=== PATIENT | male | born 1930 | race Caucasian/White ===

== ENCOUNTER 2019-02-27 12:41 | Inpatient (IN) | payer MEDICARE, OTHER ==
[~2019-02-27] VITALS: Ht 185.4 cm; Wt 85.0 kg
[2019-02-27 13:42] LABS: BASOPHILS % (AUTO) 0.6 % (0-1); EOSINOPHILS # (AUTO) 0.2 X10'3 (0-0.9); EOSINOPHILS % (AUTO) 2.6 % (0-6); HEMATOCRIT 43.7 % (42.0-52.0); HEMOGLOBIN 14.5 g/dl (14.0-17.9); LYMPHOCYTES # (AUTO) 1.5 X10'3 (1.1-4.8); LYMPHOCYTES % (AUTO) 16.4 % (21-51); MEAN CORPUSCULAR HEMOGLOBIN 30.6 PG (27.0-31.0); MEAN CORPUSCULAR HGB CONC 33.2 g/dL (33.0-36.5); MEAN CORPUSCULAR VOLUME 92.2 FL (78-98); MEAN PLATELET VOLUME 8.1 FL (7.4-10.4); MONOCYTES # (AUTO) 0.6 X10'3 (0-0.9); NEUTROPHILS # (AUTO) 6.5 X10'3 (1.8-7.7); NEUTROPHILS % (AUTO) 73.4 % (42-75); PLATELET COUNT 223 X10'3 (140-440); RED BLOOD COUNT 4.74 X10'6 (4.70-6.10); RED CELL DISTRIBUTION WIDTH 15.2 % (11.5-14.5); WHITE BLOOD COUNT 8.9 X10'3 (4.5-11.0)
[2019-02-27 13:54] LABS: ALANINE AMINOTRANSFERASE 29 U/L (12-78); ALBUMIN 4.1 G/DL (3.4-5.0); ALBUMIN/GLOBULIN RATIO 1.1 (1.1-1.5); ALKALINE PHOSPHATASE 73 IU/L (46-116); ANION GAP 4 (8-16); ASPARTATE AMINO TRANSFERASE 23 U/L (10-37); BILIRUBIN,TOTAL 0.6 MG/DL (0.1-1.0); BLOOD UREA NITROGEN 31 MG/DL (7-18); BUN/CREATININE RATIO 18.6 (5.4-32.0); CALCIUM 9.9 MG/DL (8.5-10.1); CHLORIDE 102 MMOL/L (99-107); CREATININE 1.67 MG/DL (0.60-1.10); GLUCOSE 113 MG/DL (70-104); POTASSIUM 4.6 MMOL/L (3.5-5.1); SODIUM 139 MMOL/L (135-145); TOTAL CARBON DIOXIDE 32.9 MMOL/L (24-32); TOTAL PROTEIN 7.9 G/DL (6.4-8.2); eGFR 39 ML/MIN
[2019-02-27 13:56] LABS: LIPASE 204 U/L (73-393); TROPONIN I 0.06 NG/ML (0.0-0.05)
[2019-02-27] MEDS ORDERED: morphine 4 MG/ML inj SYRINge IV PRN (14:35)
[2019-02-27] MEDS ORDERED: ondansetron/PF 4mg/2ml inj IV ONE (14:35)
[2019-02-27] MEDS ORDERED: APIX2.5T PO (15:37)
[2019-02-27] MEDS ORDERED: ACET-75 PO (15:37)
[2019-02-27] MEDS ORDERED: ALBU8.5H8 INH (15:37)
[2019-02-27] MEDS ORDERED: FURO-150 PO (15:37)
[2019-02-27] MEDS ORDERED: AMLO5TAB PO (15:37)
[2019-02-27 15:57] LABS: CLARITY,URINE CLEAR (Clear); COLOR,URINE STRAW (Yellow); GLUCOSE, URINE NEGATIVE (Neg); KETONES,URINE TRACE mg/dl (Neg); LEUKOCYTE ESTERASE ,URINE NEGATIVE (Neg); NITRITES, URINE NEGATIVE (Neg); OCCULT BLOOD,URINE SMALL (Neg); PH,URINE 5.5 (4.8-8.0); PROTEIN,URINE TRACE mg/dl (Neg); UROBILINOGEN,URINE 0.2 E.U/dL (0.2-1.0)
[2019-02-27] MEDS ORDERED: morphine 2 MG/ML inj. syringe IV PRN ×2 (16:00)
[2019-02-27] MEDS ORDERED: mag hydrox/Alum hydrox/simeth 30ml oral suspension PO PRN (16:00)
[2019-02-27] MEDS ORDERED: ondansetron/PF 4mg/2ml inj IV PRN (16:00)
[2019-02-27] MEDS ORDERED: magnesium hydroxide 30ml (MOM) UD suspension PO PRN (16:00)
[2019-02-27] MEDS ORDERED: acetaminophen 325mg tablet PO PRN (16:00)
[2019-02-27 16:02] LABS: UA COLLECTION TYPE CLN CATCH MIDSTREAM
[2019-02-27 16:03] LABS: BACTERIA,URINE NONE SEEN /HPF (Neg); MUCUS STRANDS NONE SEEN /LPF (Neg); RBC,URINE 0-2 /HPF (0-2); SQUAMOUS EPITHELIAL CELL,UR NONE SEEN /LPF (FEW); WBC,URINE NONE SEEN /HPF (0-4)
[2019-02-27] MEDS: normal saline 1000ml 1,000 ML IV SCH (16:19)
[2019-02-27] MEDS ORDERED: hydrALAZINE 20mg/ml inj. IV PRN (17:00)
[2019-02-27] MEDS ORDERED: LISI10TA4 PO (17:07)
--- NOTE | 2019-02-27 17:17 | NUR ---
echo at bedside
[2019-02-27] MEDS ORDERED: albuterol 2.5 MG/3 ML nebule NEB PRN (17:35)
--- NOTE | 2019-02-27 19:55 | NUR ---
CALLED TO GIVE REPORT. SETH SAID SHE NEEDS TO CALL BACK TO GET REPORT.
[2019-02-27] MEDS ORDERED: heparin, porcine 5000 units/ml vial SQ SCH (20:00)
--- NOTE | 2019-02-27 20:20 | NUR ---
Patient in room PCU 3028. I have received report from Brigette WILSON (ER) and had the opportunity to ask questions and assume patient care. Patient arrived to PCU by vj and ambulated to his bed. dining room attendant placed, vital signs taken. Patient oriented to room and call light. All belongings placed in a bag and put in patient's closet.
[2019-02-27 20:25] VITALS: BP 180/74
[2019-02-27] MEDS: acetaminophen 325mg tablet PO SCH (21:00)
[2019-02-27] MEDS: apixaban 2.5mg tablet PO SCH (21:09)
[2019-02-27] MEDS: carVEDilol 3.125mg tablet PO SCH (21:10)
[2019-02-27 23:00] VITALS: BP 176/74
--- NOTE | 2019-02-28 00:01 | NUR ---
Orders did not get placed for serial troponins when patient was in ER. The 3 hour and 6 hour trops were missed. Orders placed for 12 hour troponin.
[2019-02-28 01:54] LABS: ALBUMIN 3.9 G/DL (3.4-5.0); ANION GAP 3 (8-16); BLOOD UREA NITROGEN 30 MG/DL (7-18); BUN/CREATININE RATIO 19.5 (5.4-32.0); CALCIUM 10.1 MG/DL (8.5-10.1); CHLORIDE 99 MMOL/L (99-107); CREATININE 1.54 MG/DL (0.60-1.10); GLUCOSE 114 MG/DL (70-104); POTASSIUM 4.6 MMOL/L (3.5-5.1); SODIUM 136 MMOL/L (135-145); TOTAL CARBON DIOXIDE 34.3 MMOL/L (24-32); TROPONIN I 0.19 NG/ML (0.0-0.05); eGFR 43 ML/MIN
[2019-02-28 02:00] LABS: BASOPHILS % (AUTO) 0.4 % (0-1); EOSINOPHILS % (AUTO) 0.2 % (0-6); HEMATOCRIT 42.2 % (42.0-52.0); HEMOGLOBIN 14.2 g/dl (14.0-17.9); LYMPHOCYTES % (AUTO) 8.9 % (21-51); MEAN CORPUSCULAR HEMOGLOBIN 30.8 PG (27.0-31.0); MEAN CORPUSCULAR HGB CONC 33.6 g/dL (33.0-36.5); MEAN CORPUSCULAR VOLUME 91.4 FL (78-98); MEAN PLATELET VOLUME 8.1 FL (7.4-10.4); MONOCYTES # (AUTO) 0.7 X10'3 (0-0.9); MONOCYTES % (AUTO) 6.3 % (2-12); NEUTROPHILS # (AUTO) 9.8 X10'3 (1.8-7.7); NEUTROPHILS % (AUTO) 84.2 % (42-75); PLATELET COUNT 217 X10'3 (140-440); RED BLOOD COUNT 4.62 X10'6 (4.70-6.10); RED CELL DISTRIBUTION WIDTH 15.1 % (11.5-14.5); WHITE BLOOD COUNT 11.7 X10'3 (4.5-11.0)
[2019-02-28] MEDS: normal saline 1000ml 1,000 ML IV SCH ×3 (02:00→21:53)
[2019-02-28 03:00] VITALS: BP 163/73
[2019-02-28 06:00] VITALS: BP 169/78
--- NOTE | 2019-02-28 06:22 | NUR ---
Problems reprioritized. Patient report given, questions answered & plan of care reviewed with Marilou WILSNO.
--- NOTE | 2019-02-28 07:22 | NUR ---
Patient in room PCU 3028B. I have received report from Lisa WILSON and had the opportunity to ask questions and assume patient care. Patient awake, alert, sitting up in bed. 2RN skin check performed with Lisa WILSON.
[2019-02-28] MEDS: carVEDilol 3.125mg tablet PO SCH ×2 (08:35→20:29)
[2019-02-28] MEDS: aspirin 81mg tablet.DR PO SCH (08:36)
[2019-02-28] MEDS: apixaban 2.5mg tablet PO SCH ×2 (08:37→20:29)
[2019-02-28] MEDS: atorvastatin 20mg tablet PO SCH (08:37)
[2019-02-28] MEDS: amLODIPine 5mg tablet PO SCH (08:37)
[2019-02-28] MEDS: lisinopril 10 MG tablet PO SCH (08:37)
[2019-02-28 11:00] VITALS: BP 146/63
--- NOTE | 2019-02-28 12:56 | NUR ---
Paged hospitalist, Dr. May, regarding patient's troponin result. PAGER ID: [phone] MESSAGE: Marilou hamilton [phone]. RE Sofiya Herrera8Marie. FYI troponin result is in 0.20, prior was 0.19. Still planning for stress test? Thanks.
[2019-02-28] MEDS ORDERED: aminophylline 250mg/10ml inj. IV PRN (13:00)
[2019-02-28] MEDS ORDERED: regadenoson 0.4mg/5ml syringe IV ONE (13:00)
[2019-02-28] MEDS ORDERED: metoprolol tartrate 1mg/ml inj IV PRN (13:00)
[2019-02-28] MEDS ORDERED: nitroGLYCERIN 0.4mg SUBLingual tab SL PRN (13:00)
[2019-02-28 15:00] VITALS: BP 153/75
[2019-02-28 18:00] VITALS: BP 161/66
--- NOTE | 2019-02-28 18:21 | NUR ---
Problems reprioritized. Patient report given, questions answered & plan of care reviewed with Antonette WILSON. Patient sitting up in bed, sleepy but awakes to voice.
--- NOTE | 2019-02-28 18:22 | NUR ---
Patient in room PCU 3028B. I have received report from Marilou Arriaza RN and had the opportunity to ask questions and assume patient care. Pt denies CP, dizziness, n/v, and rated pain 0/10.
[2019-02-28] MEDS: acetaminophen 325mg tablet PO SCH (20:31)
[2019-02-28 22:00] VITALS: BP 125/54
[2019-03-01] VITALS (14 sets, daily range): BP systolic 94–139; BP diastolic 41–60
[2019-03-01 05:35] LABS: BASOPHILS % (AUTO) 0.1 % (0-1); EOSINOPHILS % (AUTO) 0.1 % (0-6); HEMOGLOBIN 13.1 g/dl (14.0-17.9); LYMPHOCYTES # (AUTO) 1.1 X10'3 (1.1-4.8); LYMPHOCYTES % (AUTO) 8.6 % (21-51); MEAN CORPUSCULAR HEMOGLOBIN 30.6 PG (27.0-31.0); MEAN CORPUSCULAR HGB CONC 33.5 g/dL (33.0-36.5); MEAN CORPUSCULAR VOLUME 91.4 FL (78-98); MEAN PLATELET VOLUME 8.3 FL (7.4-10.4); MONOCYTES # (AUTO) 1.1 X10'3 (0-0.9); MONOCYTES % (AUTO) 8.7 % (2-12); NEUTROPHILS # (AUTO) 10.1 X10'3 (1.8-7.7); NEUTROPHILS % (AUTO) 82.5 % (42-75); PLATELET COUNT 184 X10'3 (140-440); RED BLOOD COUNT 4.27 X10'6 (4.70-6.10); RED CELL DISTRIBUTION WIDTH 15.2 % (11.5-14.5); WHITE BLOOD COUNT 12.3 X10'3 (4.5-11.0)
[2019-03-01 05:47] LABS: ALBUMIN 3.1 G/DL (3.4-5.0); ANION GAP 6 (8-16); BLOOD UREA NITROGEN 27 MG/DL (7-18); BUN/CREATININE RATIO 19.1 (5.4-32.0); CALCIUM 8.6 MG/DL (8.5-10.1); CHLORIDE 102 MMOL/L (99-107); CREATININE 1.41 MG/DL (0.60-1.10); GLUCOSE 104 MG/DL (70-104); POTASSIUM 4.6 MMOL/L (3.5-5.1); SODIUM 135 MMOL/L (135-145); TOTAL CARBON DIOXIDE 26.8 MMOL/L (24-32); eGFR 48 ML/MIN
--- NOTE | 2019-03-01 06:20 | NUR ---
Problems reprioritized. Patient report given, questions answered & plan of care reviewed with STEVE Alas. Pt stable at shift change
--- NOTE | 2019-03-01 06:27 | NUR ---
Patient in room PCU 3027. I have received report from Bob WILSON and had the opportunity to ask questions and assume patient care.
[2019-03-01] MEDS: carVEDilol 3.125mg tablet PO SCH ×2 (06:45→20:51)
[2019-03-01] MEDS: amLODIPine 5mg tablet PO SCH (06:46)
[2019-03-01] MEDS: lisinopril 10 MG tablet PO SCH (06:47)
[2019-03-01] MEDS ORDERED: regadenoson 0.4mg/5ml syringe IV ONE (07:00)
[2019-03-01] MEDS: normal saline 1000ml 1,000 ML IV SCH ×2 (08:20→21:00)
[2019-03-01] MEDS: atorvastatin 20mg tablet PO SCH (09:40)
[2019-03-01] MEDS: aspirin 81mg tablet.DR PO SCH (09:40)
[2019-03-01] MEDS: apixaban 2.5mg tablet PO SCH (09:40)
[2019-03-01] MEDS ORDERED: acetylcysteine 200 MG/ml 4ml vial PO ONE (14:55)
--- NOTE | 2019-03-01 18:18 | NUR ---
Problems reprioritized. Patient report given, questions answered & plan of care reviewed with Armando WILSON.
--- NOTE | 2019-03-01 18:31 | NUR ---
Patient in room PCU 3028. I have received report from Evette WILSON and had the opportunity to ask questions and assume patient care.
--- NOTE | 2019-03-01 18:50 | NUR ---
Pt sitting on edge of bed with visitor at bedside, in no apparent distress. Pt alert and oriented, on room air, lungs clear, bowel sounds present, 20g IV SL in right AC. Plan of care reviewed and questions answered, will monitor pt and provide intervention according to physician orders and protocol.
[2019-03-01] MEDS: acetaminophen 325mg tablet PO SCH (20:52)
[2019-03-01] MEDS: acetylcysteine 200 MG/ml 4ml vial PO SCH (20:54)
[2019-03-02] MEDS: normal saline 1000ml 1,000 ML IV SCH (05:13)
[2019-03-02 05:30] LABS: BASOPHILS % (AUTO) 0.4 % (0-1); EOSINOPHILS # (AUTO) 0.1 X10'3 (0-0.9); EOSINOPHILS % (AUTO) 0.8 % (0-6); HEMOGLOBIN 12.4 g/dl (14.0-17.9); LYMPHOCYTES # (AUTO) 1.1 X10'3 (1.1-4.8); MEAN CORPUSCULAR HEMOGLOBIN 31.2 PG (27.0-31.0); MEAN CORPUSCULAR HGB CONC 33.6 g/dL (33.0-36.5); MEAN CORPUSCULAR VOLUME 92.8 FL (78-98); MEAN PLATELET VOLUME 8.5 FL (7.4-10.4); MONOCYTES # (AUTO) 0.8 X10'3 (0-0.9); MONOCYTES % (AUTO) 8.1 % (2-12); NEUTROPHILS # (AUTO) 8.3 X10'3 (1.8-7.7); NEUTROPHILS % (AUTO) 79.7 % (42-75); PLATELET COUNT 171 X10'3 (140-440); RED BLOOD COUNT 3.98 X10'6 (4.70-6.10); RED CELL DISTRIBUTION WIDTH 15.4 % (11.5-14.5); WHITE BLOOD COUNT 10.4 X10'3 (4.5-11.0)
[2019-03-02 05:50] LABS: ALBUMIN 2.9 G/DL (3.4-5.0); ANION GAP 7 (8-16); BLOOD UREA NITROGEN 34 MG/DL (7-18); BUN/CREATININE RATIO 21.8 (5.4-32.0); CALCIUM 8.5 MG/DL (8.5-10.1); CHLORIDE 102 MMOL/L (99-107); CREATININE 1.56 MG/DL (0.60-1.10); GLUCOSE 97 MG/DL (70-104); POTASSIUM 4.2 MMOL/L (3.5-5.1); SODIUM 135 MMOL/L (135-145); TOTAL CARBON DIOXIDE 26.4 MMOL/L (24-32); eGFR 42 ML/MIN
--- NOTE | 2019-03-02 06:25 | NUR ---
Problems reprioritized. Patient report given, questions answered & plan of care reviewed with Ileana WILSON.
[2019-03-02 07:00] VITALS: BP 116/59
[2019-03-02] MEDS: amLODIPine 5mg tablet PO SCH (08:25)
[2019-03-02] MEDS: atorvastatin 20mg tablet PO SCH (08:25)
[2019-03-02] MEDS: carVEDilol 3.125mg tablet PO SCH (08:26)
[2019-03-02] MEDS: aspirin 81mg tablet.DR PO SCH (08:26)
[2019-03-02] MEDS: lisinopril 10 MG tablet PO SCH (08:26)
[2019-03-02] MEDS: acetylcysteine 200 MG/ml 4ml vial PO SCH (09:21)
[2019-03-02 11:00] VITALS: BP 146/65
[2019-03-02] MEDS ORDERED: APIX5TAB3 PO (12:04)
[2019-03-02] MEDS ORDERED: COR3.125T PO (12:04)
[2019-03-02] MEDS ORDERED: ASPI-1071 PO (12:04)
[2019-03-02] MEDS ORDERED: ATOR20TA66 PO (12:04)
--- NOTE | 2019-03-02 13:00 | NUR ---
Patient was cleared to discharge home. All discharge instructions reviewed and medications reviewed with patient and spouse. All questions answered. F/U appointment made at the [facility] and they will notify the patient if one opens up sooner. Patients stated they will call for the F/U with Dr. Frey. ANKUR DC'd and tele removed. Patient left in stable condition with no concerns at this time. Patient left in stable condition.
== END 2019-03-02 13:02 | disposition home or self-care (01) | DRG 281 ==
LOC: ER 12:42 → ED HOLD 16:02 → PCU 3S 20:14
PROVIDERS: ADMIT Family Medicine; ATTEND Family Medicine
DX: I16.0 Hypertensive urgency (principal); I21.A1 Myocardial infarction type 2; N17.9 Acute kidney failure, unspecified; I48.20 Chronic atrial fibrillation, unspecified; I74.09 Other arterial embolism and thrombosis of abdominal aorta; I12.9 Hypertensive chronic kidney disease with stage 1 through stage 4 chronic kidney disease, or unspecified chronic kidney disease; I35.0 Nonrheumatic aortic (valve) stenosis; K76.89 Other specified diseases of liver; E86.0 Dehydration; N18.9 Chronic kidney disease, unspecified; Z90.79 Acquired absence of other genital organ(s); Z87.891 Personal history of nicotine dependence; Z79.01 Long term (current) use of anticoagulants; Z79.899 Other long term (current) drug therapy
CPT/HCPCS: 36415; 70450; 71045; 74176; 74177; 78452; 80048; 80053; 81001; 83690; 84484; 85025; 87081; 93005; 93017; 93306; 96374; 96375; 99285; A9500; G0378; J0280; J2270; J2405; J2785; J7030

== ENCOUNTER 2020-06-02 09:14 | Emergency (ER) | payer OTHER, MEDICARE ==
[~2020-06-02] VITALS: Ht 182.9 cm; Wt 78.0 kg
[~2020-06-02 09:14] MED LIST: ALBU8.5H8 INH; AMLO5TAB PO; APIX2.5T PO; ATOR20TA66 PO; BUDE10.2 INH; CARV3.12 PO; FLUT16SP2 BOTHNARES; FURO-150 PO; LACT1CAP26 PO; POTA20TA19 PO; TIOT4MIS5 IH
[2020-06-02 10:27] LABS: BASOPHILS # (AUTO) 0.1 X10'3 (0-0.2); BASOPHILS % (AUTO) 0.6 % (0-1); EOSINOPHILS # (AUTO) 0.2 X10'3 (0-0.9); EOSINOPHILS % (AUTO) 1.9 % (0-6); HEMATOCRIT 41.4 % (42.0-52.0); HEMOGLOBIN 13.5 g/dl (14.0-17.9); LYMPHOCYTES # (AUTO) 1.1 X10'3 (1.1-4.8); LYMPHOCYTES % (AUTO) 12.3 % (21-51); MEAN CORPUSCULAR HEMOGLOBIN 29.5 PG (27.0-31.0); MEAN CORPUSCULAR HGB CONC 32.7 g/dL (33.0-36.5); MEAN CORPUSCULAR VOLUME 90.1 FL (78-98); MEAN PLATELET VOLUME 6.9 FL (7.4-10.4); MONOCYTES # (AUTO) 0.7 X10'3 (0-0.9); MONOCYTES % (AUTO) 7.9 % (2-12); NEUTROPHILS # (AUTO) 7.2 X10'3 (1.8-7.7); NEUTROPHILS % (AUTO) 77.3 % (42-75); PLATELET COUNT 321 X10'3 (140-440); RED BLOOD COUNT 4.59 X10'6 (4.70-6.10); RED CELL DISTRIBUTION WIDTH 15.1 % (11.5-14.5); WHITE BLOOD COUNT 9.3 X10'3 (4.5-11.0)
[2020-06-02 10:42] LABS: ALANINE AMINOTRANSFERASE 25 U/L (12-78); ALBUMIN 2.8 G/DL (3.4-5.0); ALBUMIN/GLOBULIN RATIO 0.7 (1.1-1.5); ALKALINE PHOSPHATASE 102 IU/L (46-116); ANION GAP 7 (8-16); ASPARTATE AMINO TRANSFERASE 21 U/L (10-37); BILIRUBIN,TOTAL 0.5 MG/DL (0.1-1.0); BLOOD UREA NITROGEN 17 MG/DL (7-18); BUN/CREATININE RATIO 13.1 (5.4-32.0); CALCIUM 9.2 MG/DL (8.5-10.1); CHLORIDE 103 MMOL/L (99-107); GLUCOSE 112 MG/DL (70-104); POTASSIUM 3.5 MMOL/L (3.5-5.1); SODIUM 143 MMOL/L (135-145); TOTAL CARBON DIOXIDE 32.7 MMOL/L (24-32); eGFR 52 ML/MIN
[2020-06-02] MEDS ORDERED: aspirin 81mg tab.chew PO ONE (12:10)
[2020-06-02] MEDS ORDERED: magnesium hydroxide 30ml (MOM) UD suspension PO PRN (12:55)
[2020-06-02] MEDS ORDERED: ondansetron/PF 4mg/2ml inj IV PRN (12:55)
[2020-06-02] MEDS ORDERED: morphine 2 MG/ML inj. syringe IV PRN ×2 (12:55)
[2020-06-02] MEDS ORDERED: mag hydrox/Alum hydrox/simeth 30ml oral suspension PO PRN (12:55)
[2020-06-02] MEDS ORDERED: acetaminophen 325mg tablet PO PRN (12:55)
[2020-06-02 13:00] VITALS: BP 136/64
[2020-06-02 13:20] VITALS: BP 138/67
[2020-06-02 14:58] VITALS: BP 122/68
[2020-06-02] MEDS ORDERED: heparin, porcine 5000 units/ml vial SQ SCH (20:00)
== END 2020-06-02 15:04 | disposition home or self-care (01) ==
LOC: ER 09:14 → UNDOADMIN 12:52 → ED HOLD 12:52 → UNDODISIN 14:58
DX: R06.02 Shortness of breath (principal); I48.91 Unspecified atrial fibrillation; I10 Essential (primary) hypertension; Z98.890 Other specified postprocedural states; Z79.899 Other long term (current) drug therapy
CPT/HCPCS: 32555; 36415; 71045; 71046; 80053; 83880; 84484; 85025; 93005; 99285; G0378

== ENCOUNTER 2020-06-09 07:25 | Day surgery (SDC) | payer MEDICARE, OTHER ==
[~2020-06-09] VITALS: Ht 185.4 cm; Wt 86.5 kg
[2020-06-09 09:00] VITALS: BP_SYST 130; BP_SYST 132; BP_DIAS 64; BP_DIAS 71
[2020-06-09 09:10] VITALS: BP 125/70
[2020-06-09 09:25] VITALS: BP 127/69
[2020-06-09 09:45] VITALS: BP 127/65
== END 2020-06-09 09:57 | disposition home or self-care (01) ==
LOC: SSTAY O 07:25
PROVIDERS: ATTEND Radiology Vascular & Interventional Radiology
DX: J90 Pleural effusion, not elsewhere classified (principal); I48.91 Unspecified atrial fibrillation; I11.0 Hypertensive heart disease with heart failure; I50.9 Heart failure, unspecified; E78.5 Hyperlipidemia, unspecified; Z98.890 Other specified postprocedural states; Z87.891 Personal history of nicotine dependence; Z79.899 Other long term (current) drug therapy
CPT/HCPCS: 32555; 71045

== ENCOUNTER 2020-06-16 07:05 | Day surgery (SDC) | payer OTHER, MEDICARE ==
[~2020-06-16] VITALS: Ht 185.4 cm; Wt 86.8 kg
[2020-06-16] MEDS ORDERED: albumin 25% 100mL bottle x 1 IV PRN (07:30)
[2020-06-16 07:45] VITALS: BP 119/60
[2020-06-16 09:25] VITALS: BP 127/68
[2020-06-16 09:30] VITALS: BP 130/52
[2020-06-16 09:34] VITALS: BP 109/73
[2020-06-16 09:45] VITALS: BP 129/71
[2020-06-16 10:04] VITALS: BP 120/55
== END 2020-06-16 10:15 | disposition home or self-care (01) ==
LOC: SSTAY O 07:05
PROVIDERS: ATTEND Radiology Vascular & Interventional Radiology
DX: J90 Pleural effusion, not elsewhere classified (principal); I48.91 Unspecified atrial fibrillation; I11.0 Hypertensive heart disease with heart failure; I50.9 Heart failure, unspecified; E78.5 Hyperlipidemia, unspecified; I35.0 Nonrheumatic aortic (valve) stenosis; Z90.79 Acquired absence of other genital organ(s); Z79.01 Long term (current) use of anticoagulants; Z79.899 Other long term (current) drug therapy; Z87.891 Personal history of nicotine dependence
CPT/HCPCS: 32555; 71045

== ENCOUNTER 2020-06-23 07:54 | Day surgery (SDC) | payer OTHER ==
[~2020-06-23] VITALS: Ht 182.9 cm; Wt 86.2 kg
[2020-06-23] MEDS ORDERED: DOCU-148 PO (08:33)
[2020-06-23 08:35] VITALS: BP 134/62
[2020-06-23 09:40] VITALS: BP 132/67
[2020-06-23 09:45] VITALS: BP 128/58
[2020-06-23 10:00] VITALS: BP 135/59
[2020-06-23 10:15] VITALS: BP 138/52
[2020-06-23 10:30] VITALS: BP 145/69
== END 2020-06-23 10:40 | disposition home or self-care (01) ==
LOC: SSTAY O 07:54
PROVIDERS: ATTEND Radiology Vascular & Interventional Radiology
DX: J90 Pleural effusion, not elsewhere classified (principal); I11.0 Hypertensive heart disease with heart failure; I50.9 Heart failure, unspecified; I48.91 Unspecified atrial fibrillation; E78.5 Hyperlipidemia, unspecified; I35.0 Nonrheumatic aortic (valve) stenosis; Z90.79 Acquired absence of other genital organ(s); Z79.899 Other long term (current) drug therapy; Z79.01 Long term (current) use of anticoagulants; Z87.891 Personal history of nicotine dependence
CPT/HCPCS: 32555; 71045

== ENCOUNTER 2020-06-30 07:20 | Day surgery (SDC) | payer OTHER ==
[~2020-06-30] VITALS: Ht 182.9 cm; Wt 85.8 kg
[~2020-06-30 07:20] MED LIST changes: +DOCU-148 PO; -POTA20TA19 PO
[2020-06-30 08:15] VITALS: BP 119/59
[2020-06-30] MEDS ORDERED: albumin 25% 100mL bottle x 1 IV PRN (08:15)
[2020-06-30 08:45] VITALS: BP 111/51
[2020-06-30 08:57] VITALS: BP 134/63
[2020-06-30 09:00] VITALS: BP 136/56
[2020-06-30 09:15] VITALS: BP 108/54
[2020-06-30 09:30] VITALS: BP 115/51
== END 2020-06-30 09:37 | disposition home or self-care (01) ==
LOC: SSTAY O 07:20
PROVIDERS: ATTEND Radiology Vascular & Interventional Radiology
DX: J90 Pleural effusion, not elsewhere classified (principal); I48.91 Unspecified atrial fibrillation; I11.0 Hypertensive heart disease with heart failure; I50.9 Heart failure, unspecified; E78.5 Hyperlipidemia, unspecified; I35.0 Nonrheumatic aortic (valve) stenosis; Z90.79 Acquired absence of other genital organ(s); Z87.891 Personal history of nicotine dependence; Z79.01 Long term (current) use of anticoagulants; Z79.899 Other long term (current) drug therapy
CPT/HCPCS: 32555

== ENCOUNTER 2020-07-14 07:05 | Day surgery (SDC) | payer OTHER ==
[~2020-07-14] VITALS: Ht 182.9 cm; Wt 87.1 kg
[2020-07-14] MEDS ORDERED: albumin 25% 100mL bottle x 1 IV PRN (07:35)
[2020-07-14 07:42] VITALS: BP 143/60
[2020-07-14 08:20] VITALS: BP 121/52
[2020-07-14 08:35] VITALS: BP 126/57
[2020-07-14 08:50] VITALS: BP 113/50
[2020-07-14 09:05] VITALS: BP 115/51
== END 2020-07-14 09:36 ==
LOC: SSTAY O 07:05
PROVIDERS: ATTEND Radiology Diagnostic Radiology
DX: J90 Pleural effusion, not elsewhere classified (principal); I48.91 Unspecified atrial fibrillation; I11.0 Hypertensive heart disease with heart failure; I50.9 Heart failure, unspecified; E78.5 Hyperlipidemia, unspecified; I35.0 Nonrheumatic aortic (valve) stenosis; Z90.79 Acquired absence of other genital organ(s); Z79.899 Other long term (current) drug therapy; Z79.01 Long term (current) use of anticoagulants
CPT/HCPCS: 32555

== ENCOUNTER 2020-07-21 07:13 | Day surgery (SDC) | payer OTHER ==
[~2020-07-21] VITALS: Ht 185.4 cm; Wt 87.2 kg
[2020-07-21] MEDS ORDERED: albumin 25% 100mL bottle x 1 IV PRN (07:40)
[2020-07-21] MEDS ORDERED: normal saline 1000ml 1,000 ML IV PRN (07:40)
[2020-07-21 07:50] VITALS: BP 125/52
[2020-07-21 08:00] VITALS: BP 125/52
[2020-07-21 08:45] VITALS: BP 128/55
[2020-07-21 08:55] VITALS: BP 135/48
[2020-07-21 09:00] VITALS: BP 119/58
[2020-07-21 09:15] VITALS: BP 120/64
== END 2020-07-21 09:30 | disposition home or self-care (01) ==
LOC: SSTAY O 07:13
PROVIDERS: ATTEND Radiology Diagnostic Radiology
DX: J90 Pleural effusion, not elsewhere classified (principal); I48.91 Unspecified atrial fibrillation; I11.0 Hypertensive heart disease with heart failure; I50.9 Heart failure, unspecified; E78.5 Hyperlipidemia, unspecified; I35.0 Nonrheumatic aortic (valve) stenosis; Z90.79 Acquired absence of other genital organ(s); Z79.899 Other long term (current) drug therapy; Z87.891 Personal history of nicotine dependence; Z79.01 Long term (current) use of anticoagulants
CPT/HCPCS: 32555

== ENCOUNTER 2020-07-28 07:11 | Day surgery (SDC) | payer OTHER ==
[~2020-07-28] VITALS: Ht 185.4 cm; Wt 85.4 kg
[2020-07-28] MEDS ORDERED: albumin 25% 100mL bottle x 1 IV PRN (07:40)
[2020-07-28 07:51] VITALS: BP 109/62
[2020-07-28 08:33] VITALS: BP 121/67
[2020-07-28 08:45] VITALS: BP 125/56
[2020-07-28 08:55] VITALS: BP 109/52
[2020-07-28 09:10] VITALS: BP 111/53
== END 2020-07-28 09:20 | disposition home or self-care (01) ==
LOC: SSTAY O 07:11
PROVIDERS: ATTEND Radiology Diagnostic Radiology
DX: J90 Pleural effusion, not elsewhere classified (principal); I48.91 Unspecified atrial fibrillation; I11.0 Hypertensive heart disease with heart failure; I50.9 Heart failure, unspecified; E78.5 Hyperlipidemia, unspecified; I35.0 Nonrheumatic aortic (valve) stenosis; Z90.79 Acquired absence of other genital organ(s); Z87.891 Personal history of nicotine dependence; Z79.899 Other long term (current) drug therapy
CPT/HCPCS: 32555

== ENCOUNTER 2020-08-04 06:58 | Day surgery (SDC) | payer OTHER ==
[~2020-08-04] VITALS: Ht 185.4 cm; Wt 86.5 kg
[2020-08-04 07:47] VITALS: BP 108/65
[2020-08-04 09:15] VITALS: BP 97/49
[2020-08-04 09:17] VITALS: BP 118/44
[2020-08-04 09:33] VITALS: BP 112/52
[2020-08-04 09:47] VITALS: BP 106/49
[2020-08-04 10:00] VITALS: BP 127/53
== END 2020-08-04 10:08 | disposition home or self-care (01) ==
LOC: SSTAY O 06:58
PROVIDERS: ATTEND Radiology Diagnostic Radiology
DX: J90 Pleural effusion, not elsewhere classified (principal); I11.0 Hypertensive heart disease with heart failure; I50.9 Heart failure, unspecified; E78.5 Hyperlipidemia, unspecified; I35.0 Nonrheumatic aortic (valve) stenosis; I48.91 Unspecified atrial fibrillation; Z90.79 Acquired absence of other genital organ(s); Z87.891 Personal history of nicotine dependence; Z79.899 Other long term (current) drug therapy
CPT/HCPCS: 32555

== ENCOUNTER 2020-08-11 06:41 | Day surgery (SDC) | payer OTHER ==
[~2020-08-11] VITALS: Ht 213.4 cm; Wt 85.0 kg
[2020-08-11 07:00] VITALS: BP 128/67
[2020-08-11] MEDS ORDERED: albumin 25% 100mL bottle x 1 IV PRN (07:10)
[2020-08-11] MEDS ORDERED: normal saline 1000ml 1,000 ML IV PRN (07:10)
[2020-08-11 08:33] VITALS: BP 121/59
[2020-08-11 08:45] VITALS: BP 124/60
[2020-08-11 09:00] VITALS: BP 121/63
== END 2020-08-11 09:15 ==
LOC: SSTAY O 06:41
PROVIDERS: ATTEND Radiology Vascular & Interventional Radiology
DX: J90 Pleural effusion, not elsewhere classified (principal); I48.91 Unspecified atrial fibrillation; I11.0 Hypertensive heart disease with heart failure; I50.9 Heart failure, unspecified; E78.5 Hyperlipidemia, unspecified; I35.0 Nonrheumatic aortic (valve) stenosis; Z90.79 Acquired absence of other genital organ(s); Z87.891 Personal history of nicotine dependence; Z79.899 Other long term (current) drug therapy; Z79.01 Long term (current) use of anticoagulants
CPT/HCPCS: 32555

== ENCOUNTER 2020-08-18 06:48 | Day surgery (SDC) | payer OTHER ==
[~2020-08-18] VITALS: Ht 180.3 cm; Wt 85.9 kg
[2020-08-18] MEDS ORDERED: albumin 25% 100mL bottle x 1 IV PRN (07:25)
[2020-08-18 07:27] VITALS: BP 127/61
[2020-08-18 08:35] VITALS: BP 126/61
[2020-08-18 08:48] VITALS: BP 135/78
[2020-08-18 09:00] VITALS: BP 103/50
[2020-08-18 09:15] VITALS: BP 111/54
== END 2020-08-18 09:18 | disposition home or self-care (01) ==
LOC: SSTAY O 06:48
PROVIDERS: ATTEND Radiology Diagnostic Radiology
DX: J90 Pleural effusion, not elsewhere classified (principal); I48.91 Unspecified atrial fibrillation; I11.0 Hypertensive heart disease with heart failure; I50.9 Heart failure, unspecified; E78.5 Hyperlipidemia, unspecified; I35.0 Nonrheumatic aortic (valve) stenosis; Z87.891 Personal history of nicotine dependence; Z90.79 Acquired absence of other genital organ(s)
CPT/HCPCS: 32555

== ENCOUNTER 2020-08-23 07:00 | Day surgery (SDC) | payer OTHER ==
[~2020-08-23] VITALS: Ht 180.3 cm; Wt 85.1 kg
[2020-08-23] VITALS (7 sets, daily range): BP systolic 105–123; BP diastolic 48–55
[2020-08-23] MEDS ORDERED: albumin 25% 100mL bottle x 1 IV PRN (07:35)
== END 2020-08-23 09:10 | disposition home or self-care (01) ==
LOC: SSTAY O 07:00
PROVIDERS: ATTEND Radiology Vascular & Interventional Radiology
DX: J90 Pleural effusion, not elsewhere classified (principal); I48.91 Unspecified atrial fibrillation; I11.0 Hypertensive heart disease with heart failure; I50.9 Heart failure, unspecified; I35.0 Nonrheumatic aortic (valve) stenosis; Z90.79 Acquired absence of other genital organ(s); Z87.891 Personal history of nicotine dependence; Z79.899 Other long term (current) drug therapy
CPT/HCPCS: 32555

== ENCOUNTER 2020-08-30 07:28 | Day surgery (SDC) | payer OTHER ==
[~2020-08-30] VITALS: Ht 180.3 cm; Wt 85.8 kg
[2020-08-30 07:45] VITALS: BP 158/74
[2020-08-30 09:00] VITALS: BP 158/74
[2020-08-30 09:15] VITALS: BP 125/64
[2020-08-30 09:29] VITALS: BP 119/54
== END 2020-08-30 09:50 | disposition short-term general hospital (02) ==
LOC: SSTAY O 07:28
PROVIDERS: ATTEND Radiology Vascular & Interventional Radiology
DX: J90 Pleural effusion, not elsewhere classified (principal); I11.0 Hypertensive heart disease with heart failure; I50.9 Heart failure, unspecified; I48.91 Unspecified atrial fibrillation; E78.5 Hyperlipidemia, unspecified; I35.0 Nonrheumatic aortic (valve) stenosis; Z90.79 Acquired absence of other genital organ(s); Z87.891 Personal history of nicotine dependence; Z79.899 Other long term (current) drug therapy
CPT/HCPCS: 32555; 71045

== ENCOUNTER 2020-09-06 06:54 | Day surgery (SDC) | payer OTHER ==
[~2020-09-06] VITALS: Ht 180.3 cm; Wt 86.1 kg
[2020-09-06] MEDS ORDERED: albumin 25% 100mL bottle x 1 IV PRN (07:20)
== END 2020-09-06 09:35 | disposition home or self-care (01) ==
LOC: SSTAY O 06:54
PROVIDERS: ATTEND Radiology Vascular & Interventional Radiology
DX: J90 Pleural effusion, not elsewhere classified (principal); I11.0 Hypertensive heart disease with heart failure; I50.9 Heart failure, unspecified; E78.5 Hyperlipidemia, unspecified; I35.0 Nonrheumatic aortic (valve) stenosis; Z90.79 Acquired absence of other genital organ(s); Z87.891 Personal history of nicotine dependence; Z79.899 Other long term (current) drug therapy
CPT/HCPCS: 32555

== ENCOUNTER 2020-09-13 06:33 | Day surgery (SDC) | payer OTHER ==
[2020-09-06] VITALS (8 sets, daily range): BP systolic 107–159; BP diastolic 55–96
[~2020-09-13] VITALS: Ht 180.3 cm; Wt 86.1 kg
[2020-09-13 07:00] VITALS: BP 120/59
[2020-09-13] MEDS ORDERED: albumin 25% 100mL bottle x 1 IV PRN (07:05)
[2020-09-13 08:11] VITALS: BP 121/58
[2020-09-13 08:15] VITALS: BP 147/65
[2020-09-13 08:26] VITALS: BP 128/81
[2020-09-13 08:30] VITALS: BP 103/65
[2020-09-13 08:54] VITALS: BP 59/65
== END 2020-09-13 09:05 | disposition home or self-care (01) ==
LOC: SSTAY O 06:33
PROVIDERS: ATTEND Radiology Vascular & Interventional Radiology
DX: J90 Pleural effusion, not elsewhere classified (principal); I48.91 Unspecified atrial fibrillation; I11.0 Hypertensive heart disease with heart failure; I50.9 Heart failure, unspecified; E78.5 Hyperlipidemia, unspecified; I35.0 Nonrheumatic aortic (valve) stenosis; Z90.79 Acquired absence of other genital organ(s); Z87.891 Personal history of nicotine dependence
CPT/HCPCS: 32555

== ENCOUNTER 2020-09-20 06:31 | Day surgery (SDC) | payer OTHER ==
[~2020-09-20] VITALS: Ht 185.4 cm; Wt 85.7 kg
[2020-09-20] MEDS ORDERED: albumin 25% 100mL bottle x 1 IV PRN (06:50)
[2020-09-20 07:11] VITALS: BP 125/53
[2020-09-20 09:00] VITALS: BP 129/55
[2020-09-20 09:15] VITALS: BP 122/85
[2020-09-20 09:30] VITALS: BP 125/58
== END 2020-09-20 09:35 | disposition home or self-care (01) ==
LOC: SSTAY O 06:31
PROVIDERS: ATTEND Radiology Vascular & Interventional Radiology
DX: J90 Pleural effusion, not elsewhere classified (principal); I48.91 Unspecified atrial fibrillation; I11.0 Hypertensive heart disease with heart failure; I50.9 Heart failure, unspecified; E78.5 Hyperlipidemia, unspecified; I35.0 Nonrheumatic aortic (valve) stenosis; Z90.79 Acquired absence of other genital organ(s); Z87.891 Personal history of nicotine dependence; Z79.899 Other long term (current) drug therapy; Z79.01 Long term (current) use of anticoagulants
CPT/HCPCS: 32555

== ENCOUNTER 2020-09-27 06:35 | Day surgery (SDC) | payer OTHER ==
[~2020-09-27] VITALS: Ht 180.3 cm; Wt 84.2 kg
[2020-09-27 07:11] VITALS: BP 118/67
[2020-09-27 08:30] VITALS: BP 128/78
[2020-09-27 08:38] VITALS: BP 166/94
[2020-09-27 08:45] VITALS: BP 124/70
[2020-09-27 09:15] VITALS: BP 109/55
== END 2020-09-27 09:25 | disposition home or self-care (01) ==
LOC: SSTAY O 06:35
PROVIDERS: ATTEND Radiology Diagnostic Radiology
DX: J90 Pleural effusion, not elsewhere classified (principal); I48.91 Unspecified atrial fibrillation; I11.0 Hypertensive heart disease with heart failure; I50.9 Heart failure, unspecified; E78.5 Hyperlipidemia, unspecified; I35.0 Nonrheumatic aortic (valve) stenosis; Z87.891 Personal history of nicotine dependence; Z90.79 Acquired absence of other genital organ(s); Z79.899 Other long term (current) drug therapy
CPT/HCPCS: 32555

== ENCOUNTER 2020-10-04 06:45 | Day surgery (SDC) | payer OTHER ==
[~2020-10-04] VITALS: Ht 180.3 cm; Wt 83.8 kg
[~2020-10-04 06:45] MED LIST changes: +ALBU8.5H17 INH; -ALBU8.5H8 INH; -CARV3.12 PO
[2020-10-04] MEDS ORDERED: albumin 25% 100mL bottle x 1 IV PRN (08:05)
[2020-10-04 08:14] VITALS: BP 117/51
[2020-10-04 08:49] VITALS: BP 120/58
[2020-10-04 09:00] VITALS: BP 126/61
[2020-10-04 09:15] VITALS: BP 134/66
== END 2020-10-04 09:25 | disposition home or self-care (01) ==
LOC: SSTAY O 06:45
PROVIDERS: ATTEND Radiology Vascular & Interventional Radiology
DX: J90 Pleural effusion, not elsewhere classified (principal); I11.0 Hypertensive heart disease with heart failure; I50.9 Heart failure, unspecified; I48.91 Unspecified atrial fibrillation; E78.5 Hyperlipidemia, unspecified; I35.0 Nonrheumatic aortic (valve) stenosis; Z90.79 Acquired absence of other genital organ(s); Z87.891 Personal history of nicotine dependence; Z79.899 Other long term (current) drug therapy
CPT/HCPCS: 32555

== ENCOUNTER 2020-10-11 06:53 | Day surgery (SDC) | payer OTHER ==
[~2020-10-11] VITALS: Ht 180.3 cm; Wt 85.1 kg
[2020-10-11] MEDS ORDERED: albumin 25% 100mL bottle x 1 IV PRN (07:25)
[2020-10-11 08:15] VITALS: BP 117/61
[2020-10-11 08:50] VITALS: BP 111/56
[2020-10-11 09:00] VITALS: BP 115/56
[2020-10-11 09:15] VITALS: BP 117/66
[2020-10-11 09:30] VITALS: BP 128/64
== END 2020-10-11 09:35 | disposition home or self-care (01) ==
LOC: SSTAY O 06:53
PROVIDERS: ATTEND Radiology Vascular & Interventional Radiology
DX: J90 Pleural effusion, not elsewhere classified (principal); I48.91 Unspecified atrial fibrillation; I11.0 Hypertensive heart disease with heart failure; I50.9 Heart failure, unspecified; E78.5 Hyperlipidemia, unspecified; I35.0 Nonrheumatic aortic (valve) stenosis; Z90.79 Acquired absence of other genital organ(s); Z87.891 Personal history of nicotine dependence; Z79.899 Other long term (current) drug therapy
CPT/HCPCS: 32555

== ENCOUNTER 2020-10-18 06:40 | Day surgery (SDC) | payer OTHER ==
[~2020-10-18] VITALS: Ht 180.3 cm; Wt 85.2 kg
[2020-10-18] MEDS ORDERED: albumin 25% 100mL bottle x 1 IV PRN (07:10)
[2020-10-18 08:02] VITALS: BP 121/51
[2020-10-18 08:30] VITALS: BP 125/51
[2020-10-18 08:45] VITALS: BP 135/50
[2020-10-18 09:00] VITALS: BP 135/57
[2020-10-18 09:15] VITALS: BP 135/56
== END 2020-10-18 09:15 | disposition home or self-care (01) ==
LOC: SSTAY O 06:40
PROVIDERS: ATTEND Radiology Diagnostic Radiology
DX: J90 Pleural effusion, not elsewhere classified (principal); I11.0 Hypertensive heart disease with heart failure; I50.9 Heart failure, unspecified; I48.91 Unspecified atrial fibrillation; E78.5 Hyperlipidemia, unspecified; I35.0 Nonrheumatic aortic (valve) stenosis; Z87.891 Personal history of nicotine dependence; Z90.79 Acquired absence of other genital organ(s)
CPT/HCPCS: 32555

== ENCOUNTER 2020-10-25 06:29 | Day surgery (SDC) | payer OTHER ==
[~2020-10-25] VITALS: Ht 185.4 cm; Wt 84.6 kg
[2020-10-25 06:55] VITALS: BP 138/56
[2020-10-25] MEDS ORDERED: albumin 25% 100mL bottle x 1 IV PRN (07:05)
[2020-10-25 08:07] VITALS: BP 127/59
[2020-10-25 08:15] VITALS: BP 120/58
[2020-10-25 08:19] VITALS: BP 125/44
[2020-10-25 08:30] VITALS: BP 115/53
[2020-10-25 08:45] VITALS: BP 118/56
== END 2020-10-25 08:50 ==
LOC: SSTAY O 06:29
PROVIDERS: ATTEND Radiology Diagnostic Radiology
DX: J90 Pleural effusion, not elsewhere classified (principal); I48.91 Unspecified atrial fibrillation; I11.0 Hypertensive heart disease with heart failure; I50.9 Heart failure, unspecified; E78.5 Hyperlipidemia, unspecified; Z90.79 Acquired absence of other genital organ(s); Z87.891 Personal history of nicotine dependence; Z79.01 Long term (current) use of anticoagulants; Z79.899 Other long term (current) drug therapy
CPT/HCPCS: 32555

== ENCOUNTER 2020-11-01 07:00 | Day surgery (SDC) | payer OTHER ==
[~2020-11-01] VITALS: Ht 180.3 cm; Wt 84.1 kg
[2020-11-01 07:35] VITALS: BP 120/51
[2020-11-01] MEDS ORDERED: albumin 25% 100mL bottle x 1 IV PRN (07:45)
[2020-11-01 09:18] VITALS: BP 136/64
[2020-11-01 09:41] VITALS: BP 121/61
[2020-11-01 10:00] VITALS: BP 135/62
== END 2020-11-01 10:10 | disposition home or self-care (01) ==
LOC: SSTAY O 07:00
PROVIDERS: ATTEND Radiology Vascular & Interventional Radiology
DX: J90 Pleural effusion, not elsewhere classified (principal); I10 Essential (primary) hypertension; I50.9 Heart failure, unspecified; E78.5 Hyperlipidemia, unspecified; I35.0 Nonrheumatic aortic (valve) stenosis; I48.91 Unspecified atrial fibrillation; Z87.891 Personal history of nicotine dependence; Z90.79 Acquired absence of other genital organ(s); Z79.899 Other long term (current) drug therapy
CPT/HCPCS: 32555

== ENCOUNTER 2020-11-08 06:45 | Day surgery (SDC) | payer OTHER ==
[~2020-11-08] VITALS: Ht 180.3 cm; Wt 81.9 kg
[2020-11-08] MEDS ORDERED: normal saline 1000ml 1,000 ML IV PRN (07:00)
[2020-11-08] MEDS ORDERED: albumin 25% 100mL bottle x 1 IV PRN (07:00)
[2020-11-08 07:06] VITALS: BP 126/88
[2020-11-08 09:45] VITALS: BP 122/78
== END 2020-11-08 09:25 | disposition home or self-care (01) ==
LOC: SSTAY O 06:45
PROVIDERS: ATTEND Radiology Vascular & Interventional Radiology
DX: J90 Pleural effusion, not elsewhere classified (principal); I48.91 Unspecified atrial fibrillation; I11.0 Hypertensive heart disease with heart failure; I50.9 Heart failure, unspecified; E78.5 Hyperlipidemia, unspecified; I35.0 Nonrheumatic aortic (valve) stenosis; Z90.79 Acquired absence of other genital organ(s); Z79.899 Other long term (current) drug therapy
CPT/HCPCS: 32555

== ENCOUNTER 2020-11-15 07:36 | Day surgery (SDC) | payer OTHER ==
[2020-11-15] VITALS (8 sets, daily range): BP systolic 113–130; BP diastolic 50–64
[~2020-11-15] VITALS: Ht 180.3 cm; Wt 80.7 kg
[2020-11-15] MEDS ORDERED: albumin 25% 100mL bottle x 1 IV PRN (08:10)
== END 2020-11-15 10:35 | disposition home or self-care (01) ==
LOC: SSTAY O 07:36
PROVIDERS: ATTEND Radiology Vascular & Interventional Radiology
DX: J90 Pleural effusion, not elsewhere classified (principal); I11.0 Hypertensive heart disease with heart failure; I50.9 Heart failure, unspecified; E78.5 Hyperlipidemia, unspecified; I35.0 Nonrheumatic aortic (valve) stenosis; I48.91 Unspecified atrial fibrillation; Z90.79 Acquired absence of other genital organ(s); Z87.891 Personal history of nicotine dependence; Z79.899 Other long term (current) drug therapy
CPT/HCPCS: 32555

== ENCOUNTER 2020-11-22 06:45 | Day surgery (SDC) | payer OTHER ==
[~2020-11-22] VITALS: Ht 180.3 cm; Wt 80.8 kg
[2020-11-22 07:10] VITALS: BP 126/49
[2020-11-22] MEDS ORDERED: albumin 25% 100mL bottle x 1 IV PRN (07:10)
[2020-11-22 08:35] VITALS: BP 118/45
[2020-11-22 08:45] VITALS: BP 119/53
[2020-11-22 09:00] VITALS: BP 143/53
[2020-11-22 09:15] VITALS: BP 123/58
== END 2020-11-22 09:25 | disposition home or self-care (01) ==
LOC: SSTAY O 06:45
PROVIDERS: ATTEND Radiology Vascular & Interventional Radiology
DX: J90 Pleural effusion, not elsewhere classified (principal); I48.91 Unspecified atrial fibrillation; I11.0 Hypertensive heart disease with heart failure; I50.9 Heart failure, unspecified; E78.5 Hyperlipidemia, unspecified; I35.0 Nonrheumatic aortic (valve) stenosis; Z90.79 Acquired absence of other genital organ(s); Z87.891 Personal history of nicotine dependence; Z79.899 Other long term (current) drug therapy
CPT/HCPCS: 32555

== ENCOUNTER 2020-11-29 06:42 | Day surgery (SDC) | payer OTHER ==
[~2020-11-29] VITALS: Ht 180.3 cm; Wt 82.4 kg
[2020-11-29 07:04] VITALS: BP 119/60
[2020-11-29] MEDS ORDERED: albumin 25% 100mL bottle x 1 IV PRN (07:25)
[2020-11-29 09:00] VITALS: BP 132/65
[2020-11-29 09:15] VITALS: BP 135/60
[2020-11-29 09:30] VITALS: BP 126/53
== END 2020-11-29 09:35 | disposition home or self-care (01) ==
LOC: SSTAY O 06:42
PROVIDERS: ATTEND Radiology Diagnostic Radiology
DX: J90 Pleural effusion, not elsewhere classified (principal); I11.0 Hypertensive heart disease with heart failure; I50.9 Heart failure, unspecified; I48.91 Unspecified atrial fibrillation; E78.5 Hyperlipidemia, unspecified; I35.0 Nonrheumatic aortic (valve) stenosis; Z87.891 Personal history of nicotine dependence; Z90.79 Acquired absence of other genital organ(s); Z79.899 Other long term (current) drug therapy; Z79.01 Long term (current) use of anticoagulants
CPT/HCPCS: 32555; 36561; 76937; 77001; 99152; 99153

== ENCOUNTER 2020-12-06 06:39 | Day surgery (SDC) | payer OTHER ==
[~2020-12-06] VITALS: Ht 180.3 cm; Wt 82.5 kg
[2020-12-06] MEDS ORDERED: albumin 25% 100mL bottle x 1 IV PRN (07:10)
[2020-12-06 07:40] VITALS: BP 127/76
[2020-12-06 08:54] VITALS: BP 130/75
[2020-12-06 09:23] VITALS: BP 120/47
== END 2020-12-06 09:50 | disposition home or self-care (01) ==
LOC: SSTAY O 06:39
PROVIDERS: ATTEND Radiology Vascular & Interventional Radiology
DX: J90 Pleural effusion, not elsewhere classified (principal); I48.91 Unspecified atrial fibrillation; I11.0 Hypertensive heart disease with heart failure; I50.9 Heart failure, unspecified; I35.0 Nonrheumatic aortic (valve) stenosis; Z90.89 Acquired absence of other organs; Z87.891 Personal history of nicotine dependence; Z79.899 Other long term (current) drug therapy
CPT/HCPCS: 32555

== ENCOUNTER 2020-12-13 06:56 | Day surgery (SDC) | payer OTHER ==
[~2020-12-13] VITALS: Ht 180.3 cm; Wt 82.0 kg
[2020-12-13] MEDS ORDERED: albumin 25% 100mL bottle x 1 IV PRN (07:40)
[2020-12-13 07:44] VITALS: BP 142/61
[2020-12-13 08:50] VITALS: BP 126/62
[2020-12-13 09:05] VITALS: BP 118/59
== END 2020-12-13 09:30 | disposition home or self-care (01) ==
LOC: SSTAY O 06:56
PROVIDERS: ATTEND Radiology Vascular & Interventional Radiology
DX: J90 Pleural effusion, not elsewhere classified (principal); I48.91 Unspecified atrial fibrillation; I11.0 Hypertensive heart disease with heart failure; I50.9 Heart failure, unspecified; E78.5 Hyperlipidemia, unspecified; I35.0 Nonrheumatic aortic (valve) stenosis; Z90.89 Acquired absence of other organs; Z87.891 Personal history of nicotine dependence; Z79.899 Other long term (current) drug therapy
CPT/HCPCS: 32555

== ENCOUNTER 2020-12-20 06:40 | Day surgery (SDC) | payer OTHER ==
[~2020-12-20] VITALS: Ht 180.3 cm; Wt 83.7 kg
[~2020-12-20 06:40] MED LIST changes: -FLUT16SP2 BOTHNARES
[2020-12-20 07:05] VITALS: BP 128/59
[2020-12-20] MEDS ORDERED: normal saline 1000ml 1,000 ML IV PRN (07:10)
[2020-12-20] MEDS ORDERED: albumin 25% 100mL bottle x 1 IV PRN (07:10)
[2020-12-20 08:40] VITALS: BP 122/58
[2020-12-20 09:10] VITALS: BP 126/57
[2020-12-20 09:15] VITALS: BP_SYST 130; BP_SYST 133; BP_DIAS 38; BP_DIAS 53
[2020-12-20 09:30] VITALS: BP 115/63
== END 2020-12-20 09:30 | disposition home or self-care (01) ==
LOC: SSTAY O 06:40
PROVIDERS: ATTEND Radiology Diagnostic Radiology
DX: J90 Pleural effusion, not elsewhere classified (principal); I48.91 Unspecified atrial fibrillation; I11.0 Hypertensive heart disease with heart failure; I50.9 Heart failure, unspecified; E78.5 Hyperlipidemia, unspecified; Z87.891 Personal history of nicotine dependence; Z79.899 Other long term (current) drug therapy; Z98.890 Other specified postprocedural states
CPT/HCPCS: 32555

== ENCOUNTER 2020-12-27 06:41 | Day surgery (SDC) | payer OTHER ==
[2020-12-27] VITALS (7 sets, daily range): BP systolic 115–144; BP diastolic 61–71
[~2020-12-27] VITALS: Ht 180.3 cm; Wt 82.8 kg
[2020-12-27] MEDS ORDERED: normal saline 1000ml 1,000 ML IV PRN (07:00)
[2020-12-27] MEDS ORDERED: albumin 25% 100mL bottle x 1 IV PRN (07:00)
== END 2020-12-27 09:05 | disposition home or self-care (01) ==
LOC: SSTAY O 06:41
PROVIDERS: ATTEND Radiology Vascular & Interventional Radiology
DX: J90 Pleural effusion, not elsewhere classified (principal); I48.91 Unspecified atrial fibrillation; I11.0 Hypertensive heart disease with heart failure; I50.9 Heart failure, unspecified; E78.5 Hyperlipidemia, unspecified; I35.0 Nonrheumatic aortic (valve) stenosis; Z87.891 Personal history of nicotine dependence; Z90.79 Acquired absence of other genital organ(s); Z79.899 Other long term (current) drug therapy
CPT/HCPCS: 32555

== ENCOUNTER 2021-01-03 06:35 | Day surgery (SDC) | payer OTHER ==
[~2021-01-03] VITALS: Ht 180.3 cm; Wt 82.0 kg
[2021-01-03 07:00] VITALS: BP 129/70
[2021-01-03] MEDS ORDERED: albumin 25% 100mL bottle x 1 IV PRN (07:10)
[2021-01-03] MEDS ORDERED: normal saline 1000ml 1,000 ML IV PRN (07:10)
[2021-01-03 08:31] VITALS: BP 143/53
[2021-01-03 08:45] VITALS: BP 124/62
[2021-01-03 09:00] VITALS: BP 120/64
== END 2021-01-03 09:05 | disposition home or self-care (01) ==
LOC: SSTAY O 06:35
PROVIDERS: ATTEND Radiology Diagnostic Radiology
DX: J90 Pleural effusion, not elsewhere classified (principal); I48.91 Unspecified atrial fibrillation; I11.0 Hypertensive heart disease with heart failure; I50.9 Heart failure, unspecified; E78.5 Hyperlipidemia, unspecified; I35.0 Nonrheumatic aortic (valve) stenosis; Z90.79 Acquired absence of other genital organ(s); Z87.891 Personal history of nicotine dependence; Z79.899 Other long term (current) drug therapy; Z79.01 Long term (current) use of anticoagulants
CPT/HCPCS: 32555

== ENCOUNTER 2021-01-10 06:43 | Day surgery (SDC) | payer OTHER ==
[~2021-01-10] VITALS: Ht 180.3 cm; Wt 83.1 kg
[2021-01-10] MEDS ORDERED: normal saline 1000ml 1,000 ML IV PRN (07:20)
[2021-01-10] MEDS ORDERED: albumin 25% 100mL bottle x 1 IV PRN (07:20)
[2021-01-10] MEDS ORDERED: LIDOcaine 1% 30ml preserv. free vial SQ STA (07:23)
[2021-01-10 07:30] VITALS: BP 112/50
[2021-01-10 08:13] VITALS: BP 115/53
[2021-01-10 08:32] VITALS: BP 132/54
[2021-01-10 08:53] VITALS: BP 139/56
== END 2021-01-10 09:10 | disposition home or self-care (01) ==
LOC: SSTAY O 06:43
PROVIDERS: ATTEND Radiology Diagnostic Radiology
DX: J90 Pleural effusion, not elsewhere classified (principal); I11.0 Hypertensive heart disease with heart failure; I50.9 Heart failure, unspecified; I48.91 Unspecified atrial fibrillation; I35.0 Nonrheumatic aortic (valve) stenosis; E78.5 Hyperlipidemia, unspecified; Z90.79 Acquired absence of other genital organ(s); Z87.891 Personal history of nicotine dependence
CPT/HCPCS: 32555

== ENCOUNTER 2021-01-17 06:26 | Day surgery (SDC) | payer OTHER ==
[~2021-01-17] VITALS: Ht 180.3 cm; Wt 83.1 kg
[2021-01-17] VITALS (9 sets, daily range): BP systolic 122–133; BP diastolic 45–80
[2021-01-17] MEDS ORDERED: albumin 25% 100mL bottle x 1 IV PRN (06:50)
[2021-01-17] MEDS ORDERED: normal saline 1000ml 1,000 ML IV PRN (06:50)
[2021-01-17] MEDS ORDERED: LIDOcaine 1% 30ml preserv. free vial SQ STA (07:02)
== END 2021-01-17 09:20 | disposition home or self-care (01) ==
LOC: SSTAY O 06:26
PROVIDERS: ATTEND Radiology Vascular & Interventional Radiology
DX: J90 Pleural effusion, not elsewhere classified (principal); I48.91 Unspecified atrial fibrillation; I11.0 Hypertensive heart disease with heart failure; I50.9 Heart failure, unspecified; E78.5 Hyperlipidemia, unspecified; I35.0 Nonrheumatic aortic (valve) stenosis; Z90.79 Acquired absence of other genital organ(s); Z87.891 Personal history of nicotine dependence
CPT/HCPCS: 32555

== ENCOUNTER 2021-01-24 06:31 | Day surgery (SDC) | payer OTHER ==
[~2021-01-24] VITALS: Ht 180.3 cm; Wt 83.1 kg
[~2021-01-24 06:31] MED LIST changes: +LIDOcaine 1% 30ml preserv. free vial SQ STA
[2021-01-24] MEDS ORDERED: LIDOcaine 1% 30ml preserv. free vial SQ STA (06:46)
[2021-01-24 06:51] VITALS: BP 125/45
[2021-01-24] MEDS ORDERED: albumin 25% 100mL bottle x 1 IV PRN (07:00)
[2021-01-24 08:30] VITALS: BP 122/47
[2021-01-24 09:30] VITALS: BP 131/57
== END 2021-01-24 09:05 | disposition home or self-care (01) ==
LOC: SSTAY O 06:31
PROVIDERS: ATTEND Radiology Vascular & Interventional Radiology
DX: J90 Pleural effusion, not elsewhere classified (principal); I11.0 Hypertensive heart disease with heart failure; I50.9 Heart failure, unspecified; E78.5 Hyperlipidemia, unspecified; I35.0 Nonrheumatic aortic (valve) stenosis; I48.91 Unspecified atrial fibrillation; Z90.79 Acquired absence of other genital organ(s); Z87.891 Personal history of nicotine dependence
CPT/HCPCS: 32555

== ENCOUNTER 2021-01-31 06:35 | Day surgery (SDC) | payer OTHER ==
[2021-01-31] VITALS (7 sets, daily range): BP systolic 104–132; BP diastolic 43–50
[~2021-01-31] VITALS: Ht 177.8 cm; Wt 82.8 kg
[~2021-01-31 06:35] MED LIST changes: -LIDOcaine 1% 30ml preserv. free vial SQ STA
[2021-01-31] MEDS ORDERED: albumin 25% 100mL bottle x 1 IV PRN (07:00)
[2021-01-31] MEDS ORDERED: normal saline 1000ml 1,000 ML IV PRN (07:00)
[2021-01-31] MEDS ORDERED: LIDOcaine 1% 30ml preserv. free vial SQ STA (07:14)
== END 2021-01-31 09:06 | disposition home or self-care (01) ==
LOC: SSTAY O 06:35
PROVIDERS: ATTEND Preventive Medicine Aerospace Medicine
DX: J90 Pleural effusion, not elsewhere classified (principal); I11.0 Hypertensive heart disease with heart failure; I50.9 Heart failure, unspecified; I48.91 Unspecified atrial fibrillation; E78.5 Hyperlipidemia, unspecified; I35.0 Nonrheumatic aortic (valve) stenosis; Z90.79 Acquired absence of other genital organ(s); Z87.891 Personal history of nicotine dependence; Z79.899 Other long term (current) drug therapy
CPT/HCPCS: 32555; J2001

== ENCOUNTER 2021-02-07 06:41 | Day surgery (SDC) | payer OTHER ==
[~2021-02-07] VITALS: Ht 180.3 cm; Wt 83.9 kg
[~2021-02-07 06:41] MED LIST changes: +LIDOcaine 1% 30ml preserv. free vial SQ STA
[2021-02-07] MEDS ORDERED: LIDOcaine 1% 30ml preserv. free vial SQ STA ×2 (07:13→07:35)
[2021-02-07 07:27] VITALS: BP 125/61
[2021-02-07] MEDS ORDERED: albumin 25% 100mL bottle x 1 IV PRN (07:45)
[2021-02-07 09:30] VITALS: BP 137/88
[2021-02-07 09:44] VITALS: BP 119/40
[2021-02-07 09:55] VITALS: BP 119/40
== END 2021-02-07 10:00 | disposition home or self-care (01) ==
LOC: SSTAY O 06:41
PROVIDERS: ATTEND Radiology Vascular & Interventional Radiology
DX: J90 Pleural effusion, not elsewhere classified (principal); I48.91 Unspecified atrial fibrillation; I11.0 Hypertensive heart disease with heart failure; I50.9 Heart failure, unspecified; E78.5 Hyperlipidemia, unspecified; I35.0 Nonrheumatic aortic (valve) stenosis; Z87.891 Personal history of nicotine dependence; Z79.899 Other long term (current) drug therapy; Z79.01 Long term (current) use of anticoagulants; Z90.79 Acquired absence of other genital organ(s)
CPT/HCPCS: 32555

== ENCOUNTER 2021-02-14 06:37 | Day surgery (SDC) | payer OTHER ==
[~2021-02-14] VITALS: Ht 180.3 cm; Wt 84.1 kg
[~2021-02-14 06:37] MED LIST changes: -LIDOcaine 1% 30ml preserv. free vial SQ STA
[2021-02-14] MEDS ORDERED: LIDOcaine 1% 30ml preserv. free vial SQ STA (06:50)
[2021-02-14] MEDS ORDERED: albumin 25% 100mL bottle x 1 IV PRN (06:55)
[2021-02-14 07:01] VITALS: BP 113/52
[2021-02-14 08:45] VITALS: BP 113/53
[2021-02-14 09:00] VITALS: BP 117/58
[2021-02-14 09:15] VITALS: BP 110/57
[2021-02-14 09:22] VITALS: BP 116/64
[2021-02-14 09:40] VITALS: BP 132/68
== END 2021-02-14 09:40 | disposition home or self-care (01) ==
LOC: SSTAY O 06:37
PROVIDERS: ATTEND Radiology Vascular & Interventional Radiology
DX: J90 Pleural effusion, not elsewhere classified (principal); I48.91 Unspecified atrial fibrillation; I11.0 Hypertensive heart disease with heart failure; I50.9 Heart failure, unspecified; E78.5 Hyperlipidemia, unspecified; I35.0 Nonrheumatic aortic (valve) stenosis; Z90.79 Acquired absence of other genital organ(s); Z87.891 Personal history of nicotine dependence; Z79.899 Other long term (current) drug therapy
CPT/HCPCS: 32555

== ENCOUNTER 2021-02-17 08:33 | Inpatient (IN) | payer OTHER, MEDICARE ==
[~2021-02-17] VITALS: Ht 180.3 cm; Wt 81.0 kg
[2021-02-17 09:15] LABS: BASOPHILS % (AUTO) 0.3 % (0-1); EOSINOPHILS % (AUTO) 0.1 % (0-6); HEMATOCRIT 40.1 % (42.0-52.0); LYMPHOCYTES # (AUTO) 0.4 X10'3 (1.1-4.8); LYMPHOCYTES % (AUTO) 3.8 % (21-51); MEAN CORPUSCULAR HEMOGLOBIN 27.6 PG (27.0-31.0); MEAN CORPUSCULAR HGB CONC 32.5 g/dL (33.0-36.5); MEAN PLATELET VOLUME 7.1 FL (7.4-10.4); MONOCYTES # (AUTO) 0.4 X10'3 (0-0.9); MONOCYTES % (AUTO) 3.6 % (2-12); NEUTROPHILS # (AUTO) 10.3 X10'3 (1.8-7.7); NEUTROPHILS % (AUTO) 92.2 % (42-75); PLATELET COUNT 352 X10'3 (140-440); RED BLOOD COUNT 4.72 X10'6 (4.70-6.10); WHITE BLOOD COUNT 11.2 X10'3 (4.5-11.0)
[2021-02-17] MEDS ORDERED: ondansetron/PF 4mg/2ml inj IV ONE (09:25)
[2021-02-17] MEDS ORDERED: morphine 4 MG/ML inj SYRINge IV ONE (09:25)
[2021-02-17 09:42] LABS: ALANINE AMINOTRANSFERASE 9 U/L (12-78); ALBUMIN 3.5 G/DL (3.4-5.0); ALBUMIN/GLOBULIN RATIO 0.8 (1.1-1.5); ALKALINE PHOSPHATASE 105 IU/L (46-116); ANION GAP 12 (8-16); ASPARTATE AMINO TRANSFERASE 15 U/L (10-37); BILIRUBIN,TOTAL 0.6 MG/DL (0.1-1.0); BLOOD UREA NITROGEN 18 MG/DL (7-18); BUN/CREATININE RATIO 12.7 (5.4-32.0); CHLORIDE 100 MMOL/L (99-107); CREATININE 1.42 MG/DL (0.60-1.10); GLUCOSE 160 MG/DL (70-104); LIPASE 53 U/L (73-393); POTASSIUM 3.6 MMOL/L (3.5-5.1); SODIUM 140 MMOL/L (135-145); TOTAL CARBON DIOXIDE 28.1 MMOL/L (24-32); eGFR 47 ML/MIN
[2021-02-17 09:44] LABS: CLARITY,URINE CLEAR (Clear); COLOR,URINE YELLOW (Yellow); GLUCOSE, URINE NEGATIVE (Neg); KETONES,URINE 15 mg/dl (Neg); LEUKOCYTE ESTERASE ,URINE NEGATIVE (Neg); NITRITES, URINE NEGATIVE (Neg); OCCULT BLOOD,URINE TRACE-INTACT (Neg); PH,URINE 5.5 (4.8-8.0); PROTEIN,URINE TRACE mg/dl (Neg); UROBILINOGEN,URINE 0.2 E.U/dL (0.2-1.0)
[2021-02-17 09:45] LABS: UA COLLECTION TYPE CLN CATCH MIDSTREAM
[2021-02-17 09:47] LABS: CALCIUM 9.9 MG/DL (8.5-10.1)
[2021-02-17 09:55] LABS: HYALINE CASTS 0-3 /LPF (NEGATIVE)
[2021-02-17 09:56] LABS: SQUAMOUS EPITHELIAL CELL,UR FEW /LPF (FEW)
[2021-02-17 09:57] LABS: BACTERIA,URINE FEW /HPF (Neg)
[2021-02-17 09:58] LABS: RBC,URINE 0-2 /HPF (0-2); WBC,URINE 0-4 /HPF (0-4)
--- NOTE | 2021-02-17 09:58 | NUR ---
2mg morphine given at this time,patient no relief from 2mg morphine few minutes ago Dr. Umanzor aware.
[2021-02-17 10:00] LABS: MUCUS STRANDS FEW /LPF (Neg)
[2021-02-17] MEDS ORDERED: LIDOcaine 2% 10ml TOPICAL JELLY (Urojet) MM STA (10:18)
[2021-02-17] MEDS ORDERED: normal saline 1000ml 1,000 ML IV ONE (10:20)
[2021-02-17] MEDS ORDERED: morphine 2 MG/ML inj. syringe IV PRN (10:40)
[2021-02-17] MEDS ORDERED: magnesium hydroxide 30ml (MOM) UD suspension PO PRN (10:40)
[2021-02-17] MEDS ORDERED: ondansetron/PF 4mg/2ml inj IV PRN (10:40)
[2021-02-17] MEDS ORDERED: mag hydrox/Alum hydrox/simeth 30ml oral suspension PO PRN (10:40)
[2021-02-17] MEDS ORDERED: acetaminophen 325mg tablet PO PRN (10:40)
--- NOTE | 2021-02-17 10:58 | NUR ---
ng tube placed to right nare,patient tolerated procedure well,Son at bedside.
[2021-02-17 12:40] VITALS: BP 153/75
[2021-02-17 13:20] VITALS: BP 153/75
[2021-02-17] MEDS ORDERED: CHOL500049 PO (13:29)
[2021-02-17] MEDS: normal saline 1000ml 1,000 ML IV SCH ×2 (13:40→20:40)
[2021-02-17] MEDS: morphine 2 MG/ML inj. syringe IV PRN ×2 (13:41→18:45)
[2021-02-17] MEDS ORDERED: LACT1CAP57 PO (13:55)
[2021-02-17] MEDS ORDERED: non-formulary drug (Cholecalciferol (Vitamin D3) (Vitamin D3) 1 CAP) PO SCH (17:55)
[2021-02-17] MEDS ORDERED: albuterol 2.5 MG/3 ML nebule NEB PRN (17:55)
[2021-02-17 20:00] VITALS: BP 159/81
[2021-02-17] MEDS: ipratropium/albuterol 3ml nebule NEB SCH (20:46)
[2021-02-17] MEDS: docusate sod 100mg capsule PO SCH (21:08)
[2021-02-17] MEDS: atorvastatin 20mg tablet PO SCH (21:08)
[2021-02-18] VITALS: BP 100/76
[2021-02-18 00:12] VITALS: BP 152/77
[2021-02-18] MEDS: morphine 2 MG/ML inj. syringe IV PRN (00:12)
[2021-02-18] MEDS: ipratropium/albuterol 3ml nebule NEB SCH ×4 (02:29→21:19)
[2021-02-18] MEDS: normal saline 1000ml 1,000 ML IV SCH ×2 (03:48→16:30)
--- NOTE | 2021-02-18 04:11 | NUR ---
Pt had small amount of urine output. Bladder was scanned and pt only had 32 ml. Will continue to monitor.
[2021-02-18 06:27] LABS: BASOPHILS % (AUTO) 0.1 % (0-1); EOSINOPHILS % (AUTO) 0 % (0-6); HEMATOCRIT 43.2 % (42.0-52.0); HEMOGLOBIN 14.3 g/dl (14.0-17.9); LYMPHOCYTES # (AUTO) 0.3 X10'3 (1.1-4.8); LYMPHOCYTES % (AUTO) 1.8 % (21-51); MEAN CORPUSCULAR HEMOGLOBIN 27.8 PG (27.0-31.0); MEAN CORPUSCULAR VOLUME 84.3 FL (78-98); MEAN PLATELET VOLUME 7.4 FL (7.4-10.4); MONOCYTES % (AUTO) 5.4 % (2-12); NEUTROPHILS # (AUTO) 16.5 X10'3 (1.8-7.7); NEUTROPHILS % (AUTO) 92.7 % (42-75); PLATELET COUNT 406 X10'3 (140-440); RED BLOOD COUNT 5.12 X10'6 (4.70-6.10); RED CELL DISTRIBUTION WIDTH 18.2 % (11.5-14.5); WHITE BLOOD COUNT 17.8 X10'3 (4.5-11.0)
[2021-02-18 06:36] LABS: ALBUMIN 2.7 G/DL (3.4-5.0); ANION GAP 12 (8-16); BLOOD UREA NITROGEN 26 MG/DL (7-18); CALCIUM 9.1 MG/DL (8.5-10.1); CHLORIDE 103 MMOL/L (99-107); CREATININE 1.73 MG/DL (0.60-1.10); GLUCOSE 149 MG/DL (70-104); SODIUM 140 MMOL/L (135-145); TOTAL CARBON DIOXIDE 24.7 MMOL/L (24-32); eGFR 37 ML/MIN
--- NOTE | 2021-02-18 06:53 | NUR ---
Patient in room CAMI 347. I have received report from JETT WILSON and had the opportunity to ask questions and assume patient care.
--- NOTE | 2021-02-18 07:27 | NUR ---
Problems reprioritized. Patient report given, questions answered & plan of care reviewed with STEVE Park.
[2021-02-18 07:32] VITALS: BP 110/63
[2021-02-18] MEDS: docusate sod 100mg capsule PO SCH ×2 (07:44→20:00)
[2021-02-18] MEDS: lactobacillus rhamnosus 10,000 MMU CELLS/CAPSULE PO SCH (07:44)
[2021-02-18] MEDS: amLODIPine 5mg tablet PO SCH (08:00)
[2021-02-18] MEDS: budesonide 0.5mg/2ml UD nebule IH SCH ×2 (08:49→21:19)
[2021-02-18] MEDS ORDERED: diatr meglu/diatrizoate 30ml oral sol.-(3 dose) bottle PO ONE (10:15)
[2021-02-18 11:00] VITALS: BP 132/73
--- NOTE | 2021-02-18 11:11 | NUR ---
Age screen: Pt admit for SBO, currently NPO with an NG tube in place. Pt historically eats well at previous admits with no texture modification required. No documented edema or wounds. Will continue to follow and make recommendations as appropriate. Addendum: 02/18/21 at [address] Amended: Links added.
[2021-02-18] MEDS ORDERED: diatr meglu/diatrizoate 30ml oral sol.-(3 dose) bottle PO SCH (12:00)
[2021-02-18 18:00] VITALS: BP 149/79
--- NOTE | 2021-02-18 18:19 | NUR ---
Problems reprioritized. Patient report given, questions answered & plan of care reviewed with PRUDENCE RN.
--- NOTE | 2021-02-18 18:41 | NUR ---
Patient in room CAMI 347. I have received report from LAURE WILSON and had the opportunity to ask questions and assume patient care.
[2021-02-18] MEDS: atorvastatin 20mg tablet PO SCH (21:00)
[2021-02-19] VITALS (12 sets, daily range): BP systolic 135–168; BP diastolic 57–85
[2021-02-19] MEDS: normal saline 1000ml 1,000 ML IV SCH ×2 (01:41→12:34)
[2021-02-19 06:05] LABS: BASOPHILS % (AUTO) 0 % (0-1); EOSINOPHILS % (AUTO) 0 % (0-6); HEMATOCRIT 39.6 % (42.0-52.0); LYMPHOCYTES # (AUTO) 0.4 X10'3 (1.1-4.8); LYMPHOCYTES % (AUTO) 2.5 % (21-51); MEAN CORPUSCULAR HEMOGLOBIN 27.6 PG (27.0-31.0); MEAN CORPUSCULAR HGB CONC 32.9 g/dL (33.0-36.5); MEAN CORPUSCULAR VOLUME 83.9 FL (78-98); MEAN PLATELET VOLUME 7.3 FL (7.4-10.4); MONOCYTES # (AUTO) 1.3 X10'3 (0-0.9); MONOCYTES % (AUTO) 8.2 % (2-12); NEUTROPHILS # (AUTO) 13.6 X10'3 (1.8-7.7); NEUTROPHILS % (AUTO) 89.3 % (42-75); PLATELET COUNT 349 X10'3 (140-440); RED BLOOD COUNT 4.72 X10'6 (4.70-6.10); RED CELL DISTRIBUTION WIDTH 18.6 % (11.5-14.5); WHITE BLOOD COUNT 15.2 X10'3 (4.5-11.0)
[2021-02-19 06:29] LABS: ALBUMIN 2.5 G/DL (3.4-5.0); ANION GAP 12 (8-16); BLOOD UREA NITROGEN 43 MG/DL (7-18); BUN/CREATININE RATIO 17.8 (5.4-32.0); CALCIUM 8.9 MG/DL (8.5-10.1); CHLORIDE 105 MMOL/L (99-107); CREATININE 2.41 MG/DL (0.60-1.10); GLUCOSE 128 MG/DL (70-104); POTASSIUM 4.3 MMOL/L (3.5-5.1); SODIUM 142 MMOL/L (135-145); TOTAL CARBON DIOXIDE 24.7 MMOL/L (24-32); eGFR 25 ML/MIN
--- NOTE | 2021-02-19 06:35 | NUR ---
Problems reprioritized. Patient report given, questions answered & plan of care reviewed with MARGARITO WILSON.
[2021-02-19 06:39] LABS: ANISOCYTOSIS 2+; BURR CELLS FEW; PLATELET ESTIMATE NORMAL; TOTAL CELLS COUNTED 100
[2021-02-19] MEDS ORDERED: diatr meglu/diatrizoate 30ml oral sol.-(3 dose) bottle PO ONE ×2 (07:00→07:45)
[2021-02-19] MEDS: lactobacillus rhamnosus 10,000 MMU CELLS/CAPSULE PO SCH (07:28)
[2021-02-19] MEDS: amLODIPine 5mg tablet PO SCH (07:28)
[2021-02-19] MEDS: docusate sod 100mg capsule PO SCH ×2 (07:28→20:00)
[2021-02-19] MEDS ORDERED: docusate sod 100mg capsule PO SCH (08:00)
[2021-02-19] MEDS ORDERED: diatr meglu/diatrizoate 30ml oral sol.-(3 dose) bottle PO SCH (09:00)
[2021-02-19] MEDS: budesonide 0.5mg/2ml UD nebule IH SCH ×2 (09:08→20:00)
[2021-02-19] MEDS: ipratropium/albuterol 3ml nebule NEB SCH ×3 (09:08→21:00)
--- NOTE | 2021-02-19 16:55 | NUR ---
PAGER ID: [phone] MESSAGE: Rosita- [facility] 5421 Re: Javier ZabaalA + Covid please call
--- NOTE | 2021-02-19 16:55 | NUR ---
Texted Dr Padilla patient + Covid, Also Notified Kari WILSON in OR she will speak to Anesthesiologist and get back to us.
[2021-02-19 16:57] LABS: PRE OP INR 1.4 INR; PRE OP PROTIME 14.4 SECONDS (9.0-12.0)
--- NOTE | 2021-02-19 17:30 | NUR ---
Report given to Rina WILSON, all questions answered.
--- NOTE | 2021-02-19 17:38 | NUR ---
PATIENT COVID POS,SURGERY CHARGE AND DR ELLIS AWARE AND OR CHARGE WILL GET BACK TO US ABOUT WHETHER OR NOT SURGERY WILL STILL HAPPEN TONIGHT. SON PAULA AWARE AND PATIENT AWARE, DR HUNAG AWARE.
[2021-02-19] MEDS: ringers solution, lacted 1,000 ML IV SCH (19:15)
[2021-02-19] MEDS ORDERED: ringers solution, lacted 1,000 ML IV ONE (19:15)
--- NOTE | 2021-02-19 19:20 | NUR ---
Patient had only 100-200 urine output today and GFR decrease to 25 on am labs with increase of creatinine. Dr May was aware of changes in kidney function earlier today but I wanted to update hospitalist on urine output as well. I talked to Dr Espinal about concerns for changes and potential dehydration although patient had been running ns @ [address] Espinal has ordered a 200ml/hr maintance fluid after dc'ing ns @ 100 adn wants a one time LR fluid bolus now. Rina RN for NOC shift aware and will bolus now and make fluid changes and monitor output.
--- NOTE | 2021-02-19 19:25 | NUR ---
Patient was also bladder scanned prior to talking to Dr Espinal. Pt had 235 in bladder.
[2021-02-19] MEDS ORDERED: fentaNYL /PF 50mcg/ml 5ml ampule ONE (19:26)
[2021-02-19] MEDS ORDERED: BUPIVACAINE liposomal/PF 13.3 MG/ML vial IM ONE (19:29)
[2021-02-19] MEDS ORDERED: LIDOcaine 1% 30ml preserv. free vial ONE (19:29)
[2021-02-19] MEDS ORDERED: BUPIVAcaine/PF 2.5mg/ml (0.25%) 10ml vial ONE (19:29)
[2021-02-19] MEDS ORDERED: BUPIVAcaine/PF 2.5 mg/ml (0.25%) 30ml vial ONE (19:29)
[2021-02-19] MEDS ORDERED: morphine 2 MG/ML inj. syringe IV PRN (19:45)
[2021-02-19] MEDS ORDERED: HYDROmorphone/PF 0.2 MG/ML SYRINGE IV PRN (19:45)
[2021-02-19] MEDS ORDERED: ringers solution, lacted 1,000 ML IV SCH (19:45)
[2021-02-19] MEDS ORDERED: ondansetron/PF 4mg/2ml inj IV PRN (19:45)
[2021-02-19] MEDS: atorvastatin 20mg tablet PO SCH (21:00)
[2021-02-19] MEDS ORDERED: ondansetron/PF 4mg/2ml inj ONE (21:05)
[2021-02-19] MEDS ORDERED: ceFAZolin 1000mg inj ONE (21:17)
[2021-02-19] MEDS ORDERED: albumin (human) 25% 100ml IV 200 ML IV ONE (21:18)
[2021-02-19] MEDS ORDERED: sevoflurane 250ml liquid IH ONE (21:25)
[2021-02-19] MEDS ORDERED: sugammadex 200mg/2ml injection IV ONE (21:49)
--- NOTE | 2021-02-19 22:00 | NUR ---
Patient back from surgery roomed and post op assessed completed.Pt has mitchell catheter and is on 2L of supplemental O2 per NC. VSS, C/O pain at 9/10.Morphine IV administered .Will continue to monitor.
--- NOTE | 2021-02-19 22:30 | NUR ---
Received from OR via , accompanied by Anesthesiologist and report given by Anesthesiolgist. PATIENT WAKING UP, NO S/S OF PAIN, V/S WNL, SCD ON, 20G TO LUE, SURGICAL SITE [place] DRESSING TO ABDOMEN CDI. F/C DRAINING CLEAR YELLOW URINE. ART LINE
[2021-02-19] MEDS ORDERED: CADD PCA waste documentation MC PRN (22:35)
[2021-02-19] MEDS ORDERED: naloxone 0.4 mg/ml inj IV PRN (22:35)
[2021-02-19] MEDS ORDERED: LIDOcaine 2% (20mg/ml) 5ml vial ONE (22:39)
[2021-02-19] MEDS ORDERED: etomidate 2mg/ml inj. ONE (22:39)
[2021-02-19] MEDS ORDERED: rocuronium 10mg/ml inj IV ONE (22:39)
[2021-02-19] MEDS: HYDROmorph./NS 0.2 mg/ml CADD 100 ML IV SCH ×2 (23:00→23:33)
--- NOTE | 2021-02-19 23:10 | NUR ---
CORRECTION FROM PREVIOUS ENTRY. PATIENT C/O PAIN MORPHINE GIVEN. SIMRAN IS A&OX4.
--- NOTE | 2021-02-19 23:10 | NUR ---
Received from OR via [facility], accompanied by Anesthesiologist and report given by Anesthesiologist. PATIENT WAKING UP, NO S/S OF PAIN, V/S WNL, SCD ON, 20G TO LUE, SURGICAL SITE [place] DRESSING TO ABDOMEN CDI. F/C DRAINING CLEAR YELLOW URINE. ART LINE D/C RUE.PATIENT TAKEN TO ROOM 341 WITH ALL BELONGINGS AND HOOKED UP TO MONITORS IN ROOM AND GIVEN CALL LIGHT, REPORT GIVEN TO RN WHO HAS TAKEN OVER PATIENT CARE.
--- NOTE | 2021-02-19 23:22 | NUR ---
COULD NOT SCAN MORPHINE GIVEN IN OR DUE TO COVID ISO WITH NO ACCESS TO COMPUTER TO SCAN
[2021-02-20] VITALS (13 sets, daily range): BP systolic 115–159; BP diastolic 53–85
[2021-02-20] MEDS: ringers solution, lacted 1,000 ML IV SCH ×2 (00:15→05:15)
[2021-02-20] MEDS: HYDROmorph./NS 0.2 mg/ml CADD 100 ML IV SCH ×12 (01:00→23:00)
[2021-02-20] MEDS: ipratropium/albuterol 3ml nebule NEB SCH ×2 (02:14→09:00)
[2021-02-20 05:52] LABS: ALBUMIN 2.4 G/DL (3.4-5.0); ANION GAP 9 (8-16); BASOPHILS % (AUTO) 0.1 % (0-1); BLOOD UREA NITROGEN 45 MG/DL (7-18); BUN/CREATININE RATIO 21.8 (5.4-32.0); CALCIUM 8.5 MG/DL (8.5-10.1); CHLORIDE 107 MMOL/L (99-107); CREATININE 2.06 MG/DL (0.60-1.10); EOSINOPHILS % (AUTO) 0 % (0-6); GLUCOSE 94 MG/DL (70-104); HEMATOCRIT 35.6 % (42.0-52.0); HEMOGLOBIN 11.7 g/dl (14.0-17.9); LYMPHOCYTES # (AUTO) 0.3 X10'3 (1.1-4.8); LYMPHOCYTES % (AUTO) 4.1 % (21-51); MEAN CORPUSCULAR HEMOGLOBIN 27.6 PG (27.0-31.0); MEAN CORPUSCULAR HGB CONC 32.8 g/dL (33.0-36.5); MEAN CORPUSCULAR VOLUME 84.2 FL (78-98); MEAN PLATELET VOLUME 7.1 FL (7.4-10.4); MONOCYTES # (AUTO) 0.6 X10'3 (0-0.9); MONOCYTES % (AUTO) 7.3 % (2-12); NEUTROPHILS # (AUTO) 7.2 X10'3 (1.8-7.7); NEUTROPHILS % (AUTO) 88.5 % (42-75); PLATELET COUNT 275 X10'3 (140-440); POTASSIUM 3.8 MMOL/L (3.5-5.1); RED BLOOD COUNT 4.23 X10'6 (4.70-6.10); RED CELL DISTRIBUTION WIDTH 18.8 % (11.5-14.5); SODIUM 143 MMOL/L (135-145); TOTAL CARBON DIOXIDE 27.2 MMOL/L (24-32); WHITE BLOOD COUNT 8.1 X10'3 (4.5-11.0); eGFR 31 ML/MIN
[2021-02-20] MEDS: budesonide 0.5mg/2ml UD nebule IH SCH (08:00)
[2021-02-20] MEDS: amLODIPine 5mg tablet PO SCH (08:00)
[2021-02-20] MEDS ORDERED: heparin, porcine 5000 units/ml vial SQ SCH (08:00)
--- NOTE | 2021-02-20 09:29 | NUR ---
COVID PATIENTS ARE TO HAVE MDI ORDER PER PROTOCOL POLICY. PATIENT'S NURSE NOTIFIED THAT SVN TX WAS NOT GIVEN DUE TO COVID PROTOCOL POLICY.
[2021-02-20] MEDS: normal saline 1000ml 1,000 ML IV SCH (09:53)
--- NOTE | 2021-02-20 10:30 | NUR ---
Page sent to RT... Steve Babin: please call regarding this patient. thank you! alexa Addendum: 02/20/21 at 1038 by Alexa Ruiz RN Dr. May said to proceed with COVID protocol orders for RT.
--- NOTE | 2021-02-20 18:19 | NUR ---
Problems reprioritized. Patient report given, questions answered & plan of care reviewed with STEVE Flynn.
--- NOTE | 2021-02-20 19:20 | NUR ---
Report called to June RN.Pt TX to room 4020 B.All questions regarding pt status and care answered and pt made aware pt transfer.
[2021-02-20] MEDS: apixaban 2.5mg tablet PO SCH (20:55)
[2021-02-20] MEDS: atorvastatin 20mg tablet PO SCH (21:00)
[2021-02-21] MEDS: HYDROmorph./NS 0.2 mg/ml CADD 100 ML IV SCH ×12 (01:00→23:00)
[2021-02-21] MEDS: normal saline 1000ml 1,000 ML IV SCH ×2 (01:14→15:00)
[2021-02-21 02:00] VITALS: BP 128/86
[2021-02-21 05:22] VITALS: BP 152/67
[2021-02-21 07:46] LABS: BASOPHILS % (AUTO) 0.1 % (0-1); EOSINOPHILS % (AUTO) 0.3 % (0-6); HEMATOCRIT 37.6 % (42.0-52.0); LYMPHOCYTES # (AUTO) 0.5 X10'3 (1.1-4.8); LYMPHOCYTES % (AUTO) 6.2 % (21-51); MEAN CORPUSCULAR HEMOGLOBIN 27.4 PG (27.0-31.0); MEAN CORPUSCULAR VOLUME 85.6 FL (78-98); MEAN PLATELET VOLUME 7.2 FL (7.4-10.4); MONOCYTES # (AUTO) 0.8 X10'3 (0-0.9); MONOCYTES % (AUTO) 9.8 % (2-12); NEUTROPHILS # (AUTO) 7.1 X10'3 (1.8-7.7); NEUTROPHILS % (AUTO) 83.6 % (42-75); PLATELET COUNT 247 X10'3 (140-440); RED BLOOD COUNT 4.39 X10'6 (4.70-6.10); RED CELL DISTRIBUTION WIDTH 18.3 % (11.5-14.5); WHITE BLOOD COUNT 8.5 X10'3 (4.5-11.0)
[2021-02-21] MEDS: amLODIPine 5mg tablet PO SCH (07:58)
[2021-02-21] MEDS: apixaban 2.5mg tablet PO SCH ×2 (07:58→20:15)
[2021-02-21 08:06] LABS: ALBUMIN 2.3 G/DL (3.4-5.0); ANION GAP 10 (8-16); BLOOD UREA NITROGEN 43 MG/DL (7-18); BUN/CREATININE RATIO 24.2 (5.4-32.0); CALCIUM 8.9 MG/DL (8.5-10.1); CHLORIDE 107 MMOL/L (99-107); CREATININE 1.78 MG/DL (0.60-1.10); GLUCOSE 74 MG/DL (70-104); POTASSIUM 3.8 MMOL/L (3.5-5.1); SODIUM 144 MMOL/L (135-145); eGFR 36 ML/MIN
[2021-02-21 10:27] VITALS: BP 122/55
[2021-02-21 14:00] VITALS: BP 135/51
--- NOTE | 2021-02-21 17:36 | NUR ---
Bladder scan done to verify patient is not retaining due to only urinating once today, bladder scan only showed 161ml.
[2021-02-21 18:00] VITALS: BP 122/49
[2021-02-21] MEDS: atorvastatin 20mg tablet PO SCH (20:15)
[2021-02-21] MEDS: budesonide 0.5mg/2ml UD nebule IH SCH (20:24)
[2021-02-21 22:00] VITALS: BP 127/49
[2021-02-22] MEDS: HYDROmorph./NS 0.2 mg/ml CADD 100 ML IV SCH ×12 (01:00→23:00)
[2021-02-22] MEDS: normal saline 1000ml 1,000 ML IV SCH ×2 (05:08→18:46)
[2021-02-22 06:00] VITALS: BP 111/48
[2021-02-22 07:47] LABS: ANION GAP 11 (8-16); BLOOD UREA NITROGEN 47 MG/DL (7-18); BUN/CREATININE RATIO 28.1 (5.4-32.0); CALCIUM 9.3 MG/DL (8.5-10.1); CHLORIDE 107 MMOL/L (99-107); CREATININE 1.67 MG/DL (0.60-1.10); GLUCOSE 75 MG/DL (70-104); POTASSIUM 3.9 MMOL/L (3.5-5.1); SODIUM 141 MMOL/L (135-145); TOTAL CARBON DIOXIDE 23.2 MMOL/L (24-32); eGFR 39 ML/MIN
[2021-02-22] MEDS: amLODIPine 5mg tablet PO SCH (08:03)
[2021-02-22] MEDS: apixaban 2.5mg tablet PO SCH ×2 (08:03→21:28)
[2021-02-22 08:08] LABS: BASOPHILS % (AUTO) 0.1 % (0-1); EOSINOPHILS % (AUTO) 0.2 % (0-6); HEMATOCRIT 37.8 % (42.0-52.0); HEMOGLOBIN 12.1 g/dl (14.0-17.9); LYMPHOCYTES # (AUTO) 0.5 X10'3 (1.1-4.8); LYMPHOCYTES % (AUTO) 4.2 % (21-51); MEAN CORPUSCULAR HEMOGLOBIN 27.4 PG (27.0-31.0); MEAN CORPUSCULAR HGB CONC 31.9 g/dL (33.0-36.5); MEAN CORPUSCULAR VOLUME 85.8 FL (78-98); MEAN PLATELET VOLUME 7.2 FL (7.4-10.4); MONOCYTES # (AUTO) 1.1 X10'3 (0-0.9); MONOCYTES % (AUTO) 8.8 % (2-12); NEUTROPHILS # (AUTO) 10.7 X10'3 (1.8-7.7); NEUTROPHILS % (AUTO) 86.7 % (42-75); PLATELET COUNT 268 X10'3 (140-440); RED BLOOD COUNT 4.41 X10'6 (4.70-6.10); RED CELL DISTRIBUTION WIDTH 18.1 % (11.5-14.5); WHITE BLOOD COUNT 12.4 X10'3 (4.5-11.0)
[2021-02-22] MEDS: budesonide 0.5mg/2ml UD nebule IH SCH ×2 (08:21→20:59)
[2021-02-22 09:07] LABS: ALBUMIN 2.3 G/DL (3.4-5.0)
[2021-02-22 11:00] VITALS: BP 111/48
[2021-02-22 15:00] VITALS: BP 144/65
--- NOTE | 2021-02-22 15:21 | NUR ---
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 LBM 02/[address] SWEEPER per EMR. Pt remains NPO ice chips and sips of clears only post-op w/ R NG in place -100ml documented yesterday though -1200ml output day prior per I&O. RD d/w RN who reports pt NG 400-500ml output so far this shift. S/p KUB yesterday showing SBO post-op pending MD note regarding KUB results today. Pt day 5 no nutrition; if continues to be NPO would benefit from TPN to meet nutrition needs post-op; PN recs below using IBW pending scaled wt this admit. Will continue to monitor for additional nutrition intervention needs this admit. Rec: 1. advance diet as medically indicated to low-residue post-op 2. IF prolonged NPO at least 7 days consider TPN to meet nutrition needs post-op. IF TPN 2:1 Clinimix E 5/20 at 90ml/hr goal w/ separate 250ml 20% intralipids to run at 20.83ml/hr for 12 hours Tues/Fri. In total; to provide 2160ml volume/day, 108g AA, 432g DEX (3.70mg/kg/min), and avg 2044 kcals/day. 3. IF PN; TG/PALB Q /; daily wts 4. scaled wt this admit; subsequent weekly wts Addendum: 02/22/21 at [address] Amended: Links added.
[2021-02-22 18:00] VITALS: BP 142/57
[2021-02-22] MEDS: atorvastatin 20mg tablet PO SCH (21:28)
[2021-02-22 21:30] VITALS: BP 134/58
--- NOTE | 2021-02-22 21:45 | NUR ---
stopped suction for medication absorbtion
--- NOTE | 2021-02-22 23:59 | NUR ---
restarted suction. noted dark brown/maroon color with flecks. Dr. Padilla aware of color as he was here with patient at 1999. no change in color since then. no flatus yet
[2021-02-23] MEDS: HYDROmorph./NS 0.2 mg/ml CADD 100 ML IV SCH ×12 (01:00→23:00)
[2021-02-23 02:10] VITALS: BP 144/35
[2021-02-23 06:00] VITALS: BP 138/48
--- NOTE | 2021-02-23 06:29 | NUR ---
reported to days. noted pt resting w/o distress. call light and cadd button in reach. no flatus yet. NG suction intact.
[2021-02-23] MEDS: amLODIPine 5mg tablet PO SCH (07:14)
[2021-02-23] MEDS: apixaban 2.5mg tablet PO SCH ×2 (07:14→20:02)
[2021-02-23 07:48] LABS: BASOPHILS % (AUTO) 0.1 % (0-1); EOSINOPHILS # (AUTO) 0.1 X10'3 (0-0.9); EOSINOPHILS % (AUTO) 0.4 % (0-6); HEMATOCRIT 39.6 % (42.0-52.0); HEMOGLOBIN 12.7 g/dl (14.0-17.9); LYMPHOCYTES # (AUTO) 0.4 X10'3 (1.1-4.8); LYMPHOCYTES % (AUTO) 2.9 % (21-51); MEAN CORPUSCULAR HEMOGLOBIN 27.3 PG (27.0-31.0); MEAN CORPUSCULAR VOLUME 85.1 FL (78-98); MEAN PLATELET VOLUME 7.4 FL (7.4-10.4); MONOCYTES # (AUTO) 1.1 X10'3 (0-0.9); MONOCYTES % (AUTO) 6.8 % (2-12); NEUTROPHILS % (AUTO) 89.8 % (42-75); PLATELET COUNT 267 X10'3 (140-440); RED BLOOD COUNT 4.65 X10'6 (4.70-6.10); RED CELL DISTRIBUTION WIDTH 18.6 % (11.5-14.5); WHITE BLOOD COUNT 15.5 X10'3 (4.5-11.0)
[2021-02-23 08:34] LABS: ALANINE AMINOTRANSFERASE 7 U/L (12-78); ALBUMIN 2.1 G/DL (3.4-5.0); ALBUMIN/GLOBULIN RATIO 0.5 (1.1-1.5); ALKALINE PHOSPHATASE 78 IU/L (46-116); ANION GAP 14 (8-16); BILIRUBIN,TOTAL 0.8 MG/DL (0.1-1.0); BLOOD UREA NITROGEN 47 MG/DL (7-18); BUN/CREATININE RATIO 30.5 (5.4-32.0); CALCIUM 9.4 MG/DL (8.5-10.1); CHLORIDE 107 MMOL/L (99-107); CREATININE 1.54 MG/DL (0.60-1.10); GLUCOSE 82 MG/DL (70-104); MAGNESIUM 2.8 MG/DL (1.5-2.4); SODIUM 145 MMOL/L (135-145); TOTAL CARBON DIOXIDE 24.2 MMOL/L (24-32); TOTAL PROTEIN 6.1 G/DL (6.4-8.2); eGFR 43 ML/MIN
[2021-02-23 08:35] LABS: ASPARTATE AMINO TRANSFERASE 29 U/L (10-37); LACTATE DEHYDROGENASE 391 U/L (85-227); PHOSPHORUS 2.8 MG/DL (2.3-4.5); POTASSIUM 3.9 MMOL/L (3.5-5.1)
[2021-02-23] MEDS: budesonide 0.5mg/2ml UD nebule IH SCH ×2 (08:37→21:12)
[2021-02-23 08:54] LABS: C-REACTIVE PROTEIN 33.35 MG/DL (0.0-0.5)
[2021-02-23 09:03] LABS: D-DIMER 5.89 MG/L FEU (0-0.50)
[2021-02-23 09:22] LABS: ANISOCYTOSIS 2+; BURR CELLS 1+; PLATELET ESTIMATE NORMAL; SCHISTOCYTES FEW
[2021-02-23] MEDS: normal saline 1000ml 1,000 ML IV SCH ×2 (09:33→22:25)
[2021-02-23] MEDS ORDERED: dexamethasone 4mg/ml inj IV SCH (09:40)
[2021-02-23] MEDS ORDERED: dexamethasone 6 MG/D5W 100ml IV.soln (total 101.5ml) IV SCH ×2 (10:00)
[2021-02-23] MEDS: dexamethasone inj 6 MG in normal saline 50ml IV soln 50 ML IV SCH ×2 (10:30→20:03)
[2021-02-23 11:00] VITALS: BP 126/63
[2021-02-23] MEDS ORDERED: iohexol 350MG/ML 100ml bottle IV ONE (11:26)
[2021-02-23 15:00] VITALS: BP 136/48
[2021-02-23 18:00] VITALS: BP 113/61
--- NOTE | 2021-02-23 18:17 | NUR ---
Patient in room ORTHO 4020. I have received report from Singh WILSON and had the opportunity to ask questions and assume patient care.
[2021-02-23] MEDS: atorvastatin 20mg tablet PO SCH (20:02)
[2021-02-23 22:00] VITALS: BP 100/50
[2021-02-24] MEDS: HYDROmorph./NS 0.2 mg/ml CADD 100 ML IV SCH ×7 (01:00→13:00)
[2021-02-24 02:00] VITALS: BP 145/61
[2021-02-24 06:00] VITALS: BP 122/55
--- NOTE | 2021-02-24 06:28 | NUR ---
Problems reprioritized. Patient report given, questions answered & plan of care reviewed with Jennifer WILSON.
[2021-02-24] MEDS: furosemide 20 MG/2 ML vial IV SCH (07:35)
[2021-02-24] MEDS: amLODIPine 5mg tablet PO SCH (07:35)
[2021-02-24] MEDS: dexamethasone inj 6 MG in normal saline 50ml IV soln 50 ML IV SCH ×2 (07:36→21:31)
[2021-02-24] MEDS: apixaban 2.5mg tablet PO SCH (08:00)
[2021-02-24] MEDS: budesonide 0.5mg/2ml UD nebule IH SCH ×2 (08:02→21:01)
[2021-02-24 09:00] VITALS: BP 127/53
[2021-02-24 09:11] LABS: BASOPHILS % (AUTO) 0 % (0-1); EOSINOPHILS % (AUTO) 0 % (0-6); HEMATOCRIT 41.2 % (42.0-52.0); LYMPHOCYTES # (AUTO) 0.4 X10'3 (1.1-4.8); LYMPHOCYTES % (AUTO) 2.4 % (21-51); MEAN CORPUSCULAR HEMOGLOBIN 27.2 PG (27.0-31.0); MEAN CORPUSCULAR HGB CONC 31.5 g/dL (33.0-36.5); MEAN CORPUSCULAR VOLUME 86.4 FL (78-98); MEAN PLATELET VOLUME 7.3 FL (7.4-10.4); MONOCYTES # (AUTO) 0.4 X10'3 (0-0.9); MONOCYTES % (AUTO) 2.6 % (2-12); NEUTROPHILS # (AUTO) 14.6 X10'3 (1.8-7.7); PLATELET COUNT 279 X10'3 (140-440); RED BLOOD COUNT 4.77 X10'6 (4.70-6.10); RED CELL DISTRIBUTION WIDTH 18.4 % (11.5-14.5); WHITE BLOOD COUNT 15.4 X10'3 (4.5-11.0)
--- NOTE | 2021-02-24 09:26 | NUR ---
PAGER ID: [phone] MESSAGE: Jimena [phone] RE: Pete Herrera rm 4020A. Is pt getting a thoracentesis today? He hasn't had one since 02/14 and he gets them weekly.
[2021-02-24 09:28] LABS: D-DIMER 6.61 MG/L FEU (0-0.50)
[2021-02-24 09:56] LABS: ALANINE AMINOTRANSFERASE 6 U/L (12-78); ALBUMIN 2.2 G/DL (3.4-5.0); ALBUMIN/GLOBULIN RATIO 0.6 (1.1-1.5); ALKALINE PHOSPHATASE 80 IU/L (46-116); ANION GAP 17 (8-16); ASPARTATE AMINO TRANSFERASE 24 U/L (10-37); BILIRUBIN,TOTAL 0.8 MG/DL (0.1-1.0); BLOOD UREA NITROGEN 54 MG/DL (7-18); BUN/CREATININE RATIO 32.7 (5.4-32.0); CALCIUM 9.4 MG/DL (8.5-10.1); CHLORIDE 105 MMOL/L (99-107); CREATININE 1.65 MG/DL (0.60-1.10); GLUCOSE 141 MG/DL (70-104); LACTATE DEHYDROGENASE 246 U/L (85-227); MAGNESIUM 2.6 MG/DL (1.5-2.4); PHOSPHORUS 2.8 MG/DL (2.3-4.5); POTASSIUM 3.5 MMOL/L (3.5-5.1); SODIUM 144 MMOL/L (135-145); TOTAL CARBON DIOXIDE 22.5 MMOL/L (24-32); TOTAL PROTEIN 6.2 G/DL (6.4-8.2); eGFR 39 ML/MIN
[2021-02-24 10:29] LABS: C-REACTIVE PROTEIN 25.38 MG/DL (0.0-0.5)
--- NOTE | 2021-02-24 11:32 | NUR ---
PAGER ID: [phone] MESSAGE: Jimena [phone] RE: Pete Herrera. Pt is requesting a thoracentesis.
--- NOTE | 2021-02-24 12:28 | NUR ---
PAGER ID: [phone] MESSAGE: Jimena [phone] debbie Herrera. Held am dose of Eliquis in case of thoracentesis today. Should I give?
[2021-02-24 14:00] VITALS: BP 123/58
--- NOTE | 2021-02-24 15:36 | NUR ---
PAGER ID: [phone] MESSAGE: Jimena [phone] re Pete Herrera 4020A. Do I hold pt's Eliquis for pt's thoracentesis on Saturday or give it?
[2021-02-24] MEDS ORDERED: normal saline 250ml IV soln 250 ML IV ONE (15:45)
--- NOTE | 2021-02-24 16:17 | NUR ---
Reassessment: Pt advanced to clear liquids today w/ R NG removed yesterday per RN. PO 75-100% first two clear liquid meals not meeting needs given restrictive diet. LBM 02/16 w/ pt passing gas today per RN. RD d/w RN if pt to remain on insufficient diet post-op would benefit from TPN to optimize nutrition status. RN reports pt good appetite and likely to eat well if diet advances. Given severe weakness, BUE +2 edema, and no nutrition intake 7 days pt meets severe malnutrition criteria; MD notified. Will continue to monitor for further nutrition intervention needs this admit. Rec: 1. advance diet as medically indicated to low-residue post-op 2. monitor for diet advancement and ONS needs 3. IF prolonged insufficient diet without GI function return; consider TPN to meet nutrition needs post-op. IF TPN 2:1 Clinimix E 5/20 at 90ml/hr goal w/ separate 250ml 20% intralipids to run at 20.83ml/hr for 12 hours Tues/Fri. In total; to provide 2160ml volume/day, 108g AA, 432g DEX (3.70mg/kg/min), and avg 2044 kcals/day. 4. bowel care per MD post-op 5. scaled wt this admit; subsequent weekly wts Addendum: 02/24/21 at [address] Amended: Links added.
[2021-02-24 18:00] VITALS: BP 122/51
[2021-02-24] MEDS: atorvastatin 20mg tablet PO SCH (21:31)
[2021-02-24 22:00] VITALS: BP 132/59
[2021-02-25 02:00] VITALS: BP 116/54
[2021-02-25 06:00] VITALS: BP 116/56
--- NOTE | 2021-02-25 06:48 | NUR ---
Patient in room ORTHO 4020. I have received report from Joseline WILSON and had the opportunity to ask questions and assume patient care.
[2021-02-25] MEDS: budesonide 0.5mg/2ml UD nebule IH SCH ×2 (08:05→20:36)
[2021-02-25] MEDS: amLODIPine 5mg tablet PO SCH (08:09)
[2021-02-25] MEDS: furosemide 20 MG/2 ML vial IV SCH (08:10)
[2021-02-25] MEDS: dexamethasone inj 6 MG in normal saline 50ml IV soln 50 ML IV SCH ×2 (08:10→20:00)
[2021-02-25 08:29] LABS: BASOPHILS % (AUTO) 0 % (0-1); EOSINOPHILS % (AUTO) 0 % (0-6); HEMATOCRIT 35.2 % (42.0-52.0); HEMOGLOBIN 11.4 g/dl (14.0-17.9); LYMPHOCYTES # (AUTO) 0.3 X10'3 (1.1-4.8); LYMPHOCYTES % (AUTO) 1.8 % (21-51); MEAN CORPUSCULAR HEMOGLOBIN 27.1 PG (27.0-31.0); MEAN CORPUSCULAR HGB CONC 32.4 g/dL (33.0-36.5); MEAN CORPUSCULAR VOLUME 83.6 FL (78-98); MONOCYTES # (AUTO) 0.5 X10'3 (0-0.9); MONOCYTES % (AUTO) 3.2 % (2-12); NEUTROPHILS # (AUTO) 14.4 X10'3 (1.8-7.7); PLATELET COUNT 294 X10'3 (140-440); RED BLOOD COUNT 4.21 X10'6 (4.70-6.10); RED CELL DISTRIBUTION WIDTH 18.3 % (11.5-14.5); WHITE BLOOD COUNT 15.2 X10'3 (4.5-11.0)
[2021-02-25 08:38] LABS: D-DIMER 4.26 MG/L FEU (0-0.50)
[2021-02-25 08:51] LABS: ALANINE AMINOTRANSFERASE 10 U/L (12-78); ALBUMIN/GLOBULIN RATIO 0.6 (1.1-1.5); ALKALINE PHOSPHATASE 64 IU/L (46-116); ANION GAP 8 (8-16); ASPARTATE AMINO TRANSFERASE 19 U/L (10-37); BILIRUBIN,TOTAL 0.5 MG/DL (0.1-1.0); BLOOD UREA NITROGEN 48 MG/DL (7-18); BUN/CREATININE RATIO 31.4 (5.4-32.0); C-REACTIVE PROTEIN 11.08 MG/DL (0.0-0.5); CALCIUM 8.9 MG/DL (8.5-10.1); CHLORIDE 104 MMOL/L (99-107); CREATININE 1.53 MG/DL (0.60-1.10); GLUCOSE 138 MG/DL (70-104); LACTATE DEHYDROGENASE 173 U/L (85-227); MAGNESIUM 2.3 MG/DL (1.5-2.4); PHOSPHORUS 2.5 MG/DL (2.3-4.5); POTASSIUM 3.3 MMOL/L (3.5-5.1); SODIUM 141 MMOL/L (135-145); TOTAL CARBON DIOXIDE 29.3 MMOL/L (24-32); TOTAL PROTEIN 5.4 G/DL (6.4-8.2); eGFR 43 ML/MIN
[2021-02-25 11:00] VITALS: BP 119/50
[2021-02-25 14:00] VITALS: BP 117/54
[2021-02-25] MEDS ORDERED: potassium Cl 20 mEq SR tablet PO PRN (17:00)
[2021-02-25] MEDS: potassium Cl 20 mEq SR tablet PO PRN ×2 (17:30→21:09)
[2021-02-25 18:00] VITALS: BP 109/54
[2021-02-25] MEDS: atorvastatin 20mg tablet PO SCH (21:09)
[2021-02-25] MEDS: benzocaine/menthol oral lozeng 1 EACH BOX MM PRN (21:52)
[2021-02-25] MEDS: normal saline 1000ml 1,000 ML IV SCH (21:53)
[2021-02-25 22:00] VITALS: BP 108/50
[2021-02-26 02:00] VITALS: BP 113/59
[2021-02-26] MEDS: potassium Cl 20 mEq SR tablet PO PRN (02:06)
[2021-02-26] MEDS: benzocaine/menthol oral lozeng 1 EACH BOX MM PRN (02:14)
[2021-02-26] MEDS: morphine 2 MG/ML inj. syringe IV PRN (05:52)
[2021-02-26 06:00] VITALS: BP 130/48
--- NOTE | 2021-02-26 06:50 | NUR ---
Patient in room ORTHO 4020. I have received report from Joseline WILSON and had the opportunity to ask questions and assume patient care.
[2021-02-26 07:51] LABS: BASOPHILS % (AUTO) 0 % (0-1); EOSINOPHILS % (AUTO) 0 % (0-6); HEMOGLOBIN 11.6 g/dl (14.0-17.9); LYMPHOCYTES # (AUTO) 0.3 X10'3 (1.1-4.8); LYMPHOCYTES % (AUTO) 2.1 % (21-51); MEAN CORPUSCULAR HEMOGLOBIN 27.4 PG (27.0-31.0); MEAN CORPUSCULAR HGB CONC 33.1 g/dL (33.0-36.5); MEAN CORPUSCULAR VOLUME 82.9 FL (78-98); MEAN PLATELET VOLUME 7.1 FL (7.4-10.4); MONOCYTES # (AUTO) 0.3 X10'3 (0-0.9); MONOCYTES % (AUTO) 2.7 % (2-12); NEUTROPHILS # (AUTO) 12.3 X10'3 (1.8-7.7); NEUTROPHILS % (AUTO) 95.2 % (42-75); PLATELET COUNT 289 X10'3 (140-440); RED BLOOD COUNT 4.22 X10'6 (4.70-6.10); RED CELL DISTRIBUTION WIDTH 18.2 % (11.5-14.5); WHITE BLOOD COUNT 12.9 X10'3 (4.5-11.0)
[2021-02-26 07:58] LABS: D-DIMER 5.27 MG/L FEU (0-0.50)
[2021-02-26 08:04] LABS: ALBUMIN 2.1 G/DL (3.4-5.0); ALBUMIN/GLOBULIN RATIO 0.7 (1.1-1.5); ALKALINE PHOSPHATASE 66 IU/L (46-116); ANION GAP 7 (8-16); ASPARTATE AMINO TRANSFERASE 12 U/L (10-37); BILIRUBIN,TOTAL 0.5 MG/DL (0.1-1.0); BLOOD UREA NITROGEN 44 MG/DL (7-18); BUN/CREATININE RATIO 29.5 (5.4-32.0); CALCIUM 9.2 MG/DL (8.5-10.1); CHLORIDE 101 MMOL/L (99-107); CREATININE 1.49 MG/DL (0.60-1.10); GLUCOSE 130 MG/DL (70-104); LACTATE DEHYDROGENASE 214 U/L (85-227); MAGNESIUM 2.3 MG/DL (1.5-2.4); PHOSPHORUS 2.3 MG/DL (2.3-4.5); POTASSIUM 3.9 MMOL/L (3.5-5.1); SODIUM 137 MMOL/L (135-145); TOTAL CARBON DIOXIDE 28.9 MMOL/L (24-32); TOTAL PROTEIN 5.3 G/DL (6.4-8.2); eGFR 44 ML/MIN
[2021-02-26 08:07] LABS: ALANINE AMINOTRANSFERASE < 6 U/L (12-78)
[2021-02-26] MEDS: budesonide 0.5mg/2ml UD nebule IH SCH ×2 (08:45→19:32)
[2021-02-26] MEDS: amLODIPine 5mg tablet PO SCH (09:55)
[2021-02-26] MEDS: dexamethasone inj 6 MG in normal saline 50ml IV soln 50 ML IV SCH ×2 (09:55→19:55)
[2021-02-26] MEDS: furosemide 20 MG/2 ML vial IV SCH (09:56)
[2021-02-26 10:00] VITALS: BP 129/57
--- NOTE | 2021-02-26 10:50 | NUR ---
received report from melly diego
--- NOTE | 2021-02-26 11:30 | NUR ---
Problems reprioritized. Patient report given, questions answered & plan of care reviewed with Anita WILSON.
--- NOTE | 2021-02-26 12:22 | NUR ---
i agree with previous nurses physical assessment
[2021-02-26 14:00] VITALS: BP 109/52
[2021-02-26] MEDS: normal saline 1000ml 1,000 ML IV SCH (17:31)
[2021-02-26 18:00] VITALS: BP 127/49
--- NOTE | 2021-02-26 18:09 | NUR ---
GAVE REPORT TO STEVE JAMA
--- NOTE | 2021-02-26 19:52 | NUR ---
Patient in room ORTHO 4020. I have received report from KIKO WLISON AT 1800 and had the opportunity to ask questions and assume patient care.
[2021-02-26] MEDS: atorvastatin 20mg tablet PO SCH (19:55)
[2021-02-26] MEDS ORDERED: ALBUTEROL INHALER 1 PUFF/90 MCG INHALER IH PRN (20:20)
[2021-02-26 22:00] VITALS: BP 132/48
[2021-02-27 02:11] VITALS: BP 134/59
[2021-02-27] MEDS: morphine 2 MG/ML inj. syringe IV PRN (05:33)
[2021-02-27 06:00] VITALS: BP 142/55
--- NOTE | 2021-02-27 06:15 | NUR ---
received report from melly harry
--- NOTE | 2021-02-27 06:40 | NUR ---
Problems reprioritized. Patient report given, questions answered & plan of care reviewed with KIKO WILSON.
[2021-02-27 07:09] LABS: BASOPHILS % (AUTO) 0.2 % (0-1); EOSINOPHILS % (AUTO) 0 % (0-6); HEMATOCRIT 36.7 % (42.0-52.0); LYMPHOCYTES # (AUTO) 0.3 X10'3 (1.1-4.8); LYMPHOCYTES % (AUTO) 1.5 % (21-51); MEAN CORPUSCULAR HEMOGLOBIN 27.3 PG (27.0-31.0); MEAN CORPUSCULAR HGB CONC 32.8 g/dL (33.0-36.5); MEAN CORPUSCULAR VOLUME 83.3 FL (78-98); MEAN PLATELET VOLUME 7.3 FL (7.4-10.4); MONOCYTES # (AUTO) 0.5 X10'3 (0-0.9); NEUTROPHILS # (AUTO) 17.4 X10'3 (1.8-7.7); NEUTROPHILS % (AUTO) 95.3 % (42-75); PLATELET COUNT 277 X10'3 (140-440); RED CELL DISTRIBUTION WIDTH 17.9 % (11.5-14.5); WHITE BLOOD COUNT 18.3 X10'3 (4.5-11.0)
[2021-02-27 07:28] LABS: D-DIMER 8.63 MG/L FEU (0-0.50)
[2021-02-27] MEDS: furosemide 20 MG/2 ML vial IV SCH (07:38)
[2021-02-27] MEDS: dexamethasone inj 6 MG in normal saline 50ml IV soln 50 ML IV SCH ×2 (07:39→20:19)
[2021-02-27 08:00] LABS: ALANINE AMINOTRANSFERASE 11 U/L (12-78); ALBUMIN 2.3 G/DL (3.4-5.0); ALBUMIN/GLOBULIN RATIO 0.7 (1.1-1.5); ALKALINE PHOSPHATASE 71 IU/L (46-116); ANION GAP 8 (8-16); ASPARTATE AMINO TRANSFERASE 19 U/L (10-37); BILIRUBIN,TOTAL 0.6 MG/DL (0.1-1.0); BLOOD UREA NITROGEN 41 MG/DL (7-18); BUN/CREATININE RATIO 29.7 (5.4-32.0); C-REACTIVE PROTEIN 3.77 MG/DL (0.0-0.5); CALCIUM 9.4 MG/DL (8.5-10.1); CHLORIDE 101 MMOL/L (99-107); CREATININE 1.38 MG/DL (0.60-1.10); GLUCOSE 123 MG/DL (70-104); LACTATE DEHYDROGENASE 216 U/L (85-227); MAGNESIUM 2.2 MG/DL (1.5-2.4); PHOSPHORUS 2.3 MG/DL (2.3-4.5); POTASSIUM 3.9 MMOL/L (3.5-5.1); SODIUM 136 MMOL/L (135-145); TOTAL CARBON DIOXIDE 27.1 MMOL/L (24-32); TOTAL PROTEIN 5.7 G/DL (6.4-8.2); eGFR 49 ML/MIN
[2021-02-27] MEDS: amLODIPine 5mg tablet PO SCH (08:42)
[2021-02-27] MEDS: budesonide 0.5mg/2ml UD nebule IH SCH ×2 (09:36→18:58)
[2021-02-27 10:00] VITALS: BP 139/49
--- NOTE | 2021-02-27 10:11 | NUR ---
last recorded bm in i and 0 is 02/25 but a bm for 02/26 has been recorded on physical assessment
[2021-02-27] MEDS ORDERED: LIDOcaine 1% 30ml preserv. free vial IJ STA (10:56)
--- NOTE | 2021-02-27 13:05 | NUR ---
IR team to bedside in room 4020A. Patient consented for thoracentesis. Vital signs obtained. BP 123/95, HR 60, RR 22 SpO2 97% on 2 lpm NC. US imaging obtained. Per IR MD, not enough fluid for safe procedure. Reported off to primary RN.
[2021-02-27 14:00] VITALS: BP 123/65
--- NOTE | 2021-02-27 14:23 | NUR ---
F/u 02/27: Pt remains on clear liquids 3 days PO 0-25% avg meals. Small/smear BM's noted past 2.5 days first this admit per EMR. Pt advanced to full liquids today per MD pending PO hx. Given 10 days essentially no nutrition this admit; RD notified MD recommends Ensure Enlive TIDWM to optimize nutrition status. Will continue to monitor for further nutrition intervention needs this admit. Rec: 1. Continue full liquids diet per MD; advance diet as medically indicated to low-residue post-op; encourage PO 2. Ensure Enlive TIDWM; pending MD verification in EMR 3. IF prolonged restrictive/insufficient diet vs inadequate oral intake w/ functional gut; consider supplemental EN to to optimize nutrition status post-op. Day 10 no adequate nutrition. 4. routine bowel care per MD 5. scaled wt this admit; subsequent weekly wts Addendum: 02/27/21 at [address] Amended: Links added.
[2021-02-27 18:00] VITALS: BP 132/59
[2021-02-27] MEDS: lactose-reduced food (Ensure Enlive) - 237ml bottle PO SCH (18:00)
--- NOTE | 2021-02-27 18:21 | NUR ---
gave report to melly soriano
[2021-02-27] MEDS: atorvastatin 20mg tablet PO SCH (20:19)
[2021-02-27] MEDS: apixaban 2.5mg tablet PO SCH (20:19)
[2021-02-27] MEDS: benzocaine/menthol oral lozeng 1 EACH BOX MM PRN (20:28)
[2021-02-27 22:00] VITALS: BP 125/57
[2021-02-28 01:49] VITALS: BP 132/61
[2021-02-28] MEDS: morphine 2 MG/ML inj. syringe IV PRN (05:18)
[2021-02-28 06:00] VITALS: BP 136/64
--- NOTE | 2021-02-28 06:11 | NUR ---
PT C/O "CAN'T BREATHE" O2 WAS LOW 80'S ON 2L. TURNED UP 02 BUT SPO2 WENT DOWN TO 70'S. LASTED ABOUT 5 MIN. MAD PT COUGH WHICH ARE WET. AND SUDDENLY SP02 STARTED TO COME UP TO 90'S. TURN DOWN O2 TO 2L AND PT IS MAINTAINING SPO2 OF OVER 90% NOW.
--- NOTE | 2021-02-28 06:20 | NUR ---
received report from melly soriano
--- NOTE | 2021-02-28 06:21 | NUR ---
Problems reprioritized. Patient report given, questions answered & plan of care reviewed with STEVE HOOVER.
[2021-02-28] MEDS: apixaban 2.5mg tablet PO SCH ×2 (07:29→19:26)
[2021-02-28] MEDS: furosemide 20 MG/2 ML vial IV SCH (07:29)
[2021-02-28] MEDS: amLODIPine 5mg tablet PO SCH (07:29)
[2021-02-28] MEDS: dexamethasone inj 6 MG in normal saline 50ml IV soln 50 ML IV SCH ×2 (07:29→19:26)
[2021-02-28] MEDS: normal saline 1000ml 1,000 ML IV SCH (07:33)
--- NOTE | 2021-02-28 07:45 | NUR ---
Gonzalez Consult: Pt Gonzalez 10 w/ abdomen surgical wound present otherwise skin intact. Nutrition recs below given wound healing needs. Pt s/p episode of desaturation this AM pending JAR CAPPER BSS recs per EMR. Ensure Enlive ONS pending verification in EMR. Will monitor for additional wound healing needs post-op. Addendum: 02/28/21 at [address] Amended: Links added.
[2021-02-28] MEDS: budesonide 0.5mg/2ml UD nebule IH SCH ×2 (08:37→19:15)
[2021-02-28] MEDS: ALBUTEROL INHALER 1 PUFF/90 MCG INHALER IH PRN ×2 (08:38→19:16)
[2021-02-28 10:00] VITALS: BP 135/58
--- NOTE | 2021-02-28 13:57 | NUR ---
WOUND INFECTION EDUCATION PROVIDED BY WOUND CARE 1. Patient instructed to call their primary doctor, or go the ED immediately if any of the following symptoms occur: * Increased pain in wound * Increase in drainage from the wound * Redness in the skin surrounding the wound * Warmth in the skin surrounding the wound * Bleeding from the wound * Temperature of 101 or greater 2. If any of these occur while in the hospital tell a nurse immediately. PRESSURE ULCER EDUCATION: DEFINITION: A pressure ulcer is an area of skin that breaks down when you stay in one position too long. The constant pressure against the skin reduces the blood flow to that area and the affected tissue dies. CAUSES: "Being bedridden or in a wheelchair "Fragile skin "Having a chronic condition, such as diabetes or vascular disease "Inability to move certain parts of your body without assistance "Older age "Incontinence of urine or stool SYMPTOMS: "A reddened area that DOES NOT turn white when pressed on - this can be the beginning of a pressure ulcer "A blister, deep sore or a crater - these can be advanced pressure ulcers FIRST AID: "Relieve the pressure on this area "Keep the area clean and dry "Call your primary doctor if you see any of the above symptoms "DO NOT massage the area "DO NOT use a donut shaped or ring shaped pillow- these actually interfere with the blood flow and cause complications PREVENTION: "Check for pressure ulcers everyday "Change position at least every two hours to relieve pressure "Use items that help relieve pressure- pillows, sheepskin, foam padding, and powders. "Keep skin clean and dry "Eat healthy well balanced meals "Exercise daily IF YOU SEE ANY OF THESE SYMPTOMS WHILE IN THE HOSPITAL - TELL YOUR NURSE IMMEDIATELY. IF YOU SEE ANY OF THESE SYMPTOMS WHILE AT HOME OR HAVE ANY QUESTIONS OR CONCERNS ABOUT PRESSURE ULCERS - CALL YOUR PRIMARY DOCTOR IMMEDIATELY. Addendum: 02/28/21 at 1357 by Ysabel Dubose RN Amended: Links added.
[2021-02-28 14:00] VITALS: BP 111/56
[2021-02-28 18:00] VITALS: BP 137/56
--- NOTE | 2021-02-28 18:14 | NUR ---
gave report to melly soriano
--- NOTE | 2021-02-28 18:18 | NUR ---
Patient in room ORTHO 4020. I have received report from STEVE HOOVER and had the opportunity to ask questions and assume patient care.
[2021-02-28] MEDS: atorvastatin 20mg tablet PO SCH (19:26)
[2021-02-28 21:58] VITALS: BP 109/50
[2021-03-01 02:00] VITALS: BP 132/58
--- NOTE | 2021-03-01 06:27 | NUR ---
Problems reprioritized. Patient report given, questions answered & plan of care reviewed with STEVE KING.
--- NOTE | 2021-03-01 06:38 | NUR ---
Patient in room ORTHO 4020. I have received report from Zoey WILSON and had the opportunity to ask questions and assume patient care.
[2021-03-01 06:42] VITALS: BP 122/52
[2021-03-01] MEDS: amLODIPine 5mg tablet PO SCH (07:37)
[2021-03-01] MEDS: dexamethasone inj 6 MG in normal saline 50ml IV soln 50 ML IV SCH ×2 (07:37→22:18)
[2021-03-01] MEDS: furosemide 20 MG/2 ML vial IV SCH (07:37)
[2021-03-01] MEDS: apixaban 2.5mg tablet PO SCH ×2 (07:37→20:49)
[2021-03-01] MEDS: budesonide 0.5mg/2ml UD nebule IH SCH ×2 (08:29→19:37)
--- NOTE | 2021-03-01 08:58 | NUR ---
Pt stated to this RT that he has been using his albuterol MDI q4 hours. RN also unaware and it has not been getting documented. I spoke with the Ortho/Neuro broker in charge and she will speak with this pt's RN so we can coordinated charting when pt is taking the DI for SOB/wheezing. Also, I see that he is now out of isolation as of today. Will see about getting his albuterol changed over to svn Addendum: 03/01/21 at 0900 by Loulou De León RT Amended: Links added.
--- NOTE | 2021-03-01 09:26 | NUR ---
Attempted to call report, surgical nurse to return call.
[2021-03-01 10:40] VITALS: BP 138/58
--- NOTE | 2021-03-01 10:43 | NUR ---
Transferred patient to room 351 in stable condition, on 1 liter of 02. Family is aware patient is going to med surg and patient was made aware of transfer also. Transfered patient to clean bed and transported in bed. STEVE Burgos received patient upon arrival. Patient was oriented to room and call light.
[2021-03-01 11:00] VITALS: BP 124/51
--- NOTE | 2021-03-01 12:26 | NUR ---
F/u 03/01: Pt s/p APPRENTICE PAINTER BRUSH BSS no issues per EMR. PO 50-75% avg first full liquid meals started WS 02/27 partially meeting needs; pending Ensure Enlive verification by MD in EMR. LBM 02/28 continued hiram per EMR though little PO intake since admit 12 days. Pt s/p KUB this AM concerns for Ileus w/ non-dilated gas fill loops of small and large bowel per imaging note in EMR; pending surgeon note. RD d/w RN regarding labs this AM as last 02/27 as well as Ensure verification if MD agreeable. Would be able to meet 100% kcal and 86% protein needs if pt consumed ONS w/ current diet/PO trends. Will continue to monitor for further nutrition intervention needs this admit. Rec: 1. Continue full liquids diet per MD; advance diet as medically indicated to low-residue post-op; encourage PO 2. Ensure Enlive TIDWM; pending MD verification in EMR 3. routine bowel care per MD 4. scaled wt this admit; subsequent weekly wts Addendum: 03/01/21 at [address] Amended: Links added.
--- NOTE | 2021-03-01 12:34 | NUR ---
1040 pt arrived to unit, no acute changes from report given by melly morrison from ortho/neuro
--- NOTE | 2021-03-01 15:40 | NUR ---
VO from dr pena for norco 5 q6h prn
[2021-03-01] MEDS ORDERED: magnesium hydroxide 30ml (MOM) UD suspension PO ONE (16:30)
[2021-03-01] MEDS: lactose-reduced food (Ensure Enlive) - 237ml bottle PO SCH (18:00)
[2021-03-01 20:00] VITALS: BP 130/84
[2021-03-01] MEDS: atorvastatin 20mg tablet PO SCH (20:49)
[2021-03-01] MEDS: normal saline 1000ml 1,000 ML IV SCH (23:33)
[2021-03-02] VITALS: BP 131/58
[2021-03-02 07:00] VITALS: BP 128/51
[2021-03-02] MEDS: budesonide 0.5mg/2ml UD nebule IH SCH ×2 (07:56→21:09)
[2021-03-02] MEDS: lactose-reduced food (Ensure Enlive) - 237ml bottle PO SCH ×3 (08:00→18:00)
[2021-03-02] MEDS: furosemide 20 MG/2 ML vial IV SCH (08:25)
[2021-03-02] MEDS: dexamethasone inj 6 MG in normal saline 50ml IV soln 50 ML IV SCH ×2 (08:25→21:26)
[2021-03-02] MEDS: amLODIPine 5mg tablet PO SCH (08:25)
[2021-03-02] MEDS: apixaban 2.5mg tablet PO SCH ×2 (08:25→21:27)
[2021-03-02] MEDS ORDERED: levoFLOXACIN-Levaquin 500mg/D5 100 ML IV ONE (09:20)
[2021-03-02 11:00] VITALS: BP 133/59
--- NOTE | 2021-03-02 11:08 | NUR ---
Per Dr Tawanda fair from surgical standpoint to go to rehab.
[2021-03-02 11:25] LABS: BASOPHILS % (AUTO) 0.1 % (0-1); EOSINOPHILS % (AUTO) 0 % (0-6); HEMATOCRIT 36.4 % (42.0-52.0); HEMOGLOBIN 11.5 g/dl (14.0-17.9); LYMPHOCYTES # (AUTO) 0.3 X10'3 (1.1-4.8); LYMPHOCYTES % (AUTO) 1.2 % (21-51); MEAN CORPUSCULAR HEMOGLOBIN 26.7 PG (27.0-31.0); MEAN CORPUSCULAR HGB CONC 31.6 g/dL (33.0-36.5); MEAN CORPUSCULAR VOLUME 84.6 FL (78-98); MEAN PLATELET VOLUME 7.9 FL (7.4-10.4); MONOCYTES # (AUTO) 0.7 X10'3 (0-0.9); NEUTROPHILS # (AUTO) 21.6 X10'3 (1.8-7.7); NEUTROPHILS % (AUTO) 95.7 % (42-75); PLATELET COUNT 198 X10'3 (140-440); WHITE BLOOD COUNT 22.6 X10'3 (4.5-11.0)
[2021-03-02 11:38] LABS: ALANINE AMINOTRANSFERASE 15 U/L (12-78); ALBUMIN 2.3 G/DL (3.4-5.0); ALBUMIN/GLOBULIN RATIO 0.7 (1.1-1.5); ALKALINE PHOSPHATASE 72 IU/L (46-116); ANION GAP 7 (8-16); ASPARTATE AMINO TRANSFERASE 29 U/L (10-37); BILIRUBIN,TOTAL 0.5 MG/DL (0.1-1.0); BLOOD UREA NITROGEN 40 MG/DL (7-18); BUN/CREATININE RATIO 31.3 (5.4-32.0); CALCIUM 8.6 MG/DL (8.5-10.1); CHLORIDE 100 MMOL/L (99-107); CREATININE 1.28 MG/DL (0.60-1.10); GLUCOSE 136 MG/DL (70-104); SODIUM 137 MMOL/L (135-145); TOTAL CARBON DIOXIDE 29.7 MMOL/L (24-32); TOTAL PROTEIN 5.4 G/DL (6.4-8.2); eGFR 53 ML/MIN
[2021-03-02 18:00] VITALS: BP 135/71
[2021-03-02] MEDS: ALBUTEROL INHALER 1 PUFF/90 MCG INHALER IH PRN (21:16)
--- NOTE | 2021-03-02 21:17 | NUR ---
Per Patient, MDI Albuterol self administered at 2029.
[2021-03-02] MEDS: atorvastatin 20mg tablet PO SCH (21:27)
[2021-03-03] VITALS: BP 160/60
--- NOTE | 2021-03-03 05:00 | NUR ---
Stable throughout the shift, hard of hearing, AAO x 4. Breathing treatment. Tolerating soft diet, ate 25%. No BM this shift, + passing gas. No c/o pain
--- NOTE | 2021-03-03 06:30 | NUR ---
Change of shift report given to Loretta WILSON Addendum: 03/03/21 at 0724 by Tova Montiel RN Amended: Links added.
[2021-03-03 07:00] VITALS: BP 118/48
[2021-03-03] MEDS: budesonide 0.5mg/2ml UD nebule IH SCH ×2 (07:24→20:14)
[2021-03-03] MEDS: dexamethasone inj 6 MG in normal saline 50ml IV soln 50 ML IV SCH ×2 (07:46→20:00)
[2021-03-03] MEDS: apixaban 2.5mg tablet PO SCH ×2 (07:47→20:00)
[2021-03-03] MEDS: furosemide 20 MG/2 ML vial IV SCH (07:47)
[2021-03-03] MEDS: levoFLOXACIN-Levaquin 250mg/D5 50 ML IV SCH (07:47)
[2021-03-03] MEDS: amLODIPine 5mg tablet PO SCH (07:48)
[2021-03-03] MEDS: lactose-reduced food (Ensure Enlive) - 237ml bottle PO SCH ×3 (08:00→18:00)
--- NOTE | 2021-03-03 10:23 | NUR ---
1000 pt wishes to return to bed. rn and equal opportunity counselor made several attempts with uvr-ax-hzqon device to lift pt from chair without success. PT paged to return to bed
[2021-03-03 11:00] VITALS: BP 90/46
[2021-03-03 12:24] LABS: BASOPHILS % (AUTO) 0 % (0-1); EOSINOPHILS % (AUTO) 0 % (0-6); HEMATOCRIT 34.7 % (42.0-52.0); HEMOGLOBIN 11.3 g/dl (14.0-17.9); LYMPHOCYTES # (AUTO) 0.1 X10'3 (1.1-4.8); LYMPHOCYTES % (AUTO) 0.7 % (21-51); MEAN CORPUSCULAR HEMOGLOBIN 27.2 PG (27.0-31.0); MEAN CORPUSCULAR HGB CONC 32.7 g/dL (33.0-36.5); MEAN CORPUSCULAR VOLUME 83.4 FL (78-98); MEAN PLATELET VOLUME 8.1 FL (7.4-10.4); MONOCYTES # (AUTO) 0.6 X10'3 (0-0.9); MONOCYTES % (AUTO) 3.2 % (2-12); NEUTROPHILS # (AUTO) 18.5 X10'3 (1.8-7.7); NEUTROPHILS % (AUTO) 96.1 % (42-75); PLATELET COUNT 194 X10'3 (140-440); RED BLOOD COUNT 4.16 X10'6 (4.70-6.10); RED CELL DISTRIBUTION WIDTH 18.6 % (11.5-14.5); WHITE BLOOD COUNT 19.3 X10'3 (4.5-11.0)
[2021-03-03 12:33] LABS: ALANINE AMINOTRANSFERASE 16 U/L (12-78); ALBUMIN 2.2 G/DL (3.4-5.0); ALBUMIN/GLOBULIN RATIO 0.7 (1.1-1.5); ALKALINE PHOSPHATASE 69 IU/L (46-116); ANION GAP 8 (8-16); ASPARTATE AMINO TRANSFERASE 26 U/L (10-37); BILIRUBIN,TOTAL 0.5 MG/DL (0.1-1.0); BLOOD UREA NITROGEN 43 MG/DL (7-18); BUN/CREATININE RATIO 32.8 (5.4-32.0); CALCIUM 8.6 MG/DL (8.5-10.1); CHLORIDE 100 MMOL/L (99-107); CREATININE 1.31 MG/DL (0.60-1.10); GLUCOSE 129 MG/DL (70-104); POTASSIUM 3.9 MMOL/L (3.5-5.1); SODIUM 136 MMOL/L (135-145); TOTAL CARBON DIOXIDE 27.9 MMOL/L (24-32); TOTAL PROTEIN 5.4 G/DL (6.4-8.2); eGFR 52 ML/MIN
[2021-03-03 12:46] LABS: ANISOCYTOSIS 2+; ELLIPTOCYTES FEW; MICROCYTOSIS 1+; PLATELET ESTIMATE NORMAL
[2021-03-03 20:00] VITALS: BP 124/46
[2021-03-03] MEDS: atorvastatin 20mg tablet PO SCH (21:00)
[2021-03-03] MEDS: normal saline 1000ml 1,000 ML IV SCH (23:33)
[2021-03-04] VITALS: BP 120/44
[2021-03-04 04:00] VITALS: BP 116/46
--- NOTE | 2021-03-04 05:39 | NUR ---
Patient stable throughout the shift. Had 1 large soft BM at 1999. Tolerating fluids. O2 sats remain 96-98% on RA. Pt requests to keep the O2 close and wear pulse ox for his comfort.
[2021-03-04 06:10] LABS: BASOPHILS % (AUTO) 0.1 % (0-1); EOSINOPHILS % (AUTO) 0 % (0-6); LYMPHOCYTES # (AUTO) 0.2 X10'3 (1.1-4.8); LYMPHOCYTES % (AUTO) 1.2 % (21-51); MEAN CORPUSCULAR HEMOGLOBIN 27.1 PG (27.0-31.0); MEAN CORPUSCULAR HGB CONC 32.4 g/dL (33.0-36.5); MEAN CORPUSCULAR VOLUME 83.8 FL (78-98); MEAN PLATELET VOLUME 8.2 FL (7.4-10.4); MONOCYTES # (AUTO) 0.5 X10'3 (0-0.9); MONOCYTES % (AUTO) 2.7 % (2-12); PLATELET COUNT 174 X10'3 (140-440); RED BLOOD COUNT 4.06 X10'6 (4.70-6.10); RED CELL DISTRIBUTION WIDTH 18.4 % (11.5-14.5); WHITE BLOOD COUNT 17.7 X10'3 (4.5-11.0)
--- NOTE | 2021-03-04 06:30 | NUR ---
Change of shift report given to Monica WILSON Addendum: 03/04/21 at 0654 by Tova Montiel RN Amended: Links added.
[2021-03-04 06:48] LABS: ALANINE AMINOTRANSFERASE 19 U/L (12-78); ALBUMIN 2.2 G/DL (3.4-5.0); ALBUMIN/GLOBULIN RATIO 0.7 (1.1-1.5); ALKALINE PHOSPHATASE 72 IU/L (46-116); ANION GAP 9 (8-16); ASPARTATE AMINO TRANSFERASE 22 U/L (10-37); BILIRUBIN,TOTAL 0.5 MG/DL (0.1-1.0); BLOOD UREA NITROGEN 42 MG/DL (7-18); BUN/CREATININE RATIO 31.3 (5.4-32.0); CALCIUM 8.8 MG/DL (8.5-10.1); CHLORIDE 102 MMOL/L (99-107); CREATININE 1.34 MG/DL (0.60-1.10); GLUCOSE 135 MG/DL (70-104); POTASSIUM 3.9 MMOL/L (3.5-5.1); SODIUM 139 MMOL/L (135-145); TOTAL CARBON DIOXIDE 27.9 MMOL/L (24-32); TOTAL PROTEIN 5.3 G/DL (6.4-8.2); eGFR 50 ML/MIN
[2021-03-04] MEDS: budesonide 0.5mg/2ml UD nebule IH SCH ×2 (07:32→20:14)
[2021-03-04] MEDS: levoFLOXACIN-Levaquin 250mg/D5 50 ML IV SCH (07:47)
[2021-03-04] MEDS: furosemide 20 MG/2 ML vial IV SCH (07:48)
[2021-03-04] MEDS: apixaban 2.5mg tablet PO SCH ×2 (07:48→20:38)
[2021-03-04] MEDS: amLODIPine 5mg tablet PO SCH (07:49)
[2021-03-04] MEDS: dexamethasone inj 6 MG in normal saline 50ml IV soln 50 ML IV SCH ×2 (07:59→20:08)
[2021-03-04 08:00] VITALS: BP 124/48
[2021-03-04] MEDS: lactose-reduced food (Ensure Enlive) - 237ml bottle PO SCH ×3 (08:00→18:00)
[2021-03-04 12:00] VITALS: BP 110/52
[2021-03-04 19:00] VITALS: BP 115/43
[2021-03-04] MEDS: atorvastatin 20mg tablet PO SCH (20:08)
--- NOTE | 2021-03-04 20:20 | NUR ---
His platelets having been trending downwards (02/26- 289, 02/27- 277, 03/02-198, 03/03- 194, 03/04-174). He also has thin skin and some bleeding around the iv and from skin tears. I contacted Dr. Camacho to ask if 2000 dose of Eliquis should be held. Dr. Camacho advised not to hold the Eliquis dose. Addendum: 03/05/21 at 0555 by Tova Montiel RN Stable throughout the shift. Dressings changed to IVs on right and left forearms
[2021-03-05] VITALS: BP 124/62
--- NOTE | 2021-03-05 06:30 | NUR ---
Change of shift report given to Monica WILSON Addendum: 03/05/21 at 0654 by Tova Montiel RN Amended: Links added.
[2021-03-05 06:50] LABS: BASOPHILS % (AUTO) 0 % (0-1); EOSINOPHILS % (AUTO) 0 % (0-6); HEMATOCRIT 34.4 % (42.0-52.0); HEMOGLOBIN 11.2 g/dl (14.0-17.9); LYMPHOCYTES # (AUTO) 0.2 X10'3 (1.1-4.8); LYMPHOCYTES % (AUTO) 1.3 % (21-51); MEAN CORPUSCULAR HEMOGLOBIN 27.2 PG (27.0-31.0); MEAN CORPUSCULAR HGB CONC 32.6 g/dL (33.0-36.5); MEAN CORPUSCULAR VOLUME 83.4 FL (78-98); MEAN PLATELET VOLUME 8.1 FL (7.4-10.4); MONOCYTES # (AUTO) 0.6 X10'3 (0-0.9); MONOCYTES % (AUTO) 3.5 % (2-12); NEUTROPHILS # (AUTO) 15.9 X10'3 (1.8-7.7); NEUTROPHILS % (AUTO) 95.2 % (42-75); PLATELET COUNT 204 X10'3 (140-440); RED BLOOD COUNT 4.12 X10'6 (4.70-6.10); RED CELL DISTRIBUTION WIDTH 18.6 % (11.5-14.5); WHITE BLOOD COUNT 16.7 X10'3 (4.5-11.0)
[2021-03-05 07:01] LABS: ALANINE AMINOTRANSFERASE 20 U/L (12-78); ALBUMIN 2.2 G/DL (3.4-5.0); ALBUMIN/GLOBULIN RATIO 0.7 (1.1-1.5); ALKALINE PHOSPHATASE 71 IU/L (46-116); ANION GAP 8 (8-16); ASPARTATE AMINO TRANSFERASE 24 U/L (10-37); BILIRUBIN,TOTAL 0.5 MG/DL (0.1-1.0); BLOOD UREA NITROGEN 47 MG/DL (7-18); BUN/CREATININE RATIO 34.1 (5.4-32.0); CALCIUM 8.4 MG/DL (8.5-10.1); CHLORIDE 100 MMOL/L (99-107); CREATININE 1.38 MG/DL (0.60-1.10); GLUCOSE 130 MG/DL (70-104); POTASSIUM 3.9 MMOL/L (3.5-5.1); SODIUM 138 MMOL/L (135-145); TOTAL CARBON DIOXIDE 30.5 MMOL/L (24-32); TOTAL PROTEIN 5.2 G/DL (6.4-8.2); eGFR 49 ML/MIN
[2021-03-05 08:00] VITALS: BP 116/53
[2021-03-05] MEDS: budesonide 0.5mg/2ml UD nebule IH SCH ×2 (08:56→20:59)
[2021-03-05 09:49] LABS: ANISOCYTOSIS 2+; BURR CELLS FEW; ELLIPTOCYTES FEW; PLATELET ESTIMATE NORMAL; TEAR DROP CELLS 1+
[2021-03-05] MEDS: apixaban 2.5mg tablet PO SCH ×2 (10:04→19:56)
[2021-03-05] MEDS: dexamethasone inj 6 MG in normal saline 50ml IV soln 50 ML IV SCH (10:05)
[2021-03-05] MEDS: furosemide 20 MG/2 ML vial IV SCH (10:05)
[2021-03-05] MEDS: amLODIPine 5mg tablet PO SCH (10:05)
[2021-03-05] MEDS: levoFLOXACIN-Levaquin 250mg/D5 50 ML IV SCH (10:05)
[2021-03-05 12:00] VITALS: BP 124/59
--- NOTE | 2021-03-05 14:23 | NUR ---
Reassessment: Pt has been advanced to Mechanical soft diet 03/02 w/ no further SLIDE MACHINE TENDER recs, though pt able to tolerated diet per MD note. Pt w/ mostly 50-75% intake since diet advancement and 100% intake of ONS meeting needs. LBM 03/04. No changes to nutrition recommendations, will continue to monitor. Rec: 1. Continue Mechanical soft diet as tolerated per MD 2. Ensure Enlive TIDWM 3. routine bowel care per MD 4. scaled wt this admit; subsequent weekly wts Addendum: 03/05/21 at [address] Amended: Links added.
[2021-03-05] MEDS: lactose-reduced food (Ensure Enlive) - 237ml bottle PO SCH (18:00)
--- NOTE | 2021-03-05 18:28 | NUR ---
Report given to Raven WILSON
--- NOTE | 2021-03-05 18:30 | NUR ---
Patient in room CAMI 351. I have received report from Monica WILSON and had the opportunity to ask questions and assume patient care.
[2021-03-05 19:00] VITALS: BP 129/36
[2021-03-05] MEDS: dexamethasone 4mg tablet PO SCH (19:56)
[2021-03-05] MEDS: lactobacillus rhamnosus 10,000 MMU CELLS/CAPSULE PO SCH (19:56)
[2021-03-05] MEDS: atorvastatin 20mg tablet PO SCH (19:56)
[2021-03-05] MEDS: normal saline 1000ml 1,000 ML IV SCH (23:33)
[2021-03-06 00:30] VITALS: BP 124/48
[2021-03-06] MEDS: HYDROcodone/acetaminophen 5mg/325mg tablet PO PRN ×2 (00:38→22:45)
--- NOTE | 2021-03-06 05:00 | NUR ---
Patient awoke and stated that he felt like he needed oxygen. O2 sats were 94% RA, and lungs clear to auscultation. Put on 1 L for patients' comfort.
[2021-03-06 06:47] LABS: ALANINE AMINOTRANSFERASE 20 U/L (12-78); ALBUMIN 2.3 G/DL (3.4-5.0); ALBUMIN/GLOBULIN RATIO 0.7 (1.1-1.5); ALKALINE PHOSPHATASE 74 IU/L (46-116); ANION GAP 6 (8-16); ASPARTATE AMINO TRANSFERASE 28 U/L (10-37); BILIRUBIN,TOTAL 0.6 MG/DL (0.1-1.0); BLOOD UREA NITROGEN 44 MG/DL (7-18); BUN/CREATININE RATIO 33.8 (5.4-32.0); CALCIUM 8.6 MG/DL (8.5-10.1); CHLORIDE 101 MMOL/L (99-107); GLUCOSE 99 MG/DL (70-104); POTASSIUM 4.1 MMOL/L (3.5-5.1); SODIUM 139 MMOL/L (135-145); TOTAL CARBON DIOXIDE 32.2 MMOL/L (24-32); TOTAL PROTEIN 5.4 G/DL (6.4-8.2); eGFR 52 ML/MIN
[2021-03-06 06:50] LABS: BASOPHILS % (AUTO) 0.1 % (0-1); EOSINOPHILS % (AUTO) 0 % (0-6); HEMATOCRIT 33.6 % (42.0-52.0); LYMPHOCYTES # (AUTO) 0.3 X10'3 (1.1-4.8); MEAN CORPUSCULAR HEMOGLOBIN 27.1 PG (27.0-31.0); MEAN CORPUSCULAR HGB CONC 32.8 g/dL (33.0-36.5); MEAN CORPUSCULAR VOLUME 82.8 FL (78-98); MONOCYTES # (AUTO) 0.5 X10'3 (0-0.9); MONOCYTES % (AUTO) 3.1 % (2-12); NEUTROPHILS # (AUTO) 15.6 X10'3 (1.8-7.7); NEUTROPHILS % (AUTO) 94.8 % (42-75); PLATELET COUNT 233 X10'3 (140-440); RED BLOOD COUNT 4.05 X10'6 (4.70-6.10); RED CELL DISTRIBUTION WIDTH 18.1 % (11.5-14.5); WHITE BLOOD COUNT 16.5 X10'3 (4.5-11.0)
[2021-03-06 08:00] VITALS: BP 130/61
[2021-03-06] MEDS: amLODIPine 5mg tablet PO SCH (08:22)
[2021-03-06] MEDS: dexamethasone 4mg tablet PO SCH ×2 (08:22→21:18)
[2021-03-06] MEDS: lactobacillus rhamnosus 10,000 MMU CELLS/CAPSULE PO SCH ×2 (08:22→21:18)
[2021-03-06] MEDS: apixaban 2.5mg tablet PO SCH ×2 (08:22→21:18)
[2021-03-06] MEDS: furosemide 20 MG/2 ML vial IV SCH (08:22)
[2021-03-06] MEDS: lactose-reduced food (Ensure Enlive) - 237ml bottle PO SCH ×3 (08:22→18:30)
[2021-03-06] MEDS: budesonide 0.5mg/2ml UD nebule IH SCH ×2 (08:51→20:01)
[2021-03-06 12:00] VITALS: BP 119/50
[2021-03-06] MEDS: levoFLOXACIN 250mg tablet PO SCH (13:33)
--- NOTE | 2021-03-06 18:25 | NUR ---
Report given to Angely WILSON
[2021-03-06 19:00] VITALS: BP 115/45
[2021-03-06] MEDS: atorvastatin 20mg tablet PO SCH (21:18)
[2021-03-06 23:00] VITALS: BP 118/51
[2021-03-07 07:19] LABS: BASOPHILS % (AUTO) 0 % (0-1); EOSINOPHILS % (AUTO) 0 % (0-6); HEMATOCRIT 31.1 % (42.0-52.0); HEMOGLOBIN 10.1 g/dl (14.0-17.9); LYMPHOCYTES # (AUTO) 0.4 X10'3 (1.1-4.8); MEAN CORPUSCULAR HEMOGLOBIN 27.2 PG (27.0-31.0); MEAN CORPUSCULAR HGB CONC 32.7 g/dL (33.0-36.5); MEAN CORPUSCULAR VOLUME 83.3 FL (78-98); MEAN PLATELET VOLUME 7.8 FL (7.4-10.4); MONOCYTES # (AUTO) 0.4 X10'3 (0-0.9); MONOCYTES % (AUTO) 3.1 % (2-12); NEUTROPHILS % (AUTO) 93.9 % (42-75); PLATELET COUNT 207 X10'3 (140-440); RED BLOOD COUNT 3.73 X10'6 (4.70-6.10); RED CELL DISTRIBUTION WIDTH 19.3 % (11.5-14.5); WHITE BLOOD COUNT 13.8 X10'3 (4.5-11.0)
[2021-03-07 07:40] LABS: ALANINE AMINOTRANSFERASE 18 U/L (12-78); ALBUMIN 2.2 G/DL (3.4-5.0); ALBUMIN/GLOBULIN RATIO 0.8 (1.1-1.5); ALKALINE PHOSPHATASE 69 IU/L (46-116); ANION GAP 6 (8-16); ASPARTATE AMINO TRANSFERASE 25 U/L (10-37); BILIRUBIN,TOTAL 0.5 MG/DL (0.1-1.0); BLOOD UREA NITROGEN 50 MG/DL (7-18); CALCIUM 8.6 MG/DL (8.5-10.1); CHLORIDE 101 MMOL/L (99-107); CREATININE 1.47 MG/DL (0.60-1.10); GLUCOSE 102 MG/DL (70-104); POTASSIUM 4.2 MMOL/L (3.5-5.1); SODIUM 139 MMOL/L (135-145); TOTAL CARBON DIOXIDE 32.5 MMOL/L (24-32); eGFR 45 ML/MIN
[2021-03-07] MEDS: furosemide 20 MG/2 ML vial IV SCH (07:48)
[2021-03-07] MEDS: amLODIPine 5mg tablet PO SCH (07:48)
[2021-03-07] MEDS: lactobacillus rhamnosus 10,000 MMU CELLS/CAPSULE PO SCH ×2 (07:48→22:41)
[2021-03-07] MEDS: apixaban 2.5mg tablet PO SCH ×2 (07:49→22:42)
[2021-03-07] MEDS: dexamethasone 4mg tablet PO SCH ×2 (07:49→22:41)
[2021-03-07 08:00] VITALS: BP 119/48
[2021-03-07] MEDS: lactose-reduced food (Ensure Enlive) - 237ml bottle PO SCH ×3 (08:00→18:00)
[2021-03-07] MEDS: budesonide 0.5mg/2ml UD nebule IH SCH ×2 (08:17→20:29)
[2021-03-07] MEDS: levoFLOXACIN 250mg tablet PO SCH (10:49)
[2021-03-07 12:00] VITALS: BP 132/56
[2021-03-07 20:00] VITALS: BP 134/41
[2021-03-07 21:00] VITALS: BP 126/52
--- NOTE | 2021-03-07 21:06 | NUR ---
PIPE AND BOILER COVERS SUPERVISOR called to LORIN DAVIS RN to monitor SVN. Addendum: 03/07/21 at 2108 by Jay Harrison RT Amended: Links added.
[2021-03-07] MEDS: atorvastatin 20mg tablet PO SCH (22:42)
[2021-03-07] MEDS: normal saline 1000ml 1,000 ML IV SCH (23:33)
[2021-03-08] VITALS: BP 114/40
[2021-03-08 04:30] VITALS: BP 118/56
[2021-03-08 06:28] LABS: BASOPHILS % (AUTO) 0.1 % (0-1); EOSINOPHILS % (AUTO) 0 % (0-6); HEMATOCRIT 31.3 % (42.0-52.0); HEMOGLOBIN 10.2 g/dl (14.0-17.9); LYMPHOCYTES # (AUTO) 0.4 X10'3 (1.1-4.8); LYMPHOCYTES % (AUTO) 2.1 % (21-51); MEAN CORPUSCULAR HEMOGLOBIN 27.2 PG (27.0-31.0); MEAN CORPUSCULAR HGB CONC 32.6 g/dL (33.0-36.5); MEAN CORPUSCULAR VOLUME 83.5 FL (78-98); MEAN PLATELET VOLUME 7.8 FL (7.4-10.4); MONOCYTES # (AUTO) 0.5 X10'3 (0-0.9); MONOCYTES % (AUTO) 2.8 % (2-12); NEUTROPHILS # (AUTO) 15.8 X10'3 (1.8-7.7); PLATELET COUNT 209 X10'3 (140-440); RED BLOOD COUNT 3.74 X10'6 (4.70-6.10); RED CELL DISTRIBUTION WIDTH 18.7 % (11.5-14.5); WHITE BLOOD COUNT 16.6 X10'3 (4.5-11.0)
[2021-03-08 07:03] LABS: ALANINE AMINOTRANSFERASE 25 U/L (12-78); ALBUMIN 2.2 G/DL (3.4-5.0); ALBUMIN/GLOBULIN RATIO 0.8 (1.1-1.5); ALKALINE PHOSPHATASE 72 IU/L (46-116); ANION GAP 5 (8-16); ASPARTATE AMINO TRANSFERASE 25 U/L (10-37); BILIRUBIN,TOTAL 0.5 MG/DL (0.1-1.0); BLOOD UREA NITROGEN 53 MG/DL (7-18); BUN/CREATININE RATIO 40.2 (5.4-32.0); CALCIUM 8.2 MG/DL (8.5-10.1); CHLORIDE 102 MMOL/L (99-107); CREATININE 1.32 MG/DL (0.60-1.10); GLUCOSE 107 MG/DL (70-104); POTASSIUM 4.3 MMOL/L (3.5-5.1); SODIUM 139 MMOL/L (135-145); TOTAL CARBON DIOXIDE 31.6 MMOL/L (24-32); TOTAL PROTEIN 5.1 G/DL (6.4-8.2); eGFR 51 ML/MIN
[2021-03-08 08:00] VITALS: BP 120/51
[2021-03-08] MEDS: budesonide 0.5mg/2ml UD nebule IH SCH (08:00)
[2021-03-08] MEDS: lactose-reduced food (Ensure Enlive) - 237ml bottle PO SCH ×2 (08:09→12:41)
[2021-03-08] MEDS: lactobacillus rhamnosus 10,000 MMU CELLS/CAPSULE PO SCH (08:09)
[2021-03-08] MEDS: furosemide 20 MG/2 ML vial IV SCH (08:09)
[2021-03-08] MEDS: amLODIPine 5mg tablet PO SCH (08:09)
[2021-03-08] MEDS: apixaban 2.5mg tablet PO SCH (08:09)
[2021-03-08] MEDS: dexamethasone 4mg tablet PO SCH (08:09)
[2021-03-08] MEDS: levoFLOXACIN 250mg tablet PO SCH (11:50)
[2021-03-08 12:00] VITALS: BP 123/44
--- NOTE | 2021-03-08 15:51 | NUR ---
Pt Addendum: 03/08/21 at 1553 by Monica Montiel RN Pt discharged to [facility], report called to RN at facility.
== END 2021-03-08 16:41 | DRG 329 ==
LOC: ER 08:33 → ED HOLD 10:39 → SUR 3N 12:44 → ORTHO 4S 02-20 20:05 → SUR 3N 03-01 10:33
PROVIDERS: ADMIT Family Medicine; ATTEND Family Medicine
PROC: 0D9670Z Drainage of Stomach with Drainage Device, Via Natural or Artificial Opening (ICD-10-PCS; 2021-02-17)
PROC: 0DN80ZZ Release Small Intestine, Open Approach (ICD-10-PCS; 2021-02-19)
PROC: 3E0T3BZ Introduction of Anesthetic Agent into Peripheral Nerves and Plexi, Percutaneous Approach (ICD-10-PCS; 2021-02-19)
PROC: 0DB80ZZ Excision of Small Intestine, Open Approach (ICD-10-PCS; principal; 2021-02-19 21:05)
PROC: B32T1ZZ Computerized Tomography (CT Scan) of Left Pulmonary Artery using Low Osmolar Contrast (ICD-10-PCS; 2021-02-23)
PROC: B3201ZZ Computerized Tomography (CT Scan) of Thoracic Aorta using Low Osmolar Contrast (ICD-10-PCS; 2021-02-23)
PROC: B32S1ZZ Computerized Tomography (CT Scan) of Right Pulmonary Artery using Low Osmolar Contrast (ICD-10-PCS; 2021-02-23)
PROC: BW241ZZ Computerized Tomography (CT Scan) of Chest and Abdomen using Low Osmolar Contrast (ICD-10-PCS; 2021-03-03)
DX: K46.0 Unspecified abdominal hernia with obstruction, without gangrene (principal); J15.1 Pneumonia due to Pseudomonas; U07.1 COVID-19; J12.82 Pneumonia due to coronavirus disease 2019; J96.90 Respiratory failure, unspecified, unspecified whether with hypoxia or hypercapnia; I13.0 Hypertensive heart and chronic kidney disease with heart failure and stage 1 through stage 4 chronic kidney disease, or unspecified chronic kidney disease; K55.9 Vascular disorder of intestine, unspecified; N17.9 Acute kidney failure, unspecified; R18.8 Other ascites; E87.2 Acidosis; R16.0 Hepatomegaly, not elsewhere classified; E78.5 Hyperlipidemia, unspecified; F32.A Depression, unspecified; I35.0 Nonrheumatic aortic (valve) stenosis; I48.91 Unspecified atrial fibrillation; I50.9 Heart failure, unspecified; K66.0 Peritoneal adhesions (postprocedural) (postinfection); N18.9 Chronic kidney disease, unspecified; Z79.899 Other long term (current) drug therapy
CPT/HCPCS: 36415; 71045; 71260; 71275; 74018; 74176; 76604; 80048; 80053; 81001; 82948; 83605; 83615; 83690; 83735; 83880; 84100; 84484; 85007; 85008; 85025; 85379; 85610; 86140; 87040; 87070; 87077; 87081; 87186; 87635; 92508; 92616; 93005; 93970; 94640; 94667; 94668; 94760; 96374; 96375; 97110; 97116; 97161; 97530; 97535; 99285; A4215; A4618; A6258; A6449; A7000; C1758; C9290; G0378; J0690; J1100; J1170; J1644; J1940; J1956; J2270; J2405; J3010; J3490; J7030; J7040; J7050; J7120; P9047; Q9963; Q9967

== ENCOUNTER 2021-04-29 19:55 | Inpatient (IN) | payer OTHER, MEDICARE ==
[~2021-04-29] VITALS: Ht 182.9 cm; Wt 71.6 kg
--- NOTE | 2021-04-29 00:30 | NUR ---
Received report from ADRIAN Webb, ADRIAN about patient going to room 313 ACCE.
[~2021-04-29 19:55] MED LIST changes: -BUDE10.2 INH; -DOCU-148 PO; +FLUT16SP16 BOTHNARES; +FLUT1DIS20 INH; -LACT1CAP26 PO; -TIOT4MIS5 IH
[2021-04-29 20:15] LABS: ABG HCO3 42.4 mmol/L (22.0-26.0); ABG OXYGEN SATURATION 88.7 % (94-97); ABG PCO2 (T) 72.8 mmHg (35.0-48.0); ABG PO2 (T) 57.7 mmHg (75.0-100.0); ALLEN'S TEST Modified; FCOHb 1.1 % (0.0-3.9); FLOW 15 L/min; FMetHb 0.1 % (0.0-1.5); FO2Hb 87.6 % (94-97); PATIENT TEMPERATURE 37.3; TOTAL HEMOGLOBIN 9.6 G/dl (14.0-18.0)
[2021-04-29 20:48] LABS: ALANINE AMINOTRANSFERASE 22 U/L (12-78); ALBUMIN/GLOBULIN RATIO 0.5 (1.1-1.5); ALKALINE PHOSPHATASE 76 IU/L (46-116); ANION GAP 9 (8-16); ASPARTATE AMINO TRANSFERASE 19 U/L (10-37); BILIRUBIN,TOTAL 0.5 MG/DL (0.1-1.0); BLOOD UREA NITROGEN 66 MG/DL (7-18); BUN/CREATININE RATIO 40.7 (5.4-32.0); CALCIUM 9.5 MG/DL (8.5-10.1); CHLORIDE 100 MMOL/L (99-107); CREATININE 1.62 MG/DL (0.60-1.10); GLUCOSE 108 MG/DL (70-104); POTASSIUM 4.4 MMOL/L (3.5-5.1); SODIUM 147 MMOL/L (135-145); TOTAL CARBON DIOXIDE 38.4 MMOL/L (24-32); TOTAL PROTEIN 5.9 G/DL (6.4-8.2); eGFR 40 ML/MIN
[2021-04-29 21:00] LABS: BASOPHILS # (AUTO) 0.1 X10'3 (0-0.2); BASOPHILS % (AUTO) 0.4 % (0-1); EOSINOPHILS % (AUTO) 0.1 % (0-6); LYMPHOCYTES # (AUTO) 0.5 X10'3 (1.1-4.8); MEAN CORPUSCULAR HEMOGLOBIN 26.9 PG (27.0-31.0); MEAN CORPUSCULAR HGB CONC 30.9 g/dL (33.0-36.5); MEAN CORPUSCULAR VOLUME 87.1 FL (78-98); MEAN PLATELET VOLUME 7.8 FL (7.4-10.4); MONOCYTES # (AUTO) 0.6 X10'3 (0-0.9); NEUTROPHILS # (AUTO) 14.2 X10'3 (1.8-7.7); NEUTROPHILS % (AUTO) 92.5 % (42-75); PLATELET COUNT 159 X10'3 (140-440); RED BLOOD COUNT 3.33 X10'6 (4.70-6.10); RED CELL DISTRIBUTION WIDTH 19.7 % (11.5-14.5); WHITE BLOOD COUNT 15.3 X10'3 (4.5-11.0)
[2021-04-29] MEDS ORDERED: LIDOcaine 1% W/epiNEPHrine 1:100,000 20ml vial SQ ONE (21:25)
[2021-04-29 22:06] LABS: HYPOCHROMASIA 1+; PLATELET ESTIMATE NORMAL
[2021-04-29 22:07] LABS: ANISOCYTOSIS 2+; ELLIPTOCYTES 1+; TARGET CELLS FEW
[2021-04-29 22:11] LABS: ABG BASE EXCESS 15.1 mmol/L (-2.0-2.0); ABG HCO3 47.8 mmol/L (22.0-26.0); ABG OXYGEN SATURATION 98.8 % (94-97); ABG PCO2 (T) 130.1 mmHg (35.0-48.0); ABG PO2 (T) 183.4 mmHg (75.0-100.0); ALLEN'S TEST POSITIVE; FCOHb 0.9 % (0.0-3.9); FMetHb 0.3 % (0.0-1.5); FO2Hb 97.6 % (94-97); PATIENT TEMPERATURE 36.7; TOTAL HEMOGLOBIN 10.9 G/dl (14.0-18.0)
[2021-04-29 22:56] LABS: ABG BASE EXCESS 14.2 mmol/L (-2.0-2.0); ABG HCO3 41.7 mmol/L (22.0-26.0); ABG OXYGEN SATURATION 87.6 % (94-97); ABG PCO2 (T) 71.1 mmHg (35.0-48.0); ABG PO2 (T) 52.8 mmHg (75.0-100.0); ALLEN'S TEST POSITIVE; FCOHb 0.8 % (0.0-3.9); FMetHb 0.1 % (0.0-1.5); FO2Hb 86.8 % (94-97); PATIENT TEMPERATURE 36.7
[2021-04-29] MEDS ORDERED: LEVO125T PO (23:14)
[2021-04-29] MEDS ORDERED: DOCU-148 PO (23:14)
[2021-04-29] MEDS ORDERED: MOME13HF2 INH (23:14)
[2021-04-29] MEDS ORDERED: mag hydrox/Alum hydrox/simeth 30ml oral suspension PO PRN (23:25)
[2021-04-29] MEDS ORDERED: magnesium hydroxide 30ml (MOM) UD suspension PO PRN (23:25)
[2021-04-29] MEDS ORDERED: magnesium Cl slow-release 64mg tablet PO PRN (23:25)
[2021-04-29] MEDS ORDERED: potassium CL 10mEq/100ml bag 100 ML IV PRN (23:25)
[2021-04-29] MEDS ORDERED: ondansetron/PF 4mg/2ml inj IV PRN (23:25)
[2021-04-29] MEDS ORDERED: magnesium 4gm in 100ml NS 100 ML IV PRN (23:25)
[2021-04-29] MEDS ORDERED: potassium Cl 20 mEq SR tablet PO PRN (23:25)
[2021-04-29] MEDS ORDERED: magnesium 2GM in 50ml NS 50 ML IV PRN (23:25)
[2021-04-29] MEDS ORDERED: albuterol 2.5 MG/3 ML nebule NEB PRN (23:45)
[2021-04-29 23:55] LABS: MAGNESIUM 2.4 MG/DL (1.5-2.4)
--- NOTE | 2021-04-30 01:10 | NUR ---
Patient arrived to ACCE unit, Dx: SOB, difficulty breathing. Left pleural effusion. BPap noted on 40%. No acute distress noted at this time. Skin assessment completed. wound on sacral area, pics taken and placed on chart. Vital signs taken. Safety measures and comfort maintained. Will continue to monitor.
[2021-04-30 02:00] VITALS: BP 98/50
[2021-04-30] MEDS: albuterol 2.5 MG/3 ML nebule NEB SCH ×4 (02:29→20:38)
--- NOTE | 2021-04-30 03:43 | NUR ---
CALLED TO RT 0200AM [facility] FOR PATIENT DUE-WAS THIS DRAWN? PLEASE CALL YASMANI AT [phone]. THANK YOU
[2021-04-30 04:52] LABS: ABG BASE EXCESS 14.2 mmol/L (-2.0-2.0); ABG HCO3 38.3 mmol/L (22.0-26.0); ABG OXYGEN SATURATION 96.9 % (94-97); ABG PCO2 (T) 46.1 mmHg (35.0-48.0); ABG PO2 (T) 84.3 mmHg (75.0-100.0); ALLEN'S TEST POSITIVE; FMetHb 0.3 % (0.0-1.5); FO2Hb 96.6 % (94-97); RESPIRATORY RATE 20 b/min; TOTAL HEMOGLOBIN 9.4 G/dl (14.0-18.0)
--- NOTE | 2021-04-30 06:10 | NUR ---
RECEIVED REPORT FROM STEVE AVILA
--- NOTE | 2021-04-30 06:21 | NUR ---
Problems reprioritized. Patient report given, questions answered & plan of care reviewed with STEVE Howard.
[2021-04-30 06:30] VITALS: BP 94/43
[2021-04-30] MEDS: amLODIPine 5mg tablet PO SCH (07:49)
[2021-04-30] MEDS: furosemide 20MG tablet PO SCH ×2 (07:49→19:42)
[2021-04-30] MEDS: docusate sod 100mg capsule PO SCH ×2 (07:49→19:41)
[2021-04-30] MEDS: levoTHYROXINE 125mcg tablet PO SCH (07:50)
[2021-04-30] MEDS ORDERED: apixaban 2.5mg tablet PO SCH (08:00)
[2021-04-30] MEDS: K and/or MAG REPLACEMENT MC SCH ×2 (08:00→19:41)
--- NOTE | 2021-04-30 08:17 | NUR ---
Age screen: Pt admitted w/ pleural effusion, has hx of COPD, SBO and frequent thoracentesis per EMR. Currently on BiPAP. Pt on heart healthy diet pending PO, though recommend liberalizing to Regular diet given geriatric age. Pt noted w/ sacral pressure ulcer, pending WO assessment. Will continue to monitor. Addendum: 04/30/21 at [address] Amended: Links added.
[2021-04-30] MEDS: budesonide 0.5mg/2ml UD nebule IH SCH ×2 (08:26→20:39)
--- NOTE | 2021-04-30 09:49 | NUR ---
PAGE TO RESPIRATORY 313 [facility]SU[facility]. PT NEEDS RESPIRATORY TO TRANSPORT TO CT IN 15 MIN PT ON CONTINUOUS BIPAP. KIKO 3155
[2021-04-30 11:11] LABS: BASOPHILS # (AUTO) 0.1 X10'3 (0-0.2); BASOPHILS % (AUTO) 0.4 % (0-1); EOSINOPHILS % (AUTO) 0 % (0-6); HEMATOCRIT 26.5 % (42.0-52.0); HEMOGLOBIN 8.3 g/dl (14.0-17.9); LYMPHOCYTES # (AUTO) 0.4 X10'3 (1.1-4.8); LYMPHOCYTES % (AUTO) 3.1 % (21-51); MEAN CORPUSCULAR HEMOGLOBIN 26.9 PG (27.0-31.0); MEAN CORPUSCULAR HGB CONC 31.4 g/dL (33.0-36.5); MEAN CORPUSCULAR VOLUME 85.6 FL (78-98); MEAN PLATELET VOLUME 7.6 FL (7.4-10.4); MONOCYTES # (AUTO) 0.5 X10'3 (0-0.9); MONOCYTES % (AUTO) 3.6 % (2-12); NEUTROPHILS # (AUTO) 13.1 X10'3 (1.8-7.7); NEUTROPHILS % (AUTO) 92.9 % (42-75); PLATELET COUNT 146 X10'3 (140-440); RED BLOOD COUNT 3.09 X10'6 (4.70-6.10); RED CELL DISTRIBUTION WIDTH 19.5 % (11.5-14.5); WHITE BLOOD COUNT 14.1 X10'3 (4.5-11.0)
[2021-04-30 11:29] LABS: ANISOCYTOSIS 2+; HYPOCHROMASIA 1+; PLATELET ESTIMATE NORMAL; POLYCHROMASIA FEW; STOMATOCYTES 2+
[2021-04-30 11:30] LABS: ELLIPTOCYTES FEW; SCHISTOCYTES FEW
[2021-04-30 11:46] LABS: ALANINE AMINOTRANSFERASE 22 U/L (12-78); ALBUMIN/GLOBULIN RATIO 0.6 (1.1-1.5); ALKALINE PHOSPHATASE 76 IU/L (46-116); ANION GAP 9 (8-16); ASPARTATE AMINO TRANSFERASE 20 U/L (10-37); BILIRUBIN,TOTAL 0.6 MG/DL (0.1-1.0); BLOOD UREA NITROGEN 76 MG/DL (7-18); BUN/CREATININE RATIO 43.4 (5.4-32.0); CALCIUM 8.9 MG/DL (8.5-10.1); CHLORIDE 99 MMOL/L (99-107); CREATININE 1.75 MG/DL (0.60-1.10); GLUCOSE 100 MG/DL (70-104); MAGNESIUM 2.4 MG/DL (1.5-2.4); SODIUM 147 MMOL/L (135-145); TOTAL CARBON DIOXIDE 38.6 MMOL/L (24-32); TOTAL PROTEIN 5.1 G/DL (6.4-8.2); eGFR 37 ML/MIN
[2021-04-30] MEDS ORDERED: levoFLOXACIN-Levaquin 500mg/D5 100 ML IV ONE (15:30)
[2021-04-30] MEDS ORDERED: ondansetron 4mg rapidly disintigrating tab PO PRN (15:35)
[2021-04-30] MEDS ORDERED: heparin 25,000 UNIT/250ml bag 250 ML IV SCH (15:40)
[2021-04-30] MEDS ORDERED: heparin 10,000 units/1 ML INJ IV ONE (15:40)
[2021-04-30] MEDS ORDERED: heparin 10,000 units/1 ML INJ IV PRN (15:40)
[2021-04-30 18:00] VITALS: BP 100/52
--- NOTE | 2021-04-30 18:17 | NUR ---
PHARMACIST SAID IT WAS OK TO HANG HEPARIN AND PT ABX IN PICC LINE LONG THEY ARE CONNECTED TO DIFFERENT LUMENS
--- NOTE | 2021-04-30 18:19 | NUR ---
GAVE REPORT TO Saulo GARCES RN SINCE PT ONLY HAS 2 LUMEN PICC, PASSING SECOND ABX TO HARD METALS HAND ENGRAVER
[2021-04-30] MEDS: metroNIDAZOLE-Flagyl 500mg/NS 100 ML IV SCH (19:15)
[2021-04-30] MEDS: atorvastatin 20mg tablet PO SCH (19:43)
[2021-04-30] MEDS ORDERED: docusate sod 100mg capsule PO SCH (21:00)
[2021-04-30 22:00] VITALS: BP 95/44
[2021-05-01] VITALS (7 sets, daily range): BP systolic 94–107; BP diastolic 41–50
[2021-05-01] MEDS: metroNIDAZOLE-Flagyl 500mg/NS 100 ML IV SCH ×3 (00:06→16:46)
[2021-05-01] MEDS: albuterol 2.5 MG/3 ML nebule NEB SCH ×4 (02:22→22:22)
[2021-05-01 07:19] LABS: BASOPHILS % (AUTO) 0.3 % (0-1); EOSINOPHILS % (AUTO) 0.1 % (0-6); HEMATOCRIT 24.7 % (42.0-52.0); LYMPHOCYTES # (AUTO) 0.5 X10'3 (1.1-4.8); LYMPHOCYTES % (AUTO) 5.2 % (21-51); MEAN CORPUSCULAR HEMOGLOBIN 27.6 PG (27.0-31.0); MEAN CORPUSCULAR HGB CONC 32.4 g/dL (33.0-36.5); MEAN CORPUSCULAR VOLUME 85.1 FL (78-98); MEAN PLATELET VOLUME 7.7 FL (7.4-10.4); MONOCYTES # (AUTO) 0.3 X10'3 (0-0.9); MONOCYTES % (AUTO) 3.5 % (2-12); NEUTROPHILS # (AUTO) 8.4 X10'3 (1.8-7.7); NEUTROPHILS % (AUTO) 90.9 % (42-75); PLATELET COUNT 139 X10'3 (140-440); RED BLOOD COUNT 2.91 X10'6 (4.70-6.10); RED CELL DISTRIBUTION WIDTH 19.5 % (11.5-14.5); WHITE BLOOD COUNT 9.2 X10'3 (4.5-11.0)
[2021-05-01] MEDS: budesonide 0.5mg/2ml UD nebule IH SCH ×2 (07:28→22:22)
[2021-05-01 07:44] LABS: ALANINE AMINOTRANSFERASE 20 U/L (12-78); ALBUMIN 1.8 G/DL (3.4-5.0); ALBUMIN/GLOBULIN RATIO 0.6 (1.1-1.5); ALKALINE PHOSPHATASE 69 IU/L (46-116); ANION GAP 9 (8-16); ASPARTATE AMINO TRANSFERASE 22 U/L (10-37); BILIRUBIN,TOTAL 0.5 MG/DL (0.1-1.0); BLOOD UREA NITROGEN 80 MG/DL (7-18); BUN/CREATININE RATIO 48.5 (5.4-32.0); CALCIUM 8.6 MG/DL (8.5-10.1); CHLORIDE 100 MMOL/L (99-107); CREATININE 1.65 MG/DL (0.60-1.10); GLUCOSE 92 MG/DL (70-104); MAGNESIUM 2.4 MG/DL (1.5-2.4); POTASSIUM 3.7 MMOL/L (3.5-5.1); SODIUM 146 MMOL/L (135-145); TOTAL CARBON DIOXIDE 36.9 MMOL/L (24-32); TOTAL PROTEIN 4.9 G/DL (6.4-8.2); eGFR 39 ML/MIN
[2021-05-01] MEDS: levoTHYROXINE 125mcg tablet PO SCH (08:00)
[2021-05-01] MEDS: docusate sod 100mg capsule PO SCH ×2 (08:00→20:00)
[2021-05-01] MEDS: furosemide 20MG tablet PO SCH ×2 (08:00→20:00)
[2021-05-01] MEDS: K and/or MAG REPLACEMENT MC SCH ×2 (08:00→20:00)
[2021-05-01] MEDS: amLODIPine 5mg tablet PO SCH (08:00)
--- NOTE | 2021-05-01 13:11 | NUR ---
Paged speech therapist regarding swallow eval. Per Dr. Mary, patient will not be having pleurodesis.
--- NOTE | 2021-05-01 14:49 | NUR ---
PAGER ID: [phone] MESSAGE: [phone]. PTT >[phone]. Rosemary WILSON [phone]
[2021-05-01] MEDS ORDERED: LIDOcaine 2% 10ml TOPICAL JELLY (Urojet) TP ONE (16:15)
--- NOTE | 2021-05-01 18:28 | NUR ---
Problems reprioritized. Patient report given, questions answered & plan of care reviewed with Heike WILSON.
[2021-05-01] MEDS: apixaban 2.5mg tablet PO SCH (20:12)
[2021-05-01] MEDS: atorvastatin 20mg tablet PO SCH (20:12)
[2021-05-02 02:00] VITALS: BP 103/44
[2021-05-02] MEDS: albuterol 2.5 MG/3 ML nebule NEB SCH ×4 (02:17→20:51)
[2021-05-02] MEDS: metroNIDAZOLE-Flagyl 500mg/NS 100 ML IV SCH ×3 (05:27→16:37)
[2021-05-02 06:00] VITALS: BP 123/52
[2021-05-02] MEDS ORDERED: LIDOcaine 1% 30ml preserv. free vial ONE (06:57)
[2021-05-02 07:31] LABS: BASOPHILS % (AUTO) 0.4 % (0-1); EOSINOPHILS % (AUTO) 0.7 % (0-6); HEMATOCRIT 23.4 % (42.0-52.0); HEMOGLOBIN 7.6 g/dl (14.0-17.9); LYMPHOCYTES # (AUTO) 0.5 X10'3 (1.1-4.8); MEAN CORPUSCULAR HEMOGLOBIN 27.4 PG (27.0-31.0); MEAN CORPUSCULAR HGB CONC 32.5 g/dL (33.0-36.5); MEAN CORPUSCULAR VOLUME 84.3 FL (78-98); MEAN PLATELET VOLUME 7.6 FL (7.4-10.4); MONOCYTES # (AUTO) 0.3 X10'3 (0-0.9); MONOCYTES % (AUTO) 4.8 % (2-12); NEUTROPHILS # (AUTO) 5.8 X10'3 (1.8-7.7); NEUTROPHILS % (AUTO) 86.1 % (42-75); PLATELET COUNT 148 X10'3 (140-440); RED BLOOD COUNT 2.77 X10'6 (4.70-6.10); RED CELL DISTRIBUTION WIDTH 19.8 % (11.5-14.5); WHITE BLOOD COUNT 6.7 X10'3 (4.5-11.0)
[2021-05-02] MEDS: levoTHYROXINE 75mcg tablet PO SCH (07:55)
[2021-05-02] MEDS: docusate sod 100mg capsule PO SCH ×2 (07:55→19:37)
[2021-05-02] MEDS: budesonide 0.5mg/2ml UD nebule IH SCH ×2 (07:58→20:53)
[2021-05-02] MEDS: K and/or MAG REPLACEMENT MC SCH ×2 (08:00→19:34)
[2021-05-02] MEDS: furosemide 20MG tablet PO SCH (08:01)
[2021-05-02] MEDS: apixaban 2.5mg tablet PO SCH ×2 (08:01→19:37)
[2021-05-02] MEDS: amLODIPine 5mg tablet PO SCH (08:01)
[2021-05-02] MEDS: mineral oil/petrolatum, white cream 113gm jar TP SCH (08:02)
[2021-05-02 08:15] LABS: ALANINE AMINOTRANSFERASE 20 U/L (12-78); ALBUMIN 1.8 G/DL (3.4-5.0); ALBUMIN/GLOBULIN RATIO 0.6 (1.1-1.5); ALKALINE PHOSPHATASE 67 IU/L (46-116); ANION GAP 8 (8-16); ASPARTATE AMINO TRANSFERASE 21 U/L (10-37); BILIRUBIN,TOTAL 0.5 MG/DL (0.1-1.0); BLOOD UREA NITROGEN 68 MG/DL (7-18); CALCIUM 8.3 MG/DL (8.5-10.1); CHLORIDE 102 MMOL/L (99-107); CREATININE 1.51 MG/DL (0.60-1.10); GLUCOSE 88 MG/DL (70-104); MAGNESIUM 2.4 MG/DL (1.5-2.4); SODIUM 147 MMOL/L (135-145); TOTAL PROTEIN 4.7 G/DL (6.4-8.2); eGFR 44 ML/MIN
--- NOTE | 2021-05-02 08:35 | NUR ---
Paged Dr. Mary regarding critical result of K. PAGER ID: [phone] MESSAGE: [phone]. Pete patel. critical result of K 3.0. thank you.
[2021-05-02] MEDS: levoFLOXACIN-Levaquin 500mg/D5 100 ML IV SCH (09:43)
[2021-05-02] MEDS: potassium Cl 20 mEq SR tablet PO PRN ×2 (09:43→19:37)
[2021-05-02 10:00] VITALS: BP_SYST 117
[2021-05-02 10:43] LABS: % IRON SATURATION 17 % (11-46); IRON 26 UG/DL (53-167); TOTAL IRON BINDING CAPACITY 149 UG/DL (259-388)
--- NOTE | 2021-05-02 11:02 | NUR ---
Initial: Pt admitted w/ L pleural effusion, hypothyroidism, hypernatremia, encephalopathy likely secondary to dementia which has improved, and hx COPD, SBO and frequent thoracentesis currently on 1.0 NC per EMR. 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 Per ST pt has some confusion and difficulty chewing. Pt on pureed diet 0-25% avg intake x 4 meals, w/ the refusal of some meals and not meeting estimated needs. technical support intern spoke w/ pt at bedside and noted pt preferences including cream of wheat, milk, fruit, sherbert, and mostly consumes liquids at home. Recommend Ensure Enlive TIDWM to assist meeting protein/kcal needs and given wounds: physician notified. Noted pt current ht 144in likely inaccurate, w/ hx 72in per EMR. Spoke w/ RN regarding updated ht and wt as current wt unscaled. LBM 05/01, receiving routine bowel care. Will continue to monitor for further nutrition needs. Recommendations: 1. Continue pureed diet per FIREFIG[employer] EQUIPMENT SPECIALIST recs, honor pt's food preferences within diet order. Encourage PO intake 2. Ensure Enlive TIDWM; pending physician verification in EMR 3. Magic cup BIDLD 4. Bowel care per rx 5. Scaled wt this admit, subsequent weekly scaled wts Addendum: 05/02/21 at 1103 by Didi Worthington Process Excellence Manager RD Amended: Links added. Addendum: 05/02/21 at [address] JENAE has reviewed and approves of above note.
[2021-05-02 12:19] LABS: OCCULT BLOOD STOOL NEGATIVE (Neg)
[2021-05-02] MEDS: lactose-reduced food (Ensure Enlive) - 237ml bottle PO SCH ×2 (13:00→18:00)
[2021-05-02] MEDS ORDERED: iron sucrose complex injection 500 MG in normal saline 250ml IV soln 250 ML IV ONE (13:50)
--- NOTE | 2021-05-02 13:56 | NUR ---
Malnutrition consult: Received calorie count order from physician, though likely not calorie count because there are no orders in EMR and no mention in MD's note. Pt reports 2-13 lb wt loss and poor appetite per RN malnutrition screen. Pt w/ potential mild facial muscle wasting, though unsure of baseline appearance. Pt also reported to appear cachectic per ER physician note. Pt has bilateral foot trace edema, mild muscle weakness and PO intake 0-25% meals, w/ last meal up to 75%. Current bed scale wt 75.4kg, shows 12% wt loss since bed scale wt August 2020 85.8kg, though wt fluctuations may be influenced by frequent thoracentesis. Pt does not currently meet the minimum criteria for malnutrition. Addendum: 05/02/21 at [address] Amended: Links added. Addendum: 05/02/21 at [address] I have reviewed assessment by internal recruiter
[2021-05-02 15:00] VITALS: BP 103/40
[2021-05-02 18:00] VITALS: BP 108/47
--- NOTE | 2021-05-02 18:15 | NUR ---
Problems reprioritized. Patient report given, questions answered & plan of care reviewed with LA NENA .
--- NOTE | 2021-05-02 18:15 | NUR ---
Problems reprioritized. Patient report given, questions answered & plan of care reviewed with BAR .
--- NOTE | 2021-05-02 18:30 | NUR ---
Mr Herrera has been assessed as indicated. He is both pleasant and cooperative. He c/o of intermittent discomfort.CT of the abdomen has been ordered and the prep has been ordered to start tonight. He has no noted blood loss this shift. He has been repositioned comfortably frequently. Stool as collected and sent to he lab to evaluate for blood loss. He is presently resting quietly
[2021-05-02] MEDS: diatr meglu/diatrizoate 30ml oral sol.-(3 dose) bottle PO SCH (21:00)
[2021-05-02] MEDS: atorvastatin 20mg tablet PO SCH (21:08)
[2021-05-02 22:00] VITALS: BP 110/53
[2021-05-03] MEDS: albuterol 2.5 MG/3 ML nebule NEB SCH ×4 (01:59→20:21)
[2021-05-03 02:00] VITALS: BP 117/47
--- NOTE | 2021-05-03 05:10 | NUR ---
Problems reprioritized. Patient report given, questions answered & plan of care reviewed with STEVE Hobbs.
[2021-05-03 06:00] VITALS: BP 103/57
[2021-05-03] MEDS: budesonide 0.5mg/2ml UD nebule IH SCH (07:32)
[2021-05-03] MEDS: diatr meglu/diatrizoate 30ml oral sol.-(3 dose) bottle PO SCH (07:51)
[2021-05-03] MEDS: apixaban 2.5mg tablet PO SCH ×2 (07:52→20:57)
[2021-05-03] MEDS: amLODIPine 5mg tablet PO SCH (07:52)
[2021-05-03] MEDS: furosemide 20MG tablet PO SCH (07:53)
[2021-05-03] MEDS: docusate sod 100mg capsule PO SCH ×2 (07:54→20:00)
[2021-05-03] MEDS: levoTHYROXINE 75mcg tablet PO SCH (07:57)
[2021-05-03] MEDS: metroNIDAZOLE-Flagyl 500mg/NS 100 ML IV SCH ×2 (07:57)
[2021-05-03 09:47] LABS: BASOPHILS % (AUTO) 0.3 % (0-1); EOSINOPHILS % (AUTO) 0.5 % (0-6); LYMPHOCYTES # (AUTO) 0.5 X10'3 (1.1-4.8); LYMPHOCYTES % (AUTO) 6.6 % (21-51); MEAN CORPUSCULAR HGB CONC 31.8 g/dL (33.0-36.5); MEAN CORPUSCULAR VOLUME 84.8 FL (78-98); MEAN PLATELET VOLUME 7.6 FL (7.4-10.4); MONOCYTES # (AUTO) 0.3 X10'3 (0-0.9); MONOCYTES % (AUTO) 4.5 % (2-12); NEUTROPHILS # (AUTO) 6.2 X10'3 (1.8-7.7); NEUTROPHILS % (AUTO) 88.1 % (42-75); PLATELET COUNT 164 X10'3 (140-440); RED BLOOD COUNT 2.95 X10'6 (4.70-6.10); RED CELL DISTRIBUTION WIDTH 19.9 % (11.5-14.5)
[2021-05-03 10:05] LABS: ALANINE AMINOTRANSFERASE 21 U/L (12-78); ALBUMIN 1.8 G/DL (3.4-5.0); ALBUMIN/GLOBULIN RATIO 0.6 (1.1-1.5); ANION GAP 6 (8-16); ASPARTATE AMINO TRANSFERASE 21 U/L (10-37); BILIRUBIN,TOTAL 0.4 MG/DL (0.1-1.0); BLOOD UREA NITROGEN 61 MG/DL (7-18); BUN/CREATININE RATIO 39.1 (5.4-32.0); CALCIUM 8.2 MG/DL (8.5-10.1); CHLORIDE 103 MMOL/L (99-107); CREATININE 1.56 MG/DL (0.60-1.10); GLUCOSE 147 MG/DL (70-104); MAGNESIUM 2.1 MG/DL (1.5-2.4); SODIUM 145 MMOL/L (135-145); TOTAL CARBON DIOXIDE 35.7 MMOL/L (24-32); TOTAL PROTEIN 4.6 G/DL (6.4-8.2); eGFR 42 ML/MIN
[2021-05-03 11:00] VITALS: BP 101/60
[2021-05-03 11:35] LABS: ANISOCYTOSIS 2+; ELLIPTOCYTES 1+; PLATELET ESTIMATE NORMAL
[2021-05-03 11:36] LABS: BURR CELLS FEW; SCHISTOCYTES FEW
[2021-05-03] MEDS ORDERED: mineral oil 133ml enema RC ONE (13:20)
[2021-05-03] MEDS ORDERED: lactulose 20gm/30ml cup PO ONE (13:20)
--- NOTE | 2021-05-03 14:34 | NUR ---
PRESSURE ULCER EDUCATION: DEFINITION: A pressure ulcer is an area of skin that breaks down when you stay in one position too long. The constant pressure against the skin reduces the blood flow to that area and the affected tissue dies. CAUSES: "Being bedridden or in a wheelchair "Fragile skin "Having a chronic condition, such as diabetes or vascular disease "Inability to move certain parts of your body without assistance "Older age "Incontinence of urine or stool SYMPTOMS: "A reddened area that DOES NOT turn white when pressed on - this can be the beginning of a pressure ulcer "A blister, deep sore or a crater - these can be advanced pressure ulcers FIRST AID: "Relieve the pressure on this area "Keep the area clean and dry "Call your primary doctor if you see any of the above symptoms "DO NOT massage the area "DO NOT use a donut shaped or ring shaped pillow- these actually interfere with the blood flow and cause complications PREVENTION: "Check for pressure ulcers everyday "Change position at least every two hours to relieve pressure "Use items that help relieve pressure- pillows, sheepskin, foam padding, and powders. "Keep skin clean and dry "Eat healthy well balanced meals "Exercise daily IF YOU SEE ANY OF THESE SYMPTOMS WHILE IN THE HOSPITAL - TELL YOUR NURSE IMMEDIATELY. IF YOU SEE ANY OF THESE SYMPTOMS WHILE AT HOME OR HAVE ANY QUESTIONS OR CONCERNS ABOUT PRESSURE ULCERS - CALL YOUR PRIMARY DOCTOR IMMEDIATELY. Addendum: 05/03/21 at 1434 by Ysabel Dubose RN Amended: Links added.
[2021-05-03 18:00] VITALS: BP 111/61
--- NOTE | 2021-05-03 19:12 | NUR ---
Problems reprioritized. Patient report given, questions answered & plan of care reviewed with STEVE VALADEZ.
[2021-05-03] MEDS: K and/or MAG REPLACEMENT MC SCH (20:00)
[2021-05-03] MEDS: atorvastatin 20mg tablet PO SCH (20:57)
[2021-05-03 22:00] VITALS: BP 108/59
[2021-05-04 02:00] VITALS: BP 117/65
[2021-05-04] MEDS: albuterol 2.5 MG/3 ML nebule NEB SCH ×4 (02:39→20:02)
[2021-05-04 05:50] LABS: BASOPHILS % (AUTO) 0.4 % (0-1); EOSINOPHILS # (AUTO) 0.1 X10'3 (0-0.9); EOSINOPHILS % (AUTO) 1.5 % (0-6); HEMATOCRIT 24.1 % (42.0-52.0); HEMOGLOBIN 7.7 g/dl (14.0-17.9); LYMPHOCYTES # (AUTO) 0.5 X10'3 (1.1-4.8); LYMPHOCYTES % (AUTO) 9.9 % (21-51); MEAN CORPUSCULAR HEMOGLOBIN 27.3 PG (27.0-31.0); MEAN CORPUSCULAR HGB CONC 32.1 g/dL (33.0-36.5); MEAN PLATELET VOLUME 7.8 FL (7.4-10.4); MONOCYTES # (AUTO) 0.4 X10'3 (0-0.9); MONOCYTES % (AUTO) 6.9 % (2-12); NEUTROPHILS # (AUTO) 4.4 X10'3 (1.8-7.7); NEUTROPHILS % (AUTO) 81.3 % (42-75); PLATELET COUNT 181 X10'3 (140-440); RED BLOOD COUNT 2.83 X10'6 (4.70-6.10); RED CELL DISTRIBUTION WIDTH 20.3 % (11.5-14.5); WHITE BLOOD COUNT 5.4 X10'3 (4.5-11.0)
[2021-05-04 06:00] VITALS: BP 100/51
[2021-05-04 06:11] LABS: ALANINE AMINOTRANSFERASE 34 U/L (12-78); ALBUMIN 1.9 G/DL (3.4-5.0); ALBUMIN/GLOBULIN RATIO 0.7 (1.1-1.5); ALKALINE PHOSPHATASE 65 IU/L (46-116); ANION GAP 6 (8-16); ASPARTATE AMINO TRANSFERASE 20 U/L (10-37); BILIRUBIN,TOTAL 0.5 MG/DL (0.1-1.0); BLOOD UREA NITROGEN 55 MG/DL (7-18); BUN/CREATININE RATIO 38.5 (5.4-32.0); CALCIUM 8.4 MG/DL (8.5-10.1); CHLORIDE 103 MMOL/L (99-107); CREATININE 1.43 MG/DL (0.60-1.10); GLUCOSE 88 MG/DL (70-104); POTASSIUM 3.9 MMOL/L (3.5-5.1); SODIUM 144 MMOL/L (135-145); TOTAL CARBON DIOXIDE 35.5 MMOL/L (24-32); TOTAL PROTEIN 4.5 G/DL (6.4-8.2); eGFR 47 ML/MIN
[2021-05-04] MEDS: K and/or MAG REPLACEMENT MC SCH ×2 (08:00→19:11)
[2021-05-04] MEDS: mineral oil/petrolatum, white cream 113gm jar TP SCH (08:00)
[2021-05-04] MEDS: budesonide 0.5mg/2ml UD nebule IH SCH ×2 (08:02→20:02)
[2021-05-04] MEDS: levoTHYROXINE 75mcg tablet PO SCH (08:22)
[2021-05-04] MEDS: metroNIDAZOLE-Flagyl 500mg/NS 100 ML IV SCH ×3 (08:22→15:20)
[2021-05-04] MEDS: levoFLOXACIN-Levaquin 500mg/D5 100 ML IV SCH (08:22)
[2021-05-04] MEDS: furosemide 20MG tablet PO SCH (08:22)
[2021-05-04] MEDS: amLODIPine 5mg tablet PO SCH (08:24)
[2021-05-04] MEDS: apixaban 2.5mg tablet PO SCH ×2 (08:24→20:31)
[2021-05-04] MEDS: docusate sod 100mg capsule PO SCH ×2 (08:24→20:00)
[2021-05-04 09:55] LABS: ANISOCYTOSIS 3+; ELLIPTOCYTES 1+; PLATELET ESTIMATE NORMAL
[2021-05-04 10:00] LABS: BURR CELLS FEW; POLYCHROMASIA FEW
[2021-05-04 11:00] VITALS: BP 111/50
[2021-05-04] MEDS ORDERED: mineral oil 133ml enema RC STA (13:39)
[2021-05-04] MEDS ORDERED: mineral oil 133ml enema RC PRN (13:40)
[2021-05-04] MEDS: lactulose 20gm/30ml cup PO SCH ×2 (14:05→18:00)
[2021-05-04 15:00] VITALS: BP 99/50
[2021-05-04] MEDS: atorvastatin 20mg tablet PO SCH (20:31)
[2021-05-04 22:00] VITALS: BP 91/49
[2021-05-05 02:00] VITALS: BP 100/57
[2021-05-05] MEDS: albuterol 2.5 MG/3 ML nebule NEB SCH ×4 (03:09→20:25)
[2021-05-05 06:00] VITALS: BP 110/50
[2021-05-05] MEDS: lactulose 20gm/30ml cup PO SCH ×3 (07:21→15:20)
[2021-05-05] MEDS: metroNIDAZOLE-Flagyl 500mg/NS 100 ML IV SCH ×3 (07:21→15:20)
[2021-05-05] MEDS: levoTHYROXINE 75mcg tablet PO SCH (07:22)
[2021-05-05] MEDS: furosemide 20MG tablet PO SCH (07:22)
[2021-05-05] MEDS: apixaban 2.5mg tablet PO SCH ×2 (07:22→20:00)
[2021-05-05] MEDS: docusate sod 100mg capsule PO SCH ×2 (07:22→20:00)
[2021-05-05] MEDS: amLODIPine 5mg tablet PO SCH (07:22)
[2021-05-05] MEDS: budesonide 0.5mg/2ml UD nebule IH SCH ×2 (08:00→20:25)
[2021-05-05] MEDS: mineral oil/petrolatum, white cream 113gm jar TP SCH (08:00)
[2021-05-05] MEDS: K and/or MAG REPLACEMENT MC SCH ×2 (08:00→20:00)
[2021-05-05 09:30] LABS: BASOPHILS % (AUTO) 0.4 % (0-1); EOSINOPHILS # (AUTO) 0.1 X10'3 (0-0.9); EOSINOPHILS % (AUTO) 1.1 % (0-6); HEMATOCRIT 25.5 % (42.0-52.0); HEMOGLOBIN 8.2 g/dl (14.0-17.9); LYMPHOCYTES # (AUTO) 0.6 X10'3 (1.1-4.8); LYMPHOCYTES % (AUTO) 9.1 % (21-51); MEAN CORPUSCULAR HEMOGLOBIN 27.3 PG (27.0-31.0); MEAN CORPUSCULAR HGB CONC 32.1 g/dL (33.0-36.5); MEAN CORPUSCULAR VOLUME 84.9 FL (78-98); MEAN PLATELET VOLUME 7.2 FL (7.4-10.4); MONOCYTES # (AUTO) 0.4 X10'3 (0-0.9); MONOCYTES % (AUTO) 6.3 % (2-12); NEUTROPHILS # (AUTO) 5.1 X10'3 (1.8-7.7); NEUTROPHILS % (AUTO) 83.1 % (42-75); PLATELET COUNT 204 X10'3 (140-440); RED BLOOD COUNT 3.01 X10'6 (4.70-6.10); RED CELL DISTRIBUTION WIDTH 20.3 % (11.5-14.5); WHITE BLOOD COUNT 6.1 X10'3 (4.5-11.0)
[2021-05-05 10:04] LABS: ANISOCYTOSIS 3+; ELLIPTOCYTES 1+; MICROCYTOSIS 1+; PLATELET ESTIMATE NORMAL; POIKILOCYTOSIS FEW
--- NOTE | 2021-05-05 10:17 | NUR ---
Reassessment: Pt continues on pureed diet with thin liquids per ST recs. PO intake has significantly improved since last nutrition assessment 05/02, documented with average 80% PO intake of meals. Pt now receiving an Ensure Enlive TIDWM, documented with 100% PO intake of first ONS. Overall pt meeting estimated nutrient needs and ONS may not be indicated if pt continues with current trends in PO intake of meals. CT scan of abdomen and pelvis 05/03 demonstrated a rectal stercoral colitis per physician note. Pt started on additional routine bowel care and received one time dose of Mineral oil enema 05/04; LBM 05/04. No further nutrition intervention warranted at this time. Will continue to follow. Recommendations: 1. Continue pureed diet with thin liquids per ST recs 2. Ensure Enlive TIDWM; monitor need for continuance of ONS 3. Magic cup BIDLD 4. [place] food preferences that are appropriate with diet order; pt likes cream of wheat, milk, fruit, sherbet, and mostly consumes liquids at home 5. Routine bowel care 6. Weekly scaled wts Addendum: 05/05/21 at [address] Amended: Links added.
[2021-05-05 10:31] LABS: ALANINE AMINOTRANSFERASE 21 U/L (12-78); ALBUMIN 1.9 G/DL (3.4-5.0); ALBUMIN/GLOBULIN RATIO 0.7 (1.1-1.5); ALKALINE PHOSPHATASE 68 IU/L (46-116); ANION GAP 8 (8-16); ASPARTATE AMINO TRANSFERASE 21 U/L (10-37); BILIRUBIN,TOTAL 0.4 MG/DL (0.1-1.0); BLOOD UREA NITROGEN 55 MG/DL (7-18); BUN/CREATININE RATIO 32.5 (5.4-32.0); CALCIUM 8.4 MG/DL (8.5-10.1); CHLORIDE 105 MMOL/L (99-107); CREATININE 1.69 MG/DL (0.60-1.10); GLUCOSE 131 MG/DL (70-104); POTASSIUM 4.1 MMOL/L (3.5-5.1); SODIUM 146 MMOL/L (135-145); TOTAL CARBON DIOXIDE 33.2 MMOL/L (24-32); TOTAL PROTEIN 4.7 G/DL (6.4-8.2); eGFR 38 ML/MIN
[2021-05-05 11:00] VITALS: BP 98/56
[2021-05-05 15:00] VITALS: BP 102/50
[2021-05-05] MEDS: lactose-reduced food (Ensure Enlive) - 237ml bottle PO SCH (18:00)
[2021-05-05] MEDS: atorvastatin 20mg tablet PO SCH (21:42)
[2021-05-05 22:00] VITALS: BP 102/44
[2021-05-06 02:00] VITALS: BP 109/51
[2021-05-06] MEDS: albuterol 2.5 MG/3 ML nebule NEB SCH ×4 (03:03→20:26)
[2021-05-06 06:00] VITALS: BP 98/42
--- NOTE | 2021-05-06 06:30 | NUR ---
Problems reprioritized. Patient report given, questions answered & plan of care reviewed with STEVE Hobbs.
[2021-05-06] MEDS: mineral oil/petrolatum, white cream 113gm jar TP SCH (08:00)
[2021-05-06] MEDS ORDERED: mineral oil 133ml enema RC SCH (08:00)
[2021-05-06] MEDS: K and/or MAG REPLACEMENT MC SCH ×2 (08:00→20:00)
[2021-05-06] MEDS: amLODIPine 5mg tablet PO SCH (08:00)
[2021-05-06] MEDS: docusate sod 100mg capsule PO SCH ×2 (08:11→20:21)
[2021-05-06] MEDS: apixaban 2.5mg tablet PO SCH ×2 (08:11→20:21)
[2021-05-06] MEDS: levoTHYROXINE 75mcg tablet PO SCH (08:12)
[2021-05-06] MEDS: lactulose 20gm/30ml cup PO SCH ×3 (08:13→20:21)
[2021-05-06] MEDS: furosemide 20MG tablet PO SCH (08:13)
[2021-05-06] MEDS: metroNIDAZOLE-Flagyl 500mg/NS 100 ML IV SCH ×2 (08:14)
[2021-05-06] MEDS: lactose-reduced food (Ensure Enlive) - 237ml bottle PO SCH ×2 (08:16→18:00)
[2021-05-06] MEDS: levoFLOXACIN-Levaquin 250mg/D5 50 ML IV SCH (08:16)
[2021-05-06] MEDS: budesonide 0.5mg/2ml UD nebule IH SCH ×2 (09:00→20:26)
[2021-05-06 09:22] LABS: BASOPHILS % (AUTO) 0.4 % (0-1); EOSINOPHILS # (AUTO) 0.1 X10'3 (0-0.9); HEMATOCRIT 23.3 % (42.0-52.0); HEMOGLOBIN 7.5 g/dl (14.0-17.9); LYMPHOCYTES # (AUTO) 0.4 X10'3 (1.1-4.8); LYMPHOCYTES % (AUTO) 6.3 % (21-51); MEAN CORPUSCULAR HEMOGLOBIN 27.4 PG (27.0-31.0); MEAN CORPUSCULAR HGB CONC 32.1 g/dL (33.0-36.5); MEAN CORPUSCULAR VOLUME 85.5 FL (78-98); MEAN PLATELET VOLUME 7.3 FL (7.4-10.4); MONOCYTES # (AUTO) 0.4 X10'3 (0-0.9); MONOCYTES % (AUTO) 6.6 % (2-12); NEUTROPHILS # (AUTO) 5.8 X10'3 (1.8-7.7); NEUTROPHILS % (AUTO) 85.7 % (42-75); PLATELET COUNT 240 X10'3 (140-440); RED BLOOD COUNT 2.73 X10'6 (4.70-6.10); RED CELL DISTRIBUTION WIDTH 20.9 % (11.5-14.5); WHITE BLOOD COUNT 6.7 X10'3 (4.5-11.0)
[2021-05-06 10:41] LABS: ANISOCYTOSIS 3+; HYPOCHROMASIA 1+; PLATELET ESTIMATE NORMAL; POLYCHROMASIA 1+
[2021-05-06 10:45] LABS: ELLIPTOCYTES 1+; SCHISTOCYTES FEW
[2021-05-06 11:00] VITALS: BP 96/40
[2021-05-06] MEDS ORDERED: sodium chloride 0.45% 1,000 ML IV SCH (11:00)
[2021-05-06 11:24] LABS: ALANINE AMINOTRANSFERASE 20 U/L (12-78); ALBUMIN 1.8 G/DL (3.4-5.0); ALBUMIN/GLOBULIN RATIO 0.7 (1.1-1.5); ALKALINE PHOSPHATASE 66 IU/L (46-116); BILIRUBIN,TOTAL 0.3 MG/DL (0.1-1.0); BLOOD UREA NITROGEN 51 MG/DL (7-18); BUN/CREATININE RATIO 32.7 (5.4-32.0); CALCIUM 8.1 MG/DL (8.5-10.1); CREATININE 1.56 MG/DL (0.60-1.10); GLUCOSE 171 MG/DL (70-104); SODIUM 145 MMOL/L (135-145); TOTAL CARBON DIOXIDE 32.4 MMOL/L (24-32); TOTAL PROTEIN 4.4 G/DL (6.4-8.2); eGFR 42 ML/MIN
[2021-05-06 11:41] LABS: ANION GAP 6 (8-16); ASPARTATE AMINO TRANSFERASE 17 U/L (10-37); CHLORIDE 107 MMOL/L (99-107)
[2021-05-06 15:00] VITALS: BP 95/49
[2021-05-06 18:45] VITALS: BP 94/51
[2021-05-06] MEDS: atorvastatin 20mg tablet PO SCH (20:21)
[2021-05-06 22:00] VITALS: BP 91/49
[2021-05-07] MEDS: metroNIDAZOLE-Flagyl 500mg/NS 100 ML IV SCH ×3 (01:31→20:44)
[2021-05-07 02:00] VITALS: BP 105/43
[2021-05-07] MEDS: albuterol 2.5 MG/3 ML nebule NEB SCH ×4 (03:00→20:40)
[2021-05-07 06:00] VITALS: BP 108/46
--- NOTE | 2021-05-07 06:27 | NUR ---
Problems reprioritized. Patient report given , questions answered & plan of care reviewed with Anjel.
[2021-05-07 07:52] LABS: BASOPHILS % (AUTO) 0.3 % (0-1); EOSINOPHILS # (AUTO) 0.1 X10'3 (0-0.9); EOSINOPHILS % (AUTO) 2.2 % (0-6); HEMATOCRIT 24.7 % (42.0-52.0); HEMOGLOBIN 7.9 g/dl (14.0-17.9); LYMPHOCYTES # (AUTO) 0.9 X10'3 (1.1-4.8); LYMPHOCYTES % (AUTO) 13.6 % (21-51); MEAN CORPUSCULAR HEMOGLOBIN 27.4 PG (27.0-31.0); MEAN CORPUSCULAR HGB CONC 31.8 g/dL (33.0-36.5); MEAN CORPUSCULAR VOLUME 86.2 FL (78-98); MEAN PLATELET VOLUME 7.4 FL (7.4-10.4); MONOCYTES # (AUTO) 0.7 X10'3 (0-0.9); MONOCYTES % (AUTO) 10.4 % (2-12); NEUTROPHILS # (AUTO) 4.8 X10'3 (1.8-7.7); NEUTROPHILS % (AUTO) 73.5 % (42-75); PLATELET COUNT 299 X10'3 (140-440); RED BLOOD COUNT 2.87 X10'6 (4.70-6.10); WHITE BLOOD COUNT 6.6 X10'3 (4.5-11.0)
[2021-05-07] MEDS: K and/or MAG REPLACEMENT MC SCH ×3 (08:00→20:00)
[2021-05-07] MEDS: mineral oil/petrolatum, white cream 113gm jar TP SCH (08:00)
[2021-05-07] MEDS: furosemide 20MG tablet PO SCH (08:01)
[2021-05-07] MEDS: docusate sod 100mg capsule PO SCH ×2 (08:01→20:45)
[2021-05-07] MEDS: apixaban 2.5mg tablet PO SCH ×2 (08:01→20:45)
[2021-05-07] MEDS: lactulose 20gm/30ml cup PO SCH (08:01)
[2021-05-07] MEDS: levoFLOXACIN-Levaquin 250mg/D5 50 ML IV SCH (08:01)
[2021-05-07] MEDS: levoTHYROXINE 75mcg tablet PO SCH (08:01)
[2021-05-07] MEDS: lactose-reduced food (Ensure Enlive) - 237ml bottle PO SCH ×3 (08:02→18:00)
[2021-05-07 08:24] LABS: ANION GAP 6 (8-16); BILIRUBIN,TOTAL 0.4 MG/DL (0.1-1.0); BLOOD UREA NITROGEN 49 MG/DL (7-18); BUN/CREATININE RATIO 32.7 (5.4-32.0); CALCIUM 8.6 MG/DL (8.5-10.1); CHLORIDE 106 MMOL/L (99-107); GLUCOSE 91 MG/DL (70-104); POTASSIUM 4.4 MMOL/L (3.5-5.1); SODIUM 146 MMOL/L (135-145); TOTAL CARBON DIOXIDE 34.4 MMOL/L (24-32); TOTAL PROTEIN 4.5 G/DL (6.4-8.2); eGFR 44 ML/MIN
[2021-05-07 08:25] LABS: ALANINE AMINOTRANSFERASE 20 U/L (12-78); ALBUMIN 1.8 G/DL (3.4-5.0); ALBUMIN/GLOBULIN RATIO 0.7 (1.1-1.5); ALKALINE PHOSPHATASE 63 IU/L (46-116); ASPARTATE AMINO TRANSFERASE 18 U/L (10-37)
[2021-05-07] MEDS: budesonide 0.5mg/2ml UD nebule IH SCH ×2 (09:03→20:40)
[2021-05-07 09:49] LABS: ANISOCYTOSIS 3+; PLATELET ESTIMATE NORMAL; POIKILOCYTOSIS 1+; POLYCHROMASIA FEW; SCHISTOCYTES FEW; TOTAL CELLS COUNTED 100
[2021-05-07 11:00] VITALS: BP 102/48
[2021-05-07 15:00] VITALS: BP 96/48
[2021-05-07] MEDS ORDERED: potassium Cl 20 mEq SR tablet PO PRN ×2 (17:35)
[2021-05-07] MEDS ORDERED: magnesium Cl slow-release 64mg tablet PO PRN (17:35)
[2021-05-07] MEDS ORDERED: potassium CL 10mEq/100ml bag 100 ML IV PRN (17:35)
[2021-05-07] MEDS ORDERED: magnesium 4gm in 100ml NS 100 ML IV PRN (17:35)
[2021-05-07 18:00] VITALS: BP 102/52
[2021-05-07] MEDS: atorvastatin 20mg tablet PO SCH (20:45)
[2021-05-07 22:00] VITALS: BP 106/46
[2021-05-08 02:00] VITALS: BP 100/38
[2021-05-08] MEDS: metroNIDAZOLE-Flagyl 500mg/NS 100 ML IV SCH ×4 (02:34→23:43)
[2021-05-08] MEDS: albuterol 2.5 MG/3 ML nebule NEB SCH ×4 (03:09→20:50)
[2021-05-08 06:00] VITALS: BP 100/47
[2021-05-08] MEDS: docusate sod 100mg capsule PO SCH ×2 (07:25→20:07)
[2021-05-08] MEDS: levoTHYROXINE 75mcg tablet PO SCH (07:26)
[2021-05-08] MEDS: furosemide 20MG tablet PO SCH (07:26)
[2021-05-08] MEDS: apixaban 2.5mg tablet PO SCH ×2 (07:26→20:07)
[2021-05-08] MEDS: levoFLOXACIN-Levaquin 250mg/D5 50 ML IV SCH (07:26)
[2021-05-08] MEDS: K and/or MAG REPLACEMENT MC SCH ×3 (07:27→18:32)
[2021-05-08] MEDS: mineral oil/petrolatum, white cream 113gm jar TP SCH (07:27)
[2021-05-08] MEDS: lactose-reduced food (Ensure Enlive) - 237ml bottle PO SCH ×3 (08:00→18:32)
[2021-05-08] MEDS: budesonide 0.5mg/2ml UD nebule IH SCH ×2 (08:03→20:50)
[2021-05-08 11:00] VITALS: BP 98/56
[2021-05-08 14:41] LABS: BASOPHILS % (AUTO) 0.3 % (0-1); EOSINOPHILS # (AUTO) 0.1 X10'3 (0-0.9); EOSINOPHILS % (AUTO) 0.7 % (0-6); HEMATOCRIT 24.1 % (42.0-52.0); HEMOGLOBIN 7.8 g/dl (14.0-17.9); LYMPHOCYTES # (AUTO) 0.5 X10'3 (1.1-4.8); LYMPHOCYTES % (AUTO) 6.6 % (21-51); MEAN CORPUSCULAR HEMOGLOBIN 27.8 PG (27.0-31.0); MEAN CORPUSCULAR HGB CONC 32.4 g/dL (33.0-36.5); MEAN CORPUSCULAR VOLUME 85.7 FL (78-98); MONOCYTES # (AUTO) 0.9 X10'3 (0-0.9); MONOCYTES % (AUTO) 11.1 % (2-12); NEUTROPHILS # (AUTO) 6.3 X10'3 (1.8-7.7); NEUTROPHILS % (AUTO) 81.3 % (42-75); PLATELET COUNT 355 X10'3 (140-440); RED BLOOD COUNT 2.82 X10'6 (4.70-6.10); RED CELL DISTRIBUTION WIDTH 21.2 % (11.5-14.5); WHITE BLOOD COUNT 7.7 X10'3 (4.5-11.0)
[2021-05-08 15:00] VITALS: BP 102/44
[2021-05-08 15:04] LABS: ALANINE AMINOTRANSFERASE 17 U/L (12-78); ALBUMIN 1.8 G/DL (3.4-5.0); ALBUMIN/GLOBULIN RATIO 0.6 (1.1-1.5); ALKALINE PHOSPHATASE 67 IU/L (46-116); ANION GAP 4 (8-16); ASPARTATE AMINO TRANSFERASE 17 U/L (10-37); BILIRUBIN,TOTAL 0.3 MG/DL (0.1-1.0); BLOOD UREA NITROGEN 50 MG/DL (7-18); BUN/CREATININE RATIO 34.2 (5.4-32.0); CALCIUM 8.4 MG/DL (8.5-10.1); CHLORIDE 104 MMOL/L (99-107); CREATININE 1.46 MG/DL (0.60-1.10); GLUCOSE 119 MG/DL (70-104); PHOSPHORUS 2.9 MG/DL (2.3-4.5); POTASSIUM 4.4 MMOL/L (3.5-5.1); SODIUM 143 MMOL/L (135-145); TOTAL CARBON DIOXIDE 35.5 MMOL/L (24-32); TOTAL PROTEIN 4.6 G/DL (6.4-8.2); eGFR 45 ML/MIN
[2021-05-08 18:00] VITALS: BP 111/52
[2021-05-08] MEDS: atorvastatin 20mg tablet PO SCH (20:07)
[2021-05-08 22:00] VITALS: BP 114/54
[2021-05-09 02:00] VITALS: BP 104/50
[2021-05-09] MEDS: albuterol 2.5 MG/3 ML nebule NEB SCH ×3 (02:51→14:24)
[2021-05-09 06:00] VITALS: BP 109/70
[2021-05-09 06:53] LABS: BASOPHILS % (AUTO) 0.3 % (0-1); EOSINOPHILS % (AUTO) 0.1 % (0-6); HEMATOCRIT 25.6 % (42.0-52.0); HEMOGLOBIN 8.3 g/dl (14.0-17.9); LYMPHOCYTES # (AUTO) 0.5 X10'3 (1.1-4.8); LYMPHOCYTES % (AUTO) 4.9 % (21-51); MEAN CORPUSCULAR HEMOGLOBIN 27.9 PG (27.0-31.0); MEAN CORPUSCULAR HGB CONC 32.5 g/dL (33.0-36.5); MEAN CORPUSCULAR VOLUME 85.9 FL (78-98); MEAN PLATELET VOLUME 7.1 FL (7.4-10.4); MONOCYTES # (AUTO) 1.1 X10'3 (0-0.9); MONOCYTES % (AUTO) 10.5 % (2-12); NEUTROPHILS # (AUTO) 8.7 X10'3 (1.8-7.7); NEUTROPHILS % (AUTO) 84.2 % (42-75); PLATELET COUNT 386 X10'3 (140-440); RED BLOOD COUNT 2.98 X10'6 (4.70-6.10); RED CELL DISTRIBUTION WIDTH 21.4 % (11.5-14.5); WHITE BLOOD COUNT 10.3 X10'3 (4.5-11.0)
[2021-05-09 07:03] LABS: ALANINE AMINOTRANSFERASE 18 U/L (12-78); ALBUMIN 1.9 G/DL (3.4-5.0); ALBUMIN/GLOBULIN RATIO 0.6 (1.1-1.5); ALKALINE PHOSPHATASE 70 IU/L (46-116); ANION GAP 6 (8-16); ASPARTATE AMINO TRANSFERASE 18 U/L (10-37); BILIRUBIN,TOTAL 0.4 MG/DL (0.1-1.0); BLOOD UREA NITROGEN 49 MG/DL (7-18); BUN/CREATININE RATIO 33.8 (5.4-32.0); CALCIUM 8.8 MG/DL (8.5-10.1); CHLORIDE 105 MMOL/L (99-107); CREATININE 1.45 MG/DL (0.60-1.10); GLUCOSE 98 MG/DL (70-104); MAGNESIUM 1.9 MG/DL (1.5-2.4); PHOSPHORUS 3.2 MG/DL (2.3-4.5); POTASSIUM 4.4 MMOL/L (3.5-5.1); SODIUM 146 MMOL/L (135-145); TOTAL CARBON DIOXIDE 34.7 MMOL/L (24-32); TOTAL PROTEIN 4.9 G/DL (6.4-8.2); eGFR 46 ML/MIN
--- NOTE | 2021-05-09 07:16 | NUR ---
Patient in room PCU 3010. I have received report from and had the opportunity to ask questions and assume patient care.
[2021-05-09] MEDS: mineral oil/petrolatum, white cream 113gm jar TP SCH (08:00)
[2021-05-09] MEDS: lactose-reduced food (Ensure Enlive) - 237ml bottle PO SCH ×3 (08:00→18:00)
[2021-05-09] MEDS: K and/or MAG REPLACEMENT MC SCH ×2 (08:00→20:00)
[2021-05-09] MEDS: budesonide 0.5mg/2ml UD nebule IH SCH (08:28)
[2021-05-09] MEDS: docusate sod 100mg capsule PO SCH ×2 (09:46→20:34)
[2021-05-09] MEDS: furosemide 20MG tablet PO SCH (09:46)
[2021-05-09] MEDS: levoFLOXACIN-Levaquin 250mg/D5 50 ML IV SCH (09:46)
[2021-05-09] MEDS: metroNIDAZOLE-Flagyl 500mg/NS 100 ML IV SCH (09:46)
[2021-05-09] MEDS: apixaban 2.5mg tablet PO SCH ×2 (09:46→20:33)
[2021-05-09] MEDS: levoTHYROXINE 75mcg tablet PO SCH (09:53)
--- NOTE | 2021-05-09 13:03 | NUR ---
page sent Page Accepted Message: [id number]. Sofiya Herrera. patient complains of abdominal pain. He would like to have something for it. he's older. has Tylenol PRN. do you want to order anything or any testing. X [phone] Mary
[2021-05-09] MEDS: acetaminophen 325mg tablet PO PRN (13:36)
--- NOTE | 2021-05-09 14:29 | NUR ---
Page Accepted Message: [phone]. Pete Garciaguson. Patient is having respiratory distress. we have RT helping. has pleural effusion on admissions. h/o of 49 thoracentesis. we're calling a Rapid. please advise X [phone].; EVITA
[2021-05-09 14:40] LABS: ABG BASE EXCESS 6.9 mmol/L (-2.0-2.0); ABG OXYGEN SATURATION 76.5 % (94-97); ABG PCO2 (T) 119.9 mmHg (35.0-48.0); ABG PO2 (T) 54.2 mmHg (75.0-100.0); ALLEN'S TEST POSITIVE; FCOHb 0.3 % (0.0-3.9); FLOW 15 L/min; FMetHb 0.2 % (0.0-1.5); FO2Hb 76.1 % (94-97); TOTAL HEMOGLOBIN 10.4 G/dl (14.0-18.0)
[2021-05-09] MEDS ORDERED: furosemide 10 MG/1 ML 10ml inj IV ONE (15:30)
[2021-05-09] MEDS ORDERED: ipratropium/albuterol 3ml nebule NEB PRN (15:35)
[2021-05-09] MEDS ORDERED: methylPREDNISolone sod succ 125mg/2ml vial IV ONE (15:35)
[2021-05-09 16:35] LABS: ABG BASE EXCESS 0.9 mmol/L (-2.0-2.0); ABG HCO3 26.2 mmol/L (22.0-26.0); ABG OXYGEN SATURATION 97.9 % (94-97); ABG PCO2 (T) 44.6 mmHg (35.0-48.0); ABG PO2 (T) 109.7 mmHg (75.0-100.0); ALLEN'S TEST POSITIVE; FCOHb 0.3 % (0.0-3.9); FMetHb 0.4 % (0.0-1.5); FO2Hb 97.2 % (94-97); RESPIRATORY RATE 12 b/min; TIDAL VOLUME 661 mL; TOTAL HEMOGLOBIN 9.3 G/dl (14.0-18.0)
[2021-05-09] MEDS: piperacillin/tazo 3.375gm/50ml 50 ML IV SCH (17:14)
[2021-05-09] MEDS: ipratropium/albuterol 3ml nebule NEB SCH ×2 (19:23→23:13)
[2021-05-09] MEDS: methylPREDNISolone sod succ/PF 40mg inj. IV SCH (20:33)
[2021-05-09] MEDS: atorvastatin 20mg tablet PO SCH (20:34)
[2021-05-09] MEDS: furosemide 40mg/4ml inj IV SCH (20:34)
[2021-05-09 22:00] VITALS: BP 104/46
[2021-05-10] VITALS (8 sets, daily range): BP systolic 74–101; BP diastolic 37–49
[2021-05-10] MEDS: piperacillin/tazo 3.375gm/50ml 50 ML IV SCH ×3 (00:38→15:52)
[2021-05-10] MEDS: methylPREDNISolone sod succ/PF 40mg inj. IV SCH ×4 (02:00→19:38)
[2021-05-10] MEDS: ipratropium/albuterol 3ml nebule NEB SCH ×6 (02:38→22:33)
--- NOTE | 2021-05-10 06:10 | NUR ---
Patient in room PCU 3010. I have received report from Efrain WILSON and had the opportunity to ask questions and assume patient care.
--- NOTE | 2021-05-10 06:30 | NUR ---
Patient in room PCU 3010. I have received report from STEVE Zuniga and had the opportunity to ask questions and assume patient care.
[2021-05-10 07:38] LABS: BASOPHILS % (AUTO) 0.1 % (0-1); EOSINOPHILS % (AUTO) 0 % (0-6); HEMATOCRIT 24.2 % (42.0-52.0); HEMOGLOBIN 7.7 g/dl (14.0-17.9); LYMPHOCYTES # (AUTO) 0.2 X10'3 (1.1-4.8); LYMPHOCYTES % (AUTO) 2.3 % (21-51); MEAN CORPUSCULAR HEMOGLOBIN 27.4 PG (27.0-31.0); MEAN CORPUSCULAR HGB CONC 31.8 g/dL (33.0-36.5); MEAN CORPUSCULAR VOLUME 86.3 FL (78-98); MONOCYTES # (AUTO) 0.4 X10'3 (0-0.9); MONOCYTES % (AUTO) 4.5 % (2-12); NEUTROPHILS # (AUTO) 7.9 X10'3 (1.8-7.7); NEUTROPHILS % (AUTO) 93.1 % (42-75); PLATELET COUNT 378 X10'3 (140-440); RED CELL DISTRIBUTION WIDTH 21.2 % (11.5-14.5); WHITE BLOOD COUNT 8.5 X10'3 (4.5-11.0)
[2021-05-10] MEDS: apixaban 2.5mg tablet PO SCH ×2 (08:00→19:39)
[2021-05-10] MEDS: K and/or MAG REPLACEMENT MC SCH ×2 (08:00→19:28)
[2021-05-10 08:04] LABS: ALANINE AMINOTRANSFERASE 18 U/L (12-78); ALBUMIN 1.7 G/DL (3.4-5.0); ALBUMIN/GLOBULIN RATIO 0.6 (1.1-1.5); ALKALINE PHOSPHATASE 62 IU/L (46-116); ANION GAP 6 (8-16); ASPARTATE AMINO TRANSFERASE 14 U/L (10-37); BILIRUBIN,TOTAL 0.4 MG/DL (0.1-1.0); BLOOD UREA NITROGEN 56 MG/DL (7-18); BUN/CREATININE RATIO 35.2 (5.4-32.0); CALCIUM 8.7 MG/DL (8.5-10.1); CHLORIDE 104 MMOL/L (99-107); CREATININE 1.59 MG/DL (0.60-1.10); GLUCOSE 137 MG/DL (70-104); MAGNESIUM 2.1 MG/DL (1.5-2.4); PHOSPHORUS 3.6 MG/DL (2.3-4.5); POTASSIUM 4.2 MMOL/L (3.5-5.1); SODIUM 144 MMOL/L (135-145); TOTAL PROTEIN 4.6 G/DL (6.4-8.2); eGFR 41 ML/MIN
[2021-05-10] MEDS: furosemide 40mg/4ml inj IV SCH ×2 (08:18→19:39)
[2021-05-10] MEDS: levoTHYROXINE 75mcg tablet PO SCH (08:18)
[2021-05-10] MEDS: lactose-reduced food (Ensure Enlive) - 237ml bottle PO SCH ×3 (08:19→17:46)
[2021-05-10] MEDS: docusate sod 100mg capsule PO SCH ×2 (08:19→19:39)
[2021-05-10] MEDS: mineral oil/petrolatum, white cream 113gm jar TP SCH (08:19)
--- NOTE | 2021-05-10 09:33 | NUR ---
Reassessment: Pt s/p severe respiratory failure and placed on BiPAP 05/09 and continued encephalopathy and underlying dementia per MD note. A&O x 2 w/ minimal assist given at meals. Pt PO intake ~45% of puree/thin liquid meals as per [employer] recs, and ~63% PO intake of ONS Ensure Enlive. Receiving Magic Cup BIDLD, meeting 100% of estimated energy needs and 96% of estimated protein needs. Rectal stercoral colitis resolved 05/06 per physician note. LBM 05/05, receiving routine bowel care. No further nutrition intervention warranted at this time. Will continue to follow. Recommendations: 1. Continue pureed diet with thin liquids per [employer] recs, assist w/ meals 2. Ensure Enlive TIDWM 3. Magic cup BIDLD; encourage PO intake 4. [place] food preferences that are appropriate with diet order; pt likes cream of wheat, milk, fruit, sherbet, and mostly consumes liquids at home 5. Routine bowel care 6. Weekly scaled wts Addendum: 05/10/21 at 0934 by Kyle Jarrett - Nutritional Services Cook RD Amended: Links added. Addendum: 05/10/21 at [address] I have reviewed assessment by newsroom intern
--- NOTE | 2021-05-10 11:42 | NUR ---
Message: Re: HerreraPete zhang. Room: 3010. Pt had thoracentesis performed, 1500ml of fluid removed. Pt's BP's are sustaining in high 70's systolic post thora. Do you want a small fluid bolus? -[facility] #[id number] -Dr. Yap paged concerning Pt's BP
[2021-05-10 13:15] LABS: BFSOURCE LEFT PLEURAL FLD; PLEURAL FLUID PH 7.454 (7.63-7.65)
[2021-05-10 13:16] LABS: GLUCOSE,BODY FLUID 171 MG/DL
[2021-05-10 13:17] LABS: LDH,BODY FLUID 97 U/L
[2021-05-10 13:18] LABS: TOTAL PROTEIN,BODY FLUID < 2.0 G/DL
[2021-05-10 13:45] LABS: BF MESOTHELIAL CELLS FEW; BF RBC COUNT 805 /CU MM; BF WBC COUNT 220 /CU MM (0-1000); BFAPPEAR CLEAR; BFCOLOR YELLOW; BFVOLUME 60 ML; LYMPHOCYTES,BODY FLUID 49 %; MONOCYTES,BODY FLUID 25 %; NEUTROPHILS,BODY FLUID 26 %
--- NOTE | 2021-05-10 18:00 | NUR ---
[place] documentation: I have reviewed and agree with all interventions, assessments performed and documented by [facility].
--- NOTE | 2021-05-10 18:15 | NUR ---
Problems reprioritized. Patient report given, questions answered & plan of care reviewed with Efrain WILSON.
[2021-05-10] MEDS: atorvastatin 20mg tablet PO SCH (19:39)
[2021-05-11 02:00] VITALS: BP 85/45
[2021-05-11] MEDS: methylPREDNISolone sod succ/PF 40mg inj. IV SCH ×4 (02:00→19:36)
[2021-05-11] MEDS: ipratropium/albuterol 3ml nebule NEB SCH ×6 (02:18→22:46)
[2021-05-11 06:00] VITALS: BP 96/47
--- NOTE | 2021-05-11 06:20 | NUR ---
Patient in room PCU 3010. I have received report from Efrain WILSON and had the opportunity to ask questions and assume patient care.
--- NOTE | 2021-05-11 06:30 | NUR ---
Patient in room PCU 3010. I have received report from STEVE Zuniga and had the opportunity to ask questions and assume patient care.
[2021-05-11 06:42] LABS: BASOPHILS % (AUTO) 0.1 % (0-1); EOSINOPHILS % (AUTO) 0 % (0-6); HEMATOCRIT 23.6 % (42.0-52.0); HEMOGLOBIN 7.5 g/dl (14.0-17.9); LYMPHOCYTES # (AUTO) 0.3 X10'3 (1.1-4.8); LYMPHOCYTES % (AUTO) 2.5 % (21-51); MEAN CORPUSCULAR HEMOGLOBIN 27.4 PG (27.0-31.0); MEAN CORPUSCULAR HGB CONC 31.9 g/dL (33.0-36.5); MEAN CORPUSCULAR VOLUME 85.8 FL (78-98); MEAN PLATELET VOLUME 7.2 FL (7.4-10.4); MONOCYTES # (AUTO) 0.8 X10'3 (0-0.9); NEUTROPHILS # (AUTO) 10.9 X10'3 (1.8-7.7); NEUTROPHILS % (AUTO) 90.4 % (42-75); PLATELET COUNT 402 X10'3 (140-440); RED BLOOD COUNT 2.75 X10'6 (4.70-6.10); RED CELL DISTRIBUTION WIDTH 21.3 % (11.5-14.5); WHITE BLOOD COUNT 12.1 X10'3 (4.5-11.0)
[2021-05-11 07:16] LABS: ALANINE AMINOTRANSFERASE 15 U/L (12-78); ALBUMIN 1.7 G/DL (3.4-5.0); ALBUMIN/GLOBULIN RATIO 0.6 (1.1-1.5); ALKALINE PHOSPHATASE 56 IU/L (46-116); ANION GAP 6 (8-16); ASPARTATE AMINO TRANSFERASE 14 U/L (10-37); BILIRUBIN,TOTAL 0.3 MG/DL (0.1-1.0); BLOOD UREA NITROGEN 64 MG/DL (7-18); BUN/CREATININE RATIO 39.8 (5.4-32.0); CALCIUM 8.5 MG/DL (8.5-10.1); CHLORIDE 101 MMOL/L (99-107); CREATININE 1.61 MG/DL (0.60-1.10); GLUCOSE 147 MG/DL (70-104); MAGNESIUM 2.2 MG/DL (1.5-2.4); PHOSPHORUS 3.5 MG/DL (2.3-4.5); POTASSIUM 4.1 MMOL/L (3.5-5.1); SODIUM 141 MMOL/L (135-145); TOTAL CARBON DIOXIDE 33.8 MMOL/L (24-32); TOTAL PROTEIN 4.6 G/DL (6.4-8.2); eGFR 41 ML/MIN
[2021-05-11] MEDS: lactose-reduced food (Ensure Enlive) - 237ml bottle PO SCH ×3 (08:00→18:00)
[2021-05-11] MEDS: K and/or MAG REPLACEMENT MC SCH ×2 (08:00→19:42)
[2021-05-11] MEDS: levoTHYROXINE 75mcg tablet PO SCH (09:29)
[2021-05-11] MEDS: furosemide 40mg/4ml inj IV SCH ×2 (09:29→19:41)
[2021-05-11] MEDS: docusate sod 100mg capsule PO SCH ×2 (09:29→19:36)
[2021-05-11] MEDS: apixaban 2.5mg tablet PO SCH ×2 (09:30→19:36)
[2021-05-11] MEDS: piperacillin/tazo 3.375gm/50ml 50 ML IV SCH ×3 (09:30→15:02)
[2021-05-11] MEDS: mineral oil/petrolatum, white cream 113gm jar TP SCH (09:30)
[2021-05-11 11:00] VITALS: BP 89/44
[2021-05-11 15:00] VITALS: BP 95/49
--- NOTE | 2021-05-11 16:48 | NUR ---
1500 svn triaged-therapist in ER
[2021-05-11 18:00] VITALS: BP 104/51
--- NOTE | 2021-05-11 18:00 | NUR ---
[place] documentation: I have reviewed and agree with all interventions, assessments performed and documented by Jesika RN.
--- NOTE | 2021-05-11 18:15 | NUR ---
Problems reprioritized. Patient report given, questions answered & plan of care reviewed with Veronica RN.
[2021-05-11] MEDS: atorvastatin 20mg tablet PO SCH (19:36)
[2021-05-11 22:00] VITALS: BP 99/46
[2021-05-12] MEDS: methylPREDNISolone sod succ/PF 40mg inj. IV SCH ×4 (01:05→19:49)
[2021-05-12] MEDS: piperacillin/tazo 3.375gm/50ml 50 ML IV SCH ×3 (01:05→16:08)
[2021-05-12 02:00] VITALS: BP 101/50
[2021-05-12] MEDS: ipratropium/albuterol 3ml nebule NEB SCH ×6 (02:42→23:00)
[2021-05-12 06:00] VITALS: BP 108/60
[2021-05-12] MEDS: mineral oil/petrolatum, white cream 113gm jar TP SCH (08:00)
[2021-05-12] MEDS: K and/or MAG REPLACEMENT MC SCH ×2 (08:00→20:00)
[2021-05-12] MEDS: lactose-reduced food (Ensure Enlive) - 237ml bottle PO SCH ×3 (08:00→18:44)
[2021-05-12] MEDS: furosemide 40mg/4ml inj IV SCH ×2 (08:51→19:49)
[2021-05-12] MEDS: docusate sod 100mg capsule PO SCH ×2 (08:51→19:49)
[2021-05-12] MEDS: apixaban 2.5mg tablet PO SCH ×2 (08:52→19:49)
[2021-05-12] MEDS: levoTHYROXINE 75mcg tablet PO SCH (08:52)
[2021-05-12 09:42] LABS: BASOPHILS % (AUTO) 0 % (0-1); EOSINOPHILS % (AUTO) 0 % (0-6); HEMATOCRIT 23.9 % (42.0-52.0); HEMOGLOBIN 7.7 g/dl (14.0-17.9); LYMPHOCYTES # (AUTO) 0.3 X10'3 (1.1-4.8); LYMPHOCYTES % (AUTO) 2.8 % (21-51); MEAN CORPUSCULAR HEMOGLOBIN 27.7 PG (27.0-31.0); MEAN CORPUSCULAR HGB CONC 32.3 g/dL (33.0-36.5); MEAN CORPUSCULAR VOLUME 85.5 FL (78-98); MONOCYTES # (AUTO) 0.5 X10'3 (0-0.9); MONOCYTES % (AUTO) 4.8 % (2-12); NEUTROPHILS % (AUTO) 92.4 % (42-75); PLATELET COUNT 374 X10'3 (140-440); WHITE BLOOD COUNT 10.8 X10'3 (4.5-11.0)
[2021-05-12 10:05] LABS: ALANINE AMINOTRANSFERASE 16 U/L (12-78); ALBUMIN 1.6 G/DL (3.4-5.0); ALBUMIN/GLOBULIN RATIO 0.5 (1.1-1.5); ALKALINE PHOSPHATASE 56 IU/L (46-116); ASPARTATE AMINO TRANSFERASE 11 U/L (10-37); BILIRUBIN,TOTAL 0.2 MG/DL (0.1-1.0); BLOOD UREA NITROGEN 71 MG/DL (7-18); BUN/CREATININE RATIO 42.8 (5.4-32.0); CALCIUM 8.6 MG/DL (8.5-10.1); CHLORIDE 101 MMOL/L (99-107); CREATININE 1.66 MG/DL (0.60-1.10); GLUCOSE 204 MG/DL (70-104); PHOSPHORUS 2.7 MG/DL (2.3-4.5); TOTAL PROTEIN 5.1 G/DL (6.4-8.2); eGFR 39 ML/MIN
[2021-05-12 10:10] LABS: ANION GAP 5 (8-16); POTASSIUM 4.1 MMOL/L (3.5-5.1); SODIUM 140 MMOL/L (135-145)
[2021-05-12 10:35] LABS: ANISOCYTOSIS 3+; PLATELET ESTIMATE NORMAL
[2021-05-12 10:36] LABS: ELLIPTOCYTES 1+
[2021-05-12 10:37] LABS: BURR CELLS FEW; HYPOCHROMASIA 1+
[2021-05-12 11:00] VITALS: BP 102/55
[2021-05-12 15:40] VITALS: BP 85/41
[2021-05-12 18:00] VITALS: BP 99/48
[2021-05-12] MEDS: acetaminophen 325mg tablet PO PRN (18:44)
[2021-05-12] MEDS: atorvastatin 20mg tablet PO SCH (19:49)
[2021-05-12 22:00] VITALS: BP 93/48
[2021-05-13] MEDS: piperacillin/tazo 3.375gm/50ml 50 ML IV SCH ×3 (01:15→15:35)
[2021-05-13] MEDS: methylPREDNISolone sod succ/PF 40mg inj. IV SCH ×4 (01:15→20:02)
[2021-05-13 02:00] VITALS: BP 115/53
[2021-05-13] MEDS: ipratropium/albuterol 3ml nebule NEB SCH ×6 (02:54→23:00)
--- NOTE | 2021-05-13 06:24 | NUR ---
Patient in room PCU 3010. I have received report from Veronica RN and had the opportunity to ask questions and assume patient care.
[2021-05-13 06:49] VITALS: BP 111/59
[2021-05-13] MEDS: K and/or MAG REPLACEMENT MC SCH ×2 (08:00→20:00)
[2021-05-13] MEDS: lactose-reduced food (Ensure Enlive) - 237ml bottle PO SCH ×3 (08:00→20:02)
[2021-05-13] MEDS: mineral oil/petrolatum, white cream 113gm jar TP SCH (08:00)
[2021-05-13] MEDS: docusate sod 100mg capsule PO SCH ×2 (08:32→20:00)
[2021-05-13] MEDS: apixaban 2.5mg tablet PO SCH ×2 (08:32→20:03)
[2021-05-13] MEDS: furosemide 40mg/4ml inj IV SCH ×2 (08:41→20:00)
[2021-05-13] MEDS: levoTHYROXINE 75mcg tablet PO SCH (08:46)
[2021-05-13 10:12] LABS: BASOPHILS % (AUTO) 0 % (0-1); EOSINOPHILS % (AUTO) 0 % (0-6); HEMATOCRIT 25.5 % (42.0-52.0); LYMPHOCYTES # (AUTO) 0.2 X10'3 (1.1-4.8); LYMPHOCYTES % (AUTO) 1.8 % (21-51); MEAN CORPUSCULAR HEMOGLOBIN 26.8 PG (27.0-31.0); MEAN CORPUSCULAR HGB CONC 31.5 g/dL (33.0-36.5); MEAN CORPUSCULAR VOLUME 85.1 FL (78-98); MONOCYTES # (AUTO) 0.7 X10'3 (0-0.9); MONOCYTES % (AUTO) 5.6 % (2-12); NEUTROPHILS # (AUTO) 11.6 X10'3 (1.8-7.7); NEUTROPHILS % (AUTO) 92.6 % (42-75); PLATELET COUNT 386 X10'3 (140-440); RED CELL DISTRIBUTION WIDTH 21.2 % (11.5-14.5); WHITE BLOOD COUNT 12.5 X10'3 (4.5-11.0)
[2021-05-13 10:54] LABS: TOTAL CELLS COUNTED 100
[2021-05-13 10:55] LABS: ANISOCYTOSIS 3+; ELLIPTOCYTES FEW; MICROCYTOSIS 1+; PLATELET ESTIMATE NORMAL; POIKILOCYTOSIS FEW; POLYCHROMASIA FEW
[2021-05-13 11:16] VITALS: BP 113/52
[2021-05-13 11:38] LABS: ALBUMIN 1.7 G/DL (3.4-5.0); ALBUMIN/GLOBULIN RATIO 0.5 (1.1-1.5); ALKALINE PHOSPHATASE 61 IU/L (46-116); ANION GAP 5 (8-16); BLOOD UREA NITROGEN 75 MG/DL (7-18); BUN/CREATININE RATIO 46.6 (5.4-32.0); CALCIUM 8.9 MG/DL (8.5-10.1); CHLORIDE 98 MMOL/L (99-107); CREATININE 1.61 MG/DL (0.60-1.10); GLUCOSE 184 MG/DL (70-104); SODIUM 139 MMOL/L (135-145); TOTAL CARBON DIOXIDE 36.5 MMOL/L (24-32); TOTAL PROTEIN 5.2 G/DL (6.4-8.2); eGFR 41 ML/MIN
[2021-05-13 11:40] LABS: ALANINE AMINOTRANSFERASE 18 U/L (12-78); ASPARTATE AMINO TRANSFERASE 16 U/L (10-37); BILIRUBIN,TOTAL 0.3 MG/DL (0.1-1.0)
--- NOTE | 2021-05-13 15:37 | NUR ---
Student documentation: I have reviewed all interventions, assessments performed and documented by Leah ALMONTE from [facility] . Student Medication Administration: For all medication-pass' in the time frame of 6088-9159, all medication were reviewed, dispensed, administered and documented per hospital policy by Leah ALMONTE from [facility].
[2021-05-13 16:05] VITALS: BP 99/50
--- NOTE | 2021-05-13 16:32 | NUR ---
Wound care performed by myself. Dressings changed to the coccyx, mid back, and RLE. Patient tolerated well. No questions/concerns s/p wound care.
[2021-05-13 18:00] VITALS: BP 100/53
--- NOTE | 2021-05-13 18:04 | NUR ---
Problems reprioritized. Patient report given, questions answered & plan of care reviewed with Payton WILSON.
--- NOTE | 2021-05-13 18:17 | NUR ---
Patient in room PCU 3010. I have received report from Yazmin WILSON and had the opportunity to ask questions and assume patient care.
[2021-05-13] MEDS: atorvastatin 20mg tablet PO SCH (20:03)
[2021-05-13 22:00] VITALS: BP 99/50
--- NOTE | 2021-05-14 | NUR ---
Took BP prior to admin lasix. It was 93/50 and 97/48. Called MD [place] and was told to hold lasix. Notified MD of plus 4 pitting edema as well.
[2021-05-14] MEDS: piperacillin/tazo 3.375gm/50ml 50 ML IV SCH ×3 (00:21→16:43)
[2021-05-14] MEDS: HYDROcodone/acetaminophen 5mg/325mg tablet PO PRN (01:23)
[2021-05-14 02:00] VITALS: BP 117/50
[2021-05-14] MEDS: ipratropium/albuterol 3ml nebule NEB SCH ×6 (03:00→23:00)
[2021-05-14 05:16] LABS: BASOPHILS % (AUTO) 0.1 % (0-1); EOSINOPHILS % (AUTO) 0 % (0-6); HEMATOCRIT 26.1 % (42.0-52.0); HEMOGLOBIN 8.2 g/dl (14.0-17.9); LYMPHOCYTES # (AUTO) 0.4 X10'3 (1.1-4.8); LYMPHOCYTES % (AUTO) 2.3 % (21-51); MEAN CORPUSCULAR HEMOGLOBIN 27.2 PG (27.0-31.0); MEAN CORPUSCULAR HGB CONC 31.6 g/dL (33.0-36.5); MEAN CORPUSCULAR VOLUME 86.2 FL (78-98); MONOCYTES # (AUTO) 0.7 X10'3 (0-0.9); MONOCYTES % (AUTO) 4.6 % (2-12); NEUTROPHILS # (AUTO) 14.5 X10'3 (1.8-7.7); PLATELET COUNT 373 X10'3 (140-440); RED BLOOD COUNT 3.03 X10'6 (4.70-6.10); RED CELL DISTRIBUTION WIDTH 21.6 % (11.5-14.5); WHITE BLOOD COUNT 15.6 X10'3 (4.5-11.0)
[2021-05-14 05:29] LABS: ALANINE AMINOTRANSFERASE 19 U/L (12-78); ALBUMIN 1.8 G/DL (3.4-5.0); ALBUMIN/GLOBULIN RATIO 0.6 (1.1-1.5); ALKALINE PHOSPHATASE 61 IU/L (46-116); ANION GAP 3 (8-16); ASPARTATE AMINO TRANSFERASE 16 U/L (10-37); BILIRUBIN,TOTAL 0.2 MG/DL (0.1-1.0); BLOOD UREA NITROGEN 72 MG/DL (7-18); BUN/CREATININE RATIO 52.2 (5.4-32.0); CALCIUM 8.5 MG/DL (8.5-10.1); CHLORIDE 99 MMOL/L (99-107); CREATININE 1.38 MG/DL (0.60-1.10); GLUCOSE 124 MG/DL (70-104); MAGNESIUM 2.3 MG/DL (1.5-2.4); PHOSPHORUS 3.3 MG/DL (2.3-4.5); POTASSIUM 4.3 MMOL/L (3.5-5.1); SODIUM 140 MMOL/L (135-145); TOTAL CARBON DIOXIDE 37.7 MMOL/L (24-32); TOTAL PROTEIN 4.8 G/DL (6.4-8.2); eGFR 49 ML/MIN
[2021-05-14 06:00] VITALS: BP 133/62
--- NOTE | 2021-05-14 06:28 | NUR ---
Problems reprioritized. Patient report given, questions answered & plan of care reviewed with Rose WILSON.
[2021-05-14 06:42] LABS: ANISOCYTOSIS 3+; PLATELET ESTIMATE NORMAL; POIKILOCYTOSIS FEW; TOTAL CELLS COUNTED 100
[2021-05-14 06:43] LABS: BURR CELLS FEW; SCHISTOCYTES FEW
[2021-05-14] MEDS: docusate sod 100mg capsule PO SCH ×2 (06:46→20:15)
[2021-05-14] MEDS: K and/or MAG REPLACEMENT MC SCH ×2 (08:00→20:00)
[2021-05-14] MEDS: apixaban 2.5mg tablet PO SCH ×2 (08:34→20:15)
[2021-05-14] MEDS: furosemide 40mg/4ml inj IV SCH ×2 (08:35→20:15)
[2021-05-14] MEDS: methylPREDNISolone sod succ/PF 40mg inj. IV SCH ×2 (08:35→20:15)
[2021-05-14] MEDS: mineral oil/petrolatum, white cream 113gm jar TP SCH (08:42)
[2021-05-14] MEDS: levoTHYROXINE 75mcg tablet PO SCH (08:46)
[2021-05-14] MEDS: lactose-reduced food (Ensure Enlive) - 237ml bottle PO SCH ×3 (08:46→14:00)
[2021-05-14 11:00] VITALS: BP 109/48
--- NOTE | 2021-05-14 13:00 | NUR ---
Rectal tube placement rectal tube placed per Dr. Mary telephone order. due to diarrhea Kayla PCU
[2021-05-14 14:00] VITALS: BP 122/60
[2021-05-14 18:00] VITALS: BP 124/60
--- NOTE | 2021-05-14 18:28 | NUR ---
Problems reprioritized. Patient report given, questions answered & plan of care reviewed with Ginger Schilling RN.
[2021-05-14] MEDS: atorvastatin 20mg tablet PO SCH (20:15)
[2021-05-14 22:00] VITALS: BP 107/59
[2021-05-15 02:00] VITALS: BP 116/51
[2021-05-15] MEDS: ipratropium/albuterol 3ml nebule NEB SCH ×6 (02:57→23:28)
[2021-05-15] MEDS: piperacillin/tazo 3.375gm/50ml 50 ML IV SCH ×3 (04:56→16:01)
[2021-05-15 06:00] VITALS: BP 114/54
[2021-05-15] MEDS: levoTHYROXINE 75mcg tablet PO SCH (06:52)
[2021-05-15] MEDS: apixaban 2.5mg tablet PO SCH ×2 (06:54→19:59)
[2021-05-15] MEDS: methylPREDNISolone sod succ/PF 40mg inj. IV SCH ×2 (06:54→19:59)
[2021-05-15] MEDS: furosemide 40mg/4ml inj IV SCH ×2 (06:54→19:59)
[2021-05-15] MEDS: HYDROcodone/acetaminophen 5mg/325mg tablet PO PRN ×2 (06:54→20:00)
[2021-05-15] MEDS: docusate sod 100mg capsule PO SCH ×2 (06:55→19:59)
[2021-05-15] MEDS: lactose-reduced food (Ensure Enlive) - 237ml bottle PO SCH ×3 (08:00→18:00)
[2021-05-15] MEDS: mineral oil/petrolatum, white cream 113gm jar TP SCH (08:00)
--- NOTE | 2021-05-15 09:15 | NUR ---
Reassessment: [place] has improved some per physical assessment, A&O x 4 w/ minimal assist given at meals. Pt PO intake ~38% of puree/thin liquid meals as per HEAD OF TRAINING AND DEVELOPMENT recs, and ~83% PO intake of ONS Ensure Enlive. Receiving Magic Cup BIDLD, meeting ~100% of estimated energy needs and 95% of estimated protein needs. Pt now w/ rectal tube since 05/14 r/t diarrhea. No further nutrition intervention warranted at this time. Will continue to follow. Recommendations: 1. Continue pureed diet with thin liquids per HEAD OF TRAINING AND DEVELOPMENT recs, assist w/ meals 2. Ensure Enlive TIDWM 3. Magic cup BIDLD; encourage PO intake 4. [place] food preferences that are appropriate with diet order; pt likes cream of wheat, milk, fruit, sherbet, and mostly consumes liquids at home 5. Routine bowel care 6. Weekly scaled wts Addendum: 05/15/21 at [address] Amended: Links added.
--- NOTE | 2021-05-15 09:53 | NUR ---
Missing zosyn Page to pharmacy regarding Zosyn Could someone bring up 3010 Myriam Herrera on the next run; 0800 dose missing. Kayla WILL
[2021-05-15 11:00] VITALS: BP 148/43
[2021-05-15 11:21] LABS: BASOPHILS % (AUTO) 0.2 % (0-1); EOSINOPHILS % (AUTO) 0 % (0-6); HEMATOCRIT 26.6 % (42.0-52.0); HEMOGLOBIN 8.4 g/dl (14.0-17.9); LYMPHOCYTES # (AUTO) 0.2 X10'3 (1.1-4.8); LYMPHOCYTES % (AUTO) 1.4 % (21-51); MEAN CORPUSCULAR HEMOGLOBIN 27.1 PG (27.0-31.0); MEAN CORPUSCULAR HGB CONC 31.7 g/dL (33.0-36.5); MEAN CORPUSCULAR VOLUME 85.7 FL (78-98); MONOCYTES # (AUTO) 0.7 X10'3 (0-0.9); MONOCYTES % (AUTO) 4.2 % (2-12); NEUTROPHILS # (AUTO) 15.9 X10'3 (1.8-7.7); NEUTROPHILS % (AUTO) 94.2 % (42-75); PLATELET COUNT 329 X10'3 (140-440); WHITE BLOOD COUNT 16.9 X10'3 (4.5-11.0)
[2021-05-15 11:33] LABS: ANISOCYTOSIS 3+; PLATELET ESTIMATE NORMAL; TOTAL CELLS COUNTED 100
[2021-05-15 11:34] LABS: BURR CELLS FEW; ELLIPTOCYTES FEW
[2021-05-15 11:44] LABS: ALANINE AMINOTRANSFERASE 21 U/L (12-78); ALBUMIN 1.6 G/DL (3.4-5.0); ALBUMIN/GLOBULIN RATIO 0.5 (1.1-1.5); ALKALINE PHOSPHATASE 65 IU/L (46-116); ANION GAP 5 (8-16); ASPARTATE AMINO TRANSFERASE 17 U/L (10-37); BILIRUBIN,TOTAL 0.2 MG/DL (0.1-1.0); BLOOD UREA NITROGEN 68 MG/DL (7-18); BUN/CREATININE RATIO 49.6 (5.4-32.0); CALCIUM 8.3 MG/DL (8.5-10.1); CHLORIDE 99 MMOL/L (99-107); CREATININE 1.37 MG/DL (0.60-1.10); GLUCOSE 139 MG/DL (70-104); MAGNESIUM 2.2 MG/DL (1.5-2.4); PHOSPHORUS 3.3 MG/DL (2.3-4.5); POTASSIUM 4.7 MMOL/L (3.5-5.1); SODIUM 141 MMOL/L (135-145); TOTAL CARBON DIOXIDE 37.5 MMOL/L (24-32); eGFR 49 ML/MIN
[2021-05-15] MEDS: K and/or MAG REPLACEMENT MC SCH ×2 (11:57→20:00)
--- NOTE | 2021-05-15 16:00 | NUR ---
CDIFF sent down for testing due to liquid stool. [facility]
[2021-05-15 16:17] VITALS: BP 105/48
[2021-05-15 18:00] VITALS: BP 112/53
--- NOTE | 2021-05-15 18:06 | NUR ---
Problems reprioritized. Patient report given, questions answered & plan of care reviewed with Ginger WILSON.
[2021-05-15] MEDS: atorvastatin 20mg tablet PO SCH (20:00)
[2021-05-15 22:00] VITALS: BP 119/54
[2021-05-16] MEDS: piperacillin/tazo 3.375gm/50ml 50 ML IV SCH ×2 (01:12→09:44)
[2021-05-16 02:00] VITALS: BP 116/51
[2021-05-16] MEDS: ipratropium/albuterol 3ml nebule NEB SCH ×6 (02:58→23:00)
[2021-05-16 05:01] LABS: MAGNESIUM 2.2 MG/DL (1.5-2.4); PHOSPHORUS 3.5 MG/DL (2.3-4.5)
[2021-05-16 06:00] VITALS: BP 96/38
--- NOTE | 2021-05-16 07:15 | NUR ---
Problems reprioritized. Patient report given, questions answered & plan of care reviewed with STEVE Hernandez.
[2021-05-16] MEDS: lactose-reduced food (Ensure Enlive) - 237ml bottle PO SCH ×4 (08:00→19:43)
[2021-05-16] MEDS: mineral oil/petrolatum, white cream 113gm jar TP SCH (08:00)
[2021-05-16] MEDS: K and/or MAG REPLACEMENT MC SCH ×2 (08:00→20:00)
[2021-05-16] MEDS: apixaban 2.5mg tablet PO SCH ×2 (09:43→20:34)
[2021-05-16] MEDS: levoTHYROXINE 75mcg tablet PO SCH (09:43)
[2021-05-16] MEDS: docusate sod 100mg capsule PO SCH ×2 (09:43→20:34)
[2021-05-16] MEDS: HYDROcodone/acetaminophen 5mg/325mg tablet PO PRN ×2 (09:43→20:35)
[2021-05-16] MEDS: methylPREDNISolone sod succ/PF 40mg inj. IV SCH ×2 (09:44→20:34)
[2021-05-16] MEDS: furosemide 40mg/4ml inj IV SCH ×2 (09:44→20:34)
[2021-05-16 09:48] LABS: BASOPHILS % (AUTO) 0.1 % (0-1); EOSINOPHILS % (AUTO) 0 % (0-6); HEMOGLOBIN 8.9 g/dl (14.0-17.9); LYMPHOCYTES # (AUTO) 0.4 X10'3 (1.1-4.8); LYMPHOCYTES % (AUTO) 2.5 % (21-51); MEAN CORPUSCULAR HEMOGLOBIN 27.2 PG (27.0-31.0); MEAN CORPUSCULAR HGB CONC 31.7 g/dL (33.0-36.5); MEAN CORPUSCULAR VOLUME 85.6 FL (78-98); MONOCYTES # (AUTO) 0.8 X10'3 (0-0.9); MONOCYTES % (AUTO) 4.6 % (2-12); NEUTROPHILS # (AUTO) 15.4 X10'3 (1.8-7.7); NEUTROPHILS % (AUTO) 92.8 % (42-75); PLATELET COUNT 327 X10'3 (140-440); RED BLOOD COUNT 3.27 X10'6 (4.70-6.10); RED CELL DISTRIBUTION WIDTH 21.9 % (11.5-14.5); WHITE BLOOD COUNT 16.6 X10'3 (4.5-11.0)
[2021-05-16 09:58] LABS: ALANINE AMINOTRANSFERASE 21 U/L (12-78); ALBUMIN 1.7 G/DL (3.4-5.0); ALBUMIN/GLOBULIN RATIO 0.5 (1.1-1.5); ALKALINE PHOSPHATASE 67 IU/L (46-116); ANION GAP 6 (8-16); ASPARTATE AMINO TRANSFERASE 18 U/L (10-37); BILIRUBIN,TOTAL 0.3 MG/DL (0.1-1.0); BLOOD UREA NITROGEN 68 MG/DL (7-18); BUN/CREATININE RATIO 48.6 (5.4-32.0); CALCIUM 8.4 MG/DL (8.5-10.1); CHLORIDE 98 MMOL/L (99-107); GLUCOSE 166 MG/DL (70-104); POTASSIUM 4.1 MMOL/L (3.5-5.1); SODIUM 143 MMOL/L (135-145); TOTAL CARBON DIOXIDE 38.6 MMOL/L (24-32); eGFR 48 ML/MIN
[2021-05-16 10:21] LABS: ANISOCYTOSIS 3+; HYPERSEGMENTED NEUTROPHILS FEW; PLATELET ESTIMATE NORMAL; TOTAL CELLS COUNTED 100
[2021-05-16 11:00] VITALS: BP 103/49
[2021-05-16 18:00] VITALS: BP 93/51
[2021-05-16] MEDS: temazepam 15mg capsule PO PRN (20:34)
[2021-05-16] MEDS: atorvastatin 20mg tablet PO SCH (20:34)
[2021-05-16 22:00] VITALS: BP 127/56
[2021-05-17 02:00] VITALS: BP 104/50
[2021-05-17] MEDS: ipratropium/albuterol 3ml nebule NEB SCH ×6 (03:00→23:42)
[2021-05-17 03:43] LABS: BASOPHILS % (AUTO) 0.2 % (0-1); EOSINOPHILS % (AUTO) 0 % (0-6); HEMATOCRIT 25.4 % (42.0-52.0); HEMOGLOBIN 8.2 g/dl (14.0-17.9); LYMPHOCYTES # (AUTO) 0.8 X10'3 (1.1-4.8); LYMPHOCYTES % (AUTO) 5.2 % (21-51); MEAN CORPUSCULAR HEMOGLOBIN 27.3 PG (27.0-31.0); MEAN CORPUSCULAR HGB CONC 32.3 g/dL (33.0-36.5); MEAN CORPUSCULAR VOLUME 84.6 FL (78-98); MEAN PLATELET VOLUME 6.8 FL (7.4-10.4); MONOCYTES # (AUTO) 0.9 X10'3 (0-0.9); MONOCYTES % (AUTO) 5.6 % (2-12); NEUTROPHILS # (AUTO) 14.5 X10'3 (1.8-7.7); PLATELET COUNT 280 X10'3 (140-440); RED BLOOD COUNT 3.01 X10'6 (4.70-6.10); RED CELL DISTRIBUTION WIDTH 21.6 % (11.5-14.5); WHITE BLOOD COUNT 16.3 X10'3 (4.5-11.0)
[2021-05-17 03:55] LABS: ALANINE AMINOTRANSFERASE 21 U/L (12-78); ALBUMIN 1.7 G/DL (3.4-5.0); ALBUMIN/GLOBULIN RATIO 0.5 (1.1-1.5); ALKALINE PHOSPHATASE 69 IU/L (46-116); ANION GAP 6 (8-16); ASPARTATE AMINO TRANSFERASE 18 U/L (10-37); BILIRUBIN,TOTAL 0.3 MG/DL (0.1-1.0); BLOOD UREA NITROGEN 70 MG/DL (7-18); BUN/CREATININE RATIO 51.9 (5.4-32.0); CALCIUM 8.3 MG/DL (8.5-10.1); CHLORIDE 99 MMOL/L (99-107); CREATININE 1.35 MG/DL (0.60-1.10); GLUCOSE 85 MG/DL (70-104); MAGNESIUM 2.2 MG/DL (1.5-2.4); PHOSPHORUS 3.5 MG/DL (2.3-4.5); POTASSIUM 3.8 MMOL/L (3.5-5.1); SODIUM 143 MMOL/L (135-145); TOTAL CARBON DIOXIDE 38.1 MMOL/L (24-32); TOTAL PROTEIN 4.9 G/DL (6.4-8.2); eGFR 50 ML/MIN
[2021-05-17] MEDS: HYDROcodone/acetaminophen 5mg/325mg tablet PO PRN (04:07)
[2021-05-17 06:00] VITALS: BP 110/57
--- NOTE | 2021-05-17 06:30 | NUR ---
Problems reprioritized. Patient report given, questions answered & plan of care reviewed with STEVE Hernandez.
[2021-05-17] MEDS: K and/or MAG REPLACEMENT MC SCH ×2 (08:00→20:00)
[2021-05-17] MEDS: mineral oil/petrolatum, white cream 113gm jar TP SCH (08:00)
[2021-05-17] MEDS: methylPREDNISolone sod succ/PF 40mg inj. IV SCH ×2 (09:02→20:42)
[2021-05-17] MEDS: apixaban 2.5mg tablet PO SCH ×2 (09:02→20:42)
[2021-05-17] MEDS: furosemide 40mg/4ml inj IV SCH ×2 (09:02→20:42)
[2021-05-17] MEDS: docusate sod 100mg capsule PO SCH ×2 (09:03→20:42)
[2021-05-17] MEDS: levoTHYROXINE 75mcg tablet PO SCH (09:03)
[2021-05-17 11:00] VITALS: BP 101/50
[2021-05-17] MEDS: lactose-reduced food (Ensure Enlive) - 237ml bottle PO SCH ×3 (13:00→19:24)
[2021-05-17 15:00] VITALS: BP 94/48
[2021-05-17 18:00] VITALS: BP 111/46
--- NOTE | 2021-05-17 18:30 | NUR ---
Patient in room PCU 3010. I have received report from STEVE Hernandez and had the opportunity to ask questions and assume patient care.
--- NOTE | 2021-05-17 19:12 | NUR ---
Problems reprioritized. Patient report given Ginger Schilling RN, questions answered & plan of care reviewed with .
[2021-05-17] MEDS: atorvastatin 20mg tablet PO SCH (20:42)
[2021-05-17 22:00] VITALS: BP 112/53
[2021-05-18] VITALS (7 sets, daily range): BP systolic 101–124; BP diastolic 42–56
[2021-05-18] MEDS: ipratropium/albuterol 3ml nebule NEB SCH ×6 (03:46→23:06)
[2021-05-18] MEDS: HYDROcodone/acetaminophen 5mg/325mg tablet PO PRN ×2 (04:08→21:11)
[2021-05-18 04:09] LABS: BASOPHILS # (AUTO) 0.1 X10'3 (0-0.2); BASOPHILS % (AUTO) 0.3 % (0-1); EOSINOPHILS % (AUTO) 0 % (0-6); HEMATOCRIT 27.1 % (42.0-52.0); HEMOGLOBIN 8.7 g/dl (14.0-17.9); LYMPHOCYTES # (AUTO) 0.4 X10'3 (1.1-4.8); MEAN CORPUSCULAR HEMOGLOBIN 27.3 PG (27.0-31.0); MEAN CORPUSCULAR HGB CONC 32.1 g/dL (33.0-36.5); MEAN CORPUSCULAR VOLUME 84.9 FL (78-98); MONOCYTES # (AUTO) 0.2 X10'3 (0-0.9); MONOCYTES % (AUTO) 1.2 % (2-12); NEUTROPHILS # (AUTO) 17.1 X10'3 (1.8-7.7); NEUTROPHILS % (AUTO) 96.5 % (42-75); PLATELET COUNT 264 X10'3 (140-440); RED BLOOD COUNT 3.19 X10'6 (4.70-6.10); RED CELL DISTRIBUTION WIDTH 21.7 % (11.5-14.5); WHITE BLOOD COUNT 17.7 X10'3 (4.5-11.0)
[2021-05-18 04:28] LABS: ALANINE AMINOTRANSFERASE 23 U/L (12-78); ALBUMIN 1.8 G/DL (3.4-5.0); ALBUMIN/GLOBULIN RATIO 0.6 (1.1-1.5); ALKALINE PHOSPHATASE 68 IU/L (46-116); ANION GAP 5 (8-16); ASPARTATE AMINO TRANSFERASE 21 U/L (10-37); BILIRUBIN,TOTAL 0.3 MG/DL (0.1-1.0); BLOOD UREA NITROGEN 68 MG/DL (7-18); BUN/CREATININE RATIO 55.7 (5.4-32.0); CALCIUM 8.2 MG/DL (8.5-10.1); CHLORIDE 99 MMOL/L (99-107); CREATININE 1.22 MG/DL (0.60-1.10); GLUCOSE 120 MG/DL (70-104); MAGNESIUM 2.3 MG/DL (1.5-2.4); PHOSPHORUS 4.3 MG/DL (2.3-4.5); POTASSIUM 4.2 MMOL/L (3.5-5.1); SODIUM 142 MMOL/L (135-145); TOTAL PROTEIN 4.6 G/DL (6.4-8.2); eGFR 56 ML/MIN
[2021-05-18 05:56] LABS: ANISOCYTOSIS 3+; ELLIPTOCYTES FEW; LARGE PLATELETS FEW; PLATELET ESTIMATE NORMAL; TOTAL CELLS COUNTED 100
[2021-05-18 05:57] LABS: SMUDGE CELLS 1+
--- NOTE | 2021-05-18 06:40 | NUR ---
Problems reprioritized. Patient report given, questions answered & plan of care reviewed with melly Langley.
[2021-05-18] MEDS: furosemide 40mg/4ml inj IV SCH ×2 (07:32→21:11)
[2021-05-18] MEDS: methylPREDNISolone sod succ/PF 40mg inj. IV SCH ×2 (07:32→21:11)
[2021-05-18] MEDS: levoTHYROXINE 75mcg tablet PO SCH (07:32)
[2021-05-18] MEDS: K and/or MAG REPLACEMENT MC SCH ×2 (08:00→19:41)
[2021-05-18] MEDS: mineral oil/petrolatum, white cream 113gm jar TP SCH (08:00)
[2021-05-18] MEDS: apixaban 2.5mg tablet PO SCH ×2 (08:00→21:10)
[2021-05-18] MEDS: docusate sod 100mg capsule PO SCH ×2 (08:00→21:11)
[2021-05-18] MEDS: lactose-reduced food (Ensure Enlive) - 237ml bottle PO SCH ×2 (13:22→18:00)
--- NOTE | 2021-05-18 18:25 | NUR ---
Patient in room PCU 3010. I have received report from STEVE Langley and had the opportunity to ask questions and assume patient care.
[2021-05-18] MEDS: atorvastatin 20mg tablet PO SCH (21:11)
[2021-05-18] MEDS: temazepam 15mg capsule PO PRN (21:11)
[2021-05-19 02:00] VITALS: BP 121/53
[2021-05-19] MEDS: ipratropium/albuterol 3ml nebule NEB SCH ×3 (03:17→11:44)
[2021-05-19 06:00] VITALS: BP 108/41
--- NOTE | 2021-05-19 06:19 | NUR ---
Problems reprioritized. Patient report given, questions answered & plan of care reviewed with STEVE Langley.
[2021-05-19 07:01] LABS: BASOPHILS % (AUTO) 0.1 % (0-1); EOSINOPHILS % (AUTO) 0 % (0-6); LYMPHOCYTES # (AUTO) 0.3 X10'3 (1.1-4.8); LYMPHOCYTES % (AUTO) 1.1 % (21-51); MEAN CORPUSCULAR HGB CONC 31.6 g/dL (33.0-36.5); MEAN CORPUSCULAR VOLUME 85.5 FL (78-98); MEAN PLATELET VOLUME 7.3 FL (7.4-10.4); MONOCYTES # (AUTO) 0.5 X10'3 (0-0.9); MONOCYTES % (AUTO) 2.3 % (2-12); NEUTROPHILS # (AUTO) 22.8 X10'3 (1.8-7.7); NEUTROPHILS % (AUTO) 96.5 % (42-75); PLATELET COUNT 260 X10'3 (140-440); RED BLOOD COUNT 2.42 X10'6 (4.70-6.10); RED CELL DISTRIBUTION WIDTH 22.1 % (11.5-14.5); WHITE BLOOD COUNT 23.6 X10'3 (4.5-11.0)
[2021-05-19 07:10] LABS: HEMATOCRIT 20.7 % (42.0-52.0); HEMOGLOBIN 6.5 g/dl (14.0-17.9)
[2021-05-19 07:51] LABS: ALANINE AMINOTRANSFERASE 22 U/L (12-78); ALBUMIN 1.9 G/DL (3.4-5.0); ALBUMIN/GLOBULIN RATIO 0.7 (1.1-1.5); ALKALINE PHOSPHATASE 67 IU/L (46-116); ANION GAP 9 (8-16); ASPARTATE AMINO TRANSFERASE 21 U/L (10-37); BILIRUBIN,TOTAL 0.3 MG/DL (0.1-1.0); BLOOD UREA NITROGEN 66 MG/DL (7-18); BUN/CREATININE RATIO 57.4 (5.4-32.0); CALCIUM 8.3 MG/DL (8.5-10.1); CHLORIDE 99 MMOL/L (99-107); CREATININE 1.15 MG/DL (0.60-1.10); GLUCOSE 114 MG/DL (70-104); MAGNESIUM 2.4 MG/DL (1.5-2.4); POTASSIUM 3.9 MMOL/L (3.5-5.1); SODIUM 144 MMOL/L (135-145); TOTAL CARBON DIOXIDE 36.1 MMOL/L (24-32); TOTAL PROTEIN 4.8 G/DL (6.4-8.2); eGFR 60 ML/MIN
[2021-05-19 07:56] LABS: HEMATOCRIT 28.1 % (42.0-52.0); HEMOGLOBIN 8.9 g/dl (14.0-17.9); MEAN CORPUSCULAR HEMOGLOBIN 27.2 PG (27.0-31.0); MEAN CORPUSCULAR HGB CONC 31.7 g/dL (33.0-36.5); MEAN CORPUSCULAR VOLUME 85.9 FL (78-98); MEAN PLATELET VOLUME 7.2 FL (7.4-10.4); PLATELET COUNT 232 X10'3 (140-440); RED BLOOD COUNT 3.28 X10'6 (4.70-6.10); RED CELL DISTRIBUTION WIDTH 22.1 % (11.5-14.5); WHITE BLOOD COUNT 20.6 X10'3 (4.5-11.0)
[2021-05-19] MEDS: mineral oil/petrolatum, white cream 113gm jar TP SCH (08:00)
[2021-05-19] MEDS: docusate sod 100mg capsule PO SCH (08:00)
[2021-05-19] MEDS: K and/or MAG REPLACEMENT MC SCH (08:00)
[2021-05-19] MEDS: apixaban 2.5mg tablet PO SCH (08:00)
[2021-05-19] MEDS: lactose-reduced food (Ensure Enlive) - 237ml bottle PO SCH (08:00)
[2021-05-19] MEDS: furosemide 40mg/4ml inj IV SCH (09:29)
[2021-05-19] MEDS: levoTHYROXINE 75mcg tablet PO SCH (09:29)
[2021-05-19] MEDS: methylPREDNISolone sod succ/PF 40mg inj. IV SCH (09:29)
[2021-05-19 11:00] VITALS: BP 123/54
--- NOTE | 2021-05-19 13:30 | NUR ---
Pt. given discharge instructions without any further questions. Midline removed catheter tip intact. Rectal tube removed. Eagle catheter remains in place. Pt. picked up by ambulance transport at 1315.
== END 2021-05-19 13:23 | disposition hospice, home (50) | DRG 193 ==
LOC: ER 19:56 → ED HOLD 23:33 → MED 3N 04-30 01:01 → PCU 3S 05-03 18:02
PROVIDERS: ADMIT Internal Medicine; ATTEND Family Medicine
PROC: 0W9B3ZZ Drainage of Left Pleural Cavity, Percutaneous Approach (ICD-10-PCS; 2021-04-29)
PROC: 5A09357 Assistance with Respiratory Ventilation, Less than 24 Consecutive Hours, Continuous Positive Airway Pressure (ICD-10-PCS; 2021-04-30)
PROC: 5A09357 Assistance with Respiratory Ventilation, Less than 24 Consecutive Hours, Continuous Positive Airway Pressure (ICD-10-PCS; 2021-05-09)
PROC: 0W9B3ZX Drainage of Left Pleural Cavity, Percutaneous Approach, Diagnostic (ICD-10-PCS; principal; 2021-05-10)
PROC: 5A09357 Assistance with Respiratory Ventilation, Less than 24 Consecutive Hours, Continuous Positive Airway Pressure (ICD-10-PCS; 2021-05-10)
DX: J18.9 Pneumonia, unspecified organism (principal); J80 Acute respiratory distress syndrome; I21.A1 Myocardial infarction type 2; G93.41 Metabolic encephalopathy; E43 Unspecified severe protein-calorie malnutrition; I50.33 Acute on chronic diastolic (congestive) heart failure; J93.9 Pneumothorax, unspecified; E87.2 Acidosis; I48.20 Chronic atrial fibrillation, unspecified; J44.0 Chronic obstructive pulmonary disease with (acute) lower respiratory infection; J91.8 Pleural effusion in other conditions classified elsewhere; E87.0 Hyperosmolality and hypernatremia; I11.0 Hypertensive heart disease with heart failure; J98.2 Interstitial emphysema; Z20.822 Contact with and (suspected) exposure to COVID-19; R62.7 Adult failure to thrive; F32.A Depression, unspecified; D50.9 Iron deficiency anemia, unspecified; Z66 Do not resuscitate; J20.9 Acute bronchitis, unspecified; I95.9 Hypotension, unspecified; I27.81 Cor pulmonale (chronic); I27.20 Pulmonary hypertension, unspecified; I35.0 Nonrheumatic aortic (valve) stenosis; R16.0 Hepatomegaly, not elsewhere classified; K52.89 Other specified noninfective gastroenteritis and colitis; E03.9 Hypothyroidism, unspecified; F03.90 Unspecified dementia, unspecified severity, without behavioral disturbance, psychotic disturbance, mood disturbance, and anxiety; Z51.5 Encounter for palliative care; Z79.51 Long term (current) use of inhaled steroids; Z79.899 Other long term (current) drug therapy; Z68.21 Body mass index [BMI] 21.0-21.9, adult
CPT/HCPCS: 32555; 36415; 36600; 71045; 71250; 74018; 74176; 80053; 82272; 82803; 82945; 82948; 83540; 83550; 83615; 83735; 83880; 83986; 84100; 84157; 84443; 84484; 85007; 85008; 85018; 85025; 85027; 85610; 85730; 87070; 87081; 87324; 87449; 87635; 89051; 92508; 92616; 93005; 94640; 94660; 94760; 94799; 97110; 97161; 97530; 97535; 99291; C9803; G0378; J1644; J1756; J1940; J1956; J2543; J2920; J2930; J3490; J7050; Q9963